=== PATIENT | male | born 1945 | race Caucasian/White ===

== ENCOUNTER → 2016-07-12 | Outpatient (CLI) | payer MEDICARE, OTHER ==
--- NOTE | 2016-07-12 13:00 | CT ---
EXAMINATION TYPE: CT brain wo con DATE OF EXAM: 07/12/2016 12:46 PM COMPARISON: CT brain February 17, 2009 HISTORY: Parkinson's disease per order. Symptoms of change in memory and sense of falling per patient with weakness in legs. CT DLP: 1054.2 mGycm. Automated Exposure Control for Dose Reduction was Utilized. TECHNIQUE: CT scan of the head is performed without contrast. FINDINGS: There is no acute intracranial hemorrhage or midline shift identified. There is ventricul ar and sulcal prominence consistent with mild age-related cerebral atrophy. Degree of ventricular dil atation is out of portion to degree of sulcal effacement and a normal pressure hydrocephalus cannot b e excluded. Similar findings are seen on prior exam but ventricular size appears slightly more promin ent. Bilateral basal ganglia calcifications are noted. The globes are intact and the visualized sinus es are clear. IMPRESSION: No acute intracranial hemorrhage or midline shift is seen. There is mild to moderate dif fuse cerebral atrophy with a mild to moderate generalized hydrocephalus felt present. Consider NPH. C linical correlation advised.
== END ==
LOC: RADCTMAIN 12:24
PROVIDERS: ATTEND Psychiatry & Neurology Neurology
DX: G20 Parkinson's disease (principal); G91.9 Hydrocephalus, unspecified
CPT/HCPCS: 70450

== ENCOUNTER 2016-08-19 17:36 | Inpatient (IN) | payer MEDICARE, OTHER ==
[2016-08-19] MEDS ORDERED: SODIUM CHLORIDE 0.9% 1,000 ML IV STA (17:57)
--- NOTE | 2016-08-19 18:17 | ED ---
General Adult HPI - General Chief complaint: Weakness Stated complaint: weakness, cannot walk Time Seen by Provider: 08/19/16 17:57 Source: patient, family, RN notes reviewed, old records reviewed Mode of arrival: wheelchair Limitations: physical limitation - History of Present Illness Initial comments: This is a 62-year-old male here for evaluation of a. Patient does present for evaluation of weakness, debility. Patient has history of Parkinson's, cultural fdc, patient's coming in from fdc today as he has increased ability weakness and inability to ambulate, no chest pain shortness of breath no abdominal pain, states recent cough and cold. No known fevers. No sick contacts or travel history. No change in medications of recent. Patient does have a neurologist, has not seen his neurologist in some time, is supposed to see neurosurgeon. Patient's weakness has progressed the point where he can't walk or function at home - Related Data Home Medications Medication Instructions Recorded Confirmed Allopurinol [Zyloprim] 100 mg PO HS 08/19/16 08/19/16 Atenolol/Chlorthalidone [Tenoretic 0.5 tab PO HS 08/19/16 08/19/16 50 Tablet] Carbidopa-Levodopa 25-100 mg 1 tab PO TID 08/19/16 08/19/16 [Sinemet 25-100] Divalproex Sodium [Depakote] 500 mg PO BID 08/19/16 08/19/16 Levothyroxine Sodium [Synthroid] 50 mcg PO DAILY 08/19/16 08/19/16 OLANZapine [ZyPREXA] 2.5 mg PO HS 08/19/16 08/19/16 OLANZapine [ZyPREXA] 15 mg PO HS 08/19/16 08/19/16 Ziprasidone HCl [Geodon] 80 mg PO BID 08/19/16 08/19/16 Allergies Allergy/AdvReac Type Severity Reaction Status Date / Time No Known Allergies Allergy Verified 08/19/16 17:57 Review of Systems ROS Statement: Those systems with pertinent positive or pertinent negative responses have been documented in the HPI. ROS Other: All systems not noted in ROS Statement are negative. Past Medical History Past Medical History: COPD Additional Past Medical History / Comment(s): parkinsons History of Any Multi-Drug Resistant Organisms: None Reported Past Surgical History: Unable to Obtain Past Psychological History: No Psychological Hx Reported Smoking Status: Never smoker Past Alcohol Use History: None Reported Past Drug Use History: None Reported General Exam - General Exam Comments Initial Comments: Severe lower extremity weakness and overall rigidity and shaking Limitations: physical limitation General appearance: alert, in no apparent distress Head exam: Present: atraumatic, normocephalic, normal inspection Eye exam: Present: normal appearance, PERRL, EOMI. Absent: scleral icterus, conjunctival injection, periorbital swelling ENT exam: Present: normal exam, mucous membranes moist Neck exam: Present: normal inspection. Absent: tenderness, meningismus, lymphadenopathy Respiratory exam: Present: normal lung sounds bilaterally. Absent: respiratory distress, wheezes, rales, rhonchi, stridor Cardiovascular Exam: Present: regular rate, normal rhythm, normal heart sounds. Absent: systolic murmur, diastolic murmur, rubs, gallop, clicks GI/Abdominal exam: Present: soft, normal bowel sounds. Absent: distended, tenderness, guarding, rebound, rigid Extremities exam: Present: normal inspection, full ROM, normal capillary refill. Absent: tenderness, pedal edema, joint swelling, calf tenderness Back exam: Present: normal inspection Neurological exam: Present: alert, oriented X3, CN II-XII intact Psychiatric exam: Present: normal affect, normal mood Skin exam: Present: warm, dry, intact, normal color. Absent: rash Course Vital Signs 08/19/16 08/19/16 08/19/16 17:40 18:17 18:23 Temperature 97.3 F L Pulse Rate 74 79 Respiratory 20 18 22 Rate Blood Pressure 138/77 160/74 O2 Sat by Pulse 98 95 Oximetry 08/19/16 08/19/16 19:06 20:17 Temperature Pulse Rate 95 62 Respiratory 18 18 Rate Blood Pressure 144/75 130/77 O2 Sat by Pulse 97 98 Oximetry - Reevaluation(s) Reevaluation #1: 08/19/16 20:23 Patient has no seen neurological deficit, inability to ambulate when prompted EKG Findings - EKG Comments: EKG Findings:: EKG shows normal sinus rhythm rate of 71, MD 162, QRS 104, QTc 456 Medical Decision Making - Medical Decision Making 6 [id number] Parkinson's, worsening parkinsonism inability to ambulate, patient does have a neurologist Dr. Beaulieu, Will admit Parkinson's exacerbation worsening of Parkinson's and debility. Patient also having overall weakness. - Lab Data Result diagrams: 08/19/16 18:05 08/19/16 18:05 Lab Results 08/19/16 08/19/16 08/19/16 Range/Units 18:05 18:05 18:05 WBC 6.9 (3.8-10.6) k/uL RBC 4.07 L (4.30-5.90) m/uL Hgb 13.5 (13.0-17.5) gm/dL Hct 39.2 (39.0-53.0) % MCV 96.2 (80.0-100.0) fL MCH 33.2 (25.0-35.0) pg MCHC 34.5 (31.0-37.0) g/dL RDW 12.6 (11.5-15.5) % Plt Count 188 (150-450) k/uL Neutrophils % 63 % Lymphocytes % 21 % Monocytes % 9 % Eosinophils % 4 % Basophils % 1 % Neutrophils # 4.4 (1.3-7.7) k/uL Lymphocytes # 1.5 (1.0-4.8) k/uL Monocytes # 0.6 (0-1.0) k/uL Eosinophils # 0.3 (0-0.7) k/uL Basophils # 0.0 (0-0.2) k/uL PT (9.0-12.0) sec INR (<1.1) APTT (22.0-30.0) sec Sodium 145 (137-145) mmol/L Potassium 3.2 L (3.5-5.1) mmol/L Chloride 102 (98-107) mmol/L Carbon Dioxide 32 H (22-30) mmol/L Anion Gap 11 mmol/L BUN 22 H (9-20) mg/dL Creatinine 1.09 (0.66-1.25) mg/dL Est GFR (MDRD) Af Amer >60 (>60 ml/min/1.73 sqM) Est GFR (MDRD) Non-Af >60 (>60 ml/min/1.73 sqM) Glucose 116 H (74-99) mg/dL Calcium 9.4 (8.4-10.2) mg/dL Phosphorus 3.6 (2.5-4.5) mg/dL Magnesium 1.8 (1.6-2.3) mg/dL Total Bilirubin 0.7 (0.2-1.3) mg/dL AST 26 (17-59) U/L ALT 18 L (21-72) U/L Alkaline Phosphatase 88 (38-126) U/L Total Creatine Kinase 50 L (55-170) U/L CK-MB (CK-2) 0.4 (0.0-2.4) ng/mL CK-MB (CK-2) Rel Index 0.8 Troponin I <0.012 (0.000-0.034) ng/mL Total Protein 7.1 (6.3-8.2) g/dL Albumin 3.8 (3.5-5.0) g/dL Urine Color Urine Appearance (Clear) Urine pH (5.0-8.0) Ur Specific Carr (1.001-1.035) Urine Protein (Negative) Urine Glucose (UA) (Negative) Urine Ketones (Negative) Urine Blood (Negative) Urine Nitrite (Negative) Urine Bilirubin (Negative) Urine Urobilinogen (<2.0) mg/dL Ur Leukocyte Esterase (Negative) 08/19/16 08/19/16 Range/Units 18:05 18:55 WBC (3.8-10.6) k/uL RBC (4.30-5.90) m/uL Hgb (13.0-17.5) gm/dL Hct (39.0-53.0) % MCV (80.0-100.0) fL MCH (25.0-35.0) pg MCHC (31.0-37.0) g/dL RDW (11.5-15.5) % Plt Count (150-450) k/uL Neutrophils % % Lymphocytes % % Monocytes % % Eosinophils % % Basophils % % Neutrophils # (1.3-7.7) k/uL Lymphocytes # (1.0-4.8) k/uL Monocytes # (0-1.0) k/uL Eosinophils # (0-0.7) k/uL Basophils # (0-0.2) k/uL PT 9.7 (9.0-12.0) sec INR 0.9 (<1.1) APTT 22.3 (22.0-30.0) sec Sodium (137-145) mmol/L Potassium (3.5-5.1) mmol/L Chloride (98-107) mmol/L Carbon Dioxide (22-30) mmol/L Anion Gap mmol/L BUN (9-20) mg/dL Creatinine (0.66-1.25) mg/dL Est GFR (MDRD) Af Amer (>60 ml/min/1.73 sqM) Est GFR (MDRD) Non-Af (>60 ml/min/1.73 sqM) Glucose (74-99) mg/dL Calcium (8.4-10.2) mg/dL Phosphorus (2.5-4.5) mg/dL Magnesium (1.6-2.3) mg/dL Total Bilirubin (0.2-1.3) mg/dL AST (17-59) U/L ALT (21-72) U/L Alkaline Phosphatase (38-126) U/L Total Creatine Kinase (55-170) U/L CK-MB (CK-2) (0.0-2.4) ng/mL CK-MB (CK-2) Rel Index Troponin I (0.000-0.034) ng/mL Total Protein (6.3-8.2) g/dL Albumin (3.5-5.0) g/dL Urine Color Yellow Urine Appearance Clear (Clear) Urine pH 5.5 (5.0-8.0) Ur Specific Carr 1.016 (1.001-1.035) Urine Protein Trace H (Negative) Urine Glucose (UA) Negative (Negative) Urine Ketones Negative (Negative) Urine Blood Negative (Negative) Urine Nitrite Negative (Negative) Urine Bilirubin Negative (Negative) Urine Urobilinogen <2.0 (<2.0) mg/dL Ur Leukocyte Esterase Negative (Negative) - Radiology Data Radiology results: report reviewed (CT pain chest and pelvis are negative for acute disease), image reviewed Disposition Clinical Impression: Parkinsons disease, Weakness Disposition: ADMITTED IP TO THIS [facility] Condition: Fair Referrals: Marcial Diana MD [Primary Care Provider] - 1-2 days
[2016-08-19 18:34] LABS: Basophils % (A) 1 %; CH 33.9; CHCM 35.4; Eosinophils # (A) 0.3 k/uL (0-0.7); Eosinophils % (A) 4 %; HCT 39.2 % (39.0-53.0); HDW 2.64; HGB 13.5 gm/dL (13.0-17.5); Luc # (Auto) 0.15; Luc % (Auto) 2; Lymphocytes # (A) 1.5 k/uL (1.0-4.8); Lymphocytes % (A) 21 %; MCH 33.2 pg (25.0-35.0); MCHC 34.5 g/dL (31.0-37.0); MCV 96.2 fL (80.0-100.0); Mean Platelet Volume 6.9; Monocytes # (A) 0.6 k/uL (0-1.0); Monocytes % (A) 9 %; Neutrophils # (A) 4.4 k/uL (1.3-7.7); Neutrophils % (A) 63 %; RBC 4.07 m/uL (4.30-5.90); RDW 12.6 % (11.5-15.5); WBC 6.9 k/uL (3.8-10.6); WBC (Perox) 6.85
[2016-08-19 18:44] LABS: INR 0.9 (<1.1); Partial Thromboplastin Time 22.3 sec (22.0-30.0); Prothrombin Time 9.7 sec (9.0-12.0)
[2016-08-19 18:45] LABS: ALT 18 U/L (21-72); AST 26 U/L (17-59); Alkaline Phosphatase 88 U/L (38-126); Anion Gap 11 mmol/L; Blood Urea Nitrogen 22 mg/dL (9-20); Calcium 9.4 mg/dL (8.4-10.2); Carbon Dioxide 32 mmol/L (22-30); Chloride 102 mmol/L (98-107); Glucose 116 mg/dL (74-99); Magnesium 1.8 mg/dL (1.6-2.3); Non-African American GFR(MDRD) >60 (>60 ml/min/1.73 sqM); Phosphorous 3.6 mg/dL (2.5-4.5); Potassium 3.2 mmol/L (3.5-5.1); Sodium 145 mmol/L (137-145); Total Bilirubin 0.7 mg/dL (0.2-1.3); Total Protein 7.1 g/dL (6.3-8.2)
[2016-08-19 19:08] LABS: Creatine Kinase 50 U/L (55-170)
[2016-08-19 19:12] LABS: Appearance,Urine Clear (Clear); Bilirubin,Urine Negative (Negative); Glucose,Urine (UA) Negative (Negative); Ketones,Urine Negative (Negative); Leukocyte Esterase,Urine Negative (Negative); Nitrite,Urine Negative (Negative); PH, Urine 5.5 (5.0-8.0); Protein,Urine Trace (Negative); Specific Gravity,Urine 1.016 (1.001-1.035); UA Billing (MACRO vs. MICRO) CHEM; Urobilinogen,Urine <2.0 mg/dL (<2.0)
[2016-08-19 19:22] LABS: Creatine Kinase MB 0.4 ng/mL (0.0-2.4); Troponin I <0.012 ng/mL (0.000-0.034)
--- NOTE | 2016-08-19 19:47 | XR ---
EXAMINATION TYPE: XR chest 1V DATE OF EXAM: 08/19/2016 7:41 PM COMPARISON: NONE HISTORY: Weakness, pain TECHNIQUE: Single frontal view of the chest is obtained. FINDINGS: There is no focal air space opacity, pleural effusion, or pneumothorax seen. The cardiac silhouette size is within normal limits. Lung volumes are low. The osseous structures are intact. IMPRESSION: No acute process. Follow-up as indicated.
--- NOTE | 2016-08-19 19:48 | XR ---
AP pelvis HISTORY: Weakness, unable to walk Single frontal view of the pelvis No comparisons Bone mineralization, joint spaces and alignment are maintained. IMPRESSION: No significant abnormalities evident.
--- NOTE | 2016-08-19 20:24 | CT ---
EXAMINATION TYPE: CT brain wo con DATE OF EXAM: 08/19/2016 8:13 PM COMPARISON: Prior CT brain 12 July 2016 HISTORY: weakness, Hx of Parkinson's disease. CT DLP: 1023.2 mGycm Automated exposure control for dose reduction was used. FINDINGS: There is no acute intracranial hemorrhage, mass effect, or midline shift identified. The ventricles and sulci are stable in size. The globes are intact and the visualized sinuses are clear. IMPRESSION: No acute intracranial hemorrhage, mass effect, or midline shift is seen. Correlate for possible kurt l pressure hydrocephalus.
[2016-08-19] MEDS: SODIUM CHLORIDE 0.9% 1,000 ML IV SCH (20:38)
[2016-08-19 21:26] VITALS: BMI 27.4
[2016-08-19] MEDS: CARBIDOPA-LEVODOPA 25-100 MG 1 EACH TAB PO SCH (22:22)
[2016-08-19] MEDS: ALLOPURINOL 100 MG TAB PO SCH (22:22)
[2016-08-19] MEDS: OLANZapine 5 MG TAB PO SCH (22:22)
[2016-08-19] MEDS: CHLORTHALIDONE 25 MG TAB PO SCH (22:22)
[2016-08-19] MEDS: ZIPRASIDONE 80 MG CAP PO SCH (22:22)
[2016-08-19] MEDS: OLANZapine 2.5 MG TAB PO SCH (22:22)
[2016-08-19] MEDS: DIVALPROEX 500 MG TABLET.DR PO SCH (22:22)
[2016-08-20] MEDS: LEVOTHYROXINE 50 MCG TAB PO SCH (06:01)
[2016-08-20] MEDS: SODIUM CHLORIDE 0.9% 1,000 ML IV SCH ×2 (09:10→18:01)
[2016-08-20] MEDS: ZIPRASIDONE 80 MG CAP PO SCH ×2 (09:15→21:12)
[2016-08-20] MEDS: CARBIDOPA-LEVODOPA 25-100 MG 1 EACH TAB PO SCH ×3 (09:15→21:11)
[2016-08-20] MEDS: DIVALPROEX 500 MG TABLET.DR PO SCH ×2 (09:15→21:12)
[2016-08-20] MEDS: ENOXAPARIN 40 MG/0.4 ML SYRINGE SQ SCH (10:24)
--- NOTE | 2016-08-20 18:29 | P.CNNES ---
History of Present Illness Consult date: 08/20/16 History of Present Illness: The patient is a 70-year-old man history of Parkinson's disease and schizophrenia. He has had a long standing history of abnormal gait. The patient isn't in AF home and according to the home the patient has had more difficulty ambulating over the past 2 months. He did have a CAT scan of the brain in June as well as a repeat CAT scan on this admission which was stable. There was question of possible NPH. The patient was referred for neurosurgical evaluation. The patient has no complaints of back pain. Apparently his been walking with a walker up until a few months ago and then he is been more in the wheelchair. However bearing weight and going to appointments and going to the bathroom as bearing his weight up until last weekend. Was having more difficulty with managing the patient requiring 2 person assist. He has been on Sinemet 25/100 3 times a day. His been no difficulty swallowing or tremors. Patient was brought into the emergency room on 08/19/2016 history of increased difficulty walking and general weakness. Review of Systems ROS unobtainable: due to mental status Past Medical History Past Medical History: COPD Additional Past Medical History / Comment(s): parkinsons History of Any Multi-Drug Resistant Organisms: None Reported Past Surgical History: Unable to Obtain Past Psychological History: No Psychological Hx Reported Smoking Status: Never smoker Past Alcohol Use History: None Reported Past Drug Use History: None Reported Medications and Allergies Home Medications Medication Instructions Recorded Confirmed Type Allopurinol [Zyloprim] 100 mg PO HS 08/19/16 08/19/16 History Atenolol/Chlorthalidone [Tenoretic 0.5 tab PO HS 08/19/16 08/19/16 History 50 Tablet] Carbidopa-Levodopa 25-100 mg 1 tab PO TID 08/19/16 08/19/16 History [Sinemet 25-100] Divalproex Sodium [Depakote] 500 mg PO BID 08/19/16 08/19/16 History Levothyroxine Sodium [Synthroid] 50 mcg PO DAILY 08/19/16 08/19/16 History OLANZapine [ZyPREXA] 2.5 mg PO HS 08/19/16 08/19/16 History OLANZapine [ZyPREXA] 15 mg PO HS 08/19/16 08/19/16 History Ziprasidone HCl [Geodon] 80 mg PO BID 08/19/16 08/19/16 History Allergies Allergy/AdvReac Type Severity Reaction Status Date / Time No Known Allergies Allergy Verified 08/19/16 17:57 Physical Examination - Vital Signs Vital Signs: Vital Signs Temp Pulse Pulse Resp BP BP Pulse Ox 08/20/16 15:00 98.6 F 90 18 118/68 93 L 08/20/16 08:56 96 08/20/16 08:00 83 16 08/20/16 07:00 97.9 F 83 18 134/76 90 L 08/19/16 23:34 68 16 08/19/16 22:59 98.4 F 68 16 111/63 97 08/19/16 20:17 62 18 130/77 98 Intake and Output 08/20/16 08/20/16 08/20/16 06:59 14:59 22:59 Intake Total 590 Balance 590 Intake: Oral 590 Other: Voiding Method Urinal Urinal # Voids 2 1 1 - Constitutional General appearance: average body habitus - EENT EENT: PERRL, hearing intact, vision intact - Respiratory Respiratory: lungs clear - Cardiovascular Cardiovascular: regular rate - Gastrointestinal Gastrointestinal: soft - Integumentary Integumentary: normal - Neurologic Mental status the patient was awake and alert. He has a soft murmuring speech but is able to communicate and answer simple questions. Does have moderate to severe mental impairment Cranial nerve examination: EOMI, VFF, face symmetric, tongue midline Sensorimotor examination: intact Detailed motor examination: other (The patient has good strength in his upper extremities. When testing his lower extremities initially shows little response to lifting his legs off of the bed however when asked to try harder and he is able to lift his leg up above 30 and sustain it for 5 seconds) Detailed sensory examination: light touch - Musculoskeletal Musculoskeletal: other (He does have rigidity in both upper extremities) - Psychiatric Psychiatric: cooperative Results - Laboratory Findings CBC and BMP: 08/19/16 18:05 08/19/16 18:05 Assessment and Plan (1) Parkinsons disease Status: Chronic (2) Abnormality of gait Status: Acute Code(s): R26.9 - UNSPECIFIED ABNORMALITIES OF GAIT AND MOBILITY (3) NPH (normal pressure hydrocephalus) Status: Acute Code(s): G91.2 - (IDIOPATHIC) NORMAL PRESSURE HYDROCEPHALUS Plan: The patient is a 70-year-old resident of a [place] [facility] facility with increasing gait abnormality. He has a history of Parkinson's disease and is on Sinemet. He has no other worsening symptoms of Parkinson's disease such as increased bradykinesia or difficulty swallowing etc. His tremors seem to be controlled. Will give a trial dose of increased Sinemet to see if his symptoms improve. There is the possibility of mild NPH is CAT scan of the brain has been stable since June. He does not have incontinence. Review of his CAT scan reveals mildly enlarged ventricles however neurosurgical consultation was requested as outpatient. The patient is no longer able to be maintained at his present facility since he is requiring 2 person assist. Will need rehab.. if increasing dose of Sinemet does not improve symptoms we'll consider therapeutic spinal tap to see if NPH is possibly contributing to his gait abnormality.
[2016-08-20] MEDS: OLANZapine 5 MG TAB PO SCH (21:11)
[2016-08-20] MEDS: OLANZapine 2.5 MG TAB PO SCH (21:11)
[2016-08-20] MEDS: CHLORTHALIDONE 25 MG TAB PO SCH (21:11)
[2016-08-20] MEDS: ATENOLOL 25 MG TAB PO SCH (21:12)
[2016-08-20] MEDS: ALLOPURINOL 100 MG TAB PO SCH (21:12)
[2016-08-21] MEDS: LEVOTHYROXINE 50 MCG TAB PO SCH (05:42)
[2016-08-21] MEDS: SODIUM CHLORIDE 0.9% 1,000 ML IV SCH ×3 (05:44→23:52)
--- NOTE | 2016-08-21 06:22 | HP ---
DATE OF ADMISSION: CHIEF COMPLAINT: Generalized weakness and malaise. HISTORY OF PRESENT ILLNESS: This is on the first known admission for this 70-year-old demented white male with Parkinson disease. He cannot give a history. He was brought in by the skilled nursing stating that he had been failing to thrive and having generalized weakness. There are no other details. There apparently has been no vomiting, cough, fever, chills, GI or complaints, etc. REVIEW OF SYSTEMS: Unobtainable from this patient. Past medical history, family history and personal and social histories are unobtainable. He is on: 1. Vitamin D 50,000 units a month. 2. Allopurinol 100 mg once a day. 3. Levothyroxine 0.05 once a day. 4. Tenoretic 50/25, one-half tablet each day. 5. Zyprexa 15 mg once a day. 6. Geodon 80 mg twice a day. 7. Depakote 500 mg twice a day. 8. Sinemet 25/100 one t.i.d. Remainder of his history is unremarkable. PHYSICAL EXAM: Blood pressure is 100/70, pulse 70, respirations 16, and temperature 97.9. GENERAL: He appeared to be well developed, well nourished and slightly pale. Skin was dry. Head, ears, eyes, nose, mouth, and throat were normal. Neck veins are not distended. Chest is clear. Cardiac exam demonstrated what sounded like sinus rhythm. ABDOMEN: Soft, nontender. There are no masses. EXTREMITIES: Normal. NEUROLOGICAL: Other than his mentation, he is intact. IMPRESSION: 1. Failure to thrive. 2. Generalized weakness. 3. Parkinson's disease. 4. Dementia. PLAN: 1. Bed rest. 2. IV fluids. 3. Workup for reasons for generalized weakness and failure to thrive.
--- NOTE | 2016-08-21 06:37 | PN ---
DATE OF SERVICE: 08/20/2016 CHIEF COMPLAINT: General debility, progressive weakness and Parkinson's disease. HISTORY OF PRESENT ILLNESS: The patient seems stable. He cannot give a history. PHYSICAL EXAM: He is awake and alert, but is somewhat pale and gaunt. His chest is clear. Cardiac exam is normal. ABDOMEN: Soft, nontender. IMPRESSION: 1. Progressive weakness probably due to Parkinson's disease. 2. General debility. 3. Mental incapacitation. PLAN: Continue workup for eventual placement.
[2016-08-21] MEDS: ZIPRASIDONE 80 MG CAP PO SCH ×2 (09:53→21:18)
[2016-08-21] MEDS: ENOXAPARIN 40 MG/0.4 ML SYRINGE SQ SCH (09:53)
[2016-08-21] MEDS: DIVALPROEX 500 MG TABLET.DR PO SCH ×2 (09:53→21:16)
[2016-08-21] MEDS: CARBIDOPA-LEVODOPA 25-100 MG 1 EACH TAB PO SCH ×4 (09:54→21:16)
--- NOTE | 2016-08-21 19:51 | P.PN ---
Subjective Principal diagnosis: Parkinson's disease The patient is a 70-year-old man with Parkinson's disease and schizophrenia with gait disorder. The patient reports that he did stand today. Rarely the patient did stand and get to the commode with the assistance of 3 people. Patient continues to deny back pain or leg pain. He is able to raise his legs against gravity while lying flat. When trying to stand however he resists putting pressure on his legs to stand. Objective - Vital Signs Vital signs: Vital Signs Temp 98.3 F 08/21/16 15:00 Pulse 72 08/21/16 15:00 Resp 16 08/21/16 15:00 BP 112/61 08/21/16 15:00 Pulse Ox 97 08/21/16 15:00 Intake & Output 08/21/16 08/21/16 08/22/16 06:59 18:59 06:59 Intake Total 800 Balance 800 Intake: Intake, IV Titration 800 Amount Sodium Chloride 0.9% 1, 800 000 ml @ 100 mls/hr IV . Q10H [facility] Rx#:[id number] Other: Voiding Method Urinal Diaper # Voids 1 1 - Constitutional General appearance: Present: average body habitus - Neurologic Neurologic Comment(s): Mental status he has moderate cognitive impairment. Neurologic: Present: CNII-XII intact (He is able to lift both arms up against gravity and lift both legs up against gravity.) - Additional findings Additional findings: Moderate cognitive impairment - Labs CBC & Chem 7: 08/19/16 18:05 08/19/16 18:05 Assessment and Plan (1) Parkinsons disease Status: Chronic Code(s): G20 - PARKINSON'S DISEASE (2) Abnormality of gait Status: Acute Code(s): R26.9 - UNSPECIFIED ABNORMALITIES OF GAIT AND MOBILITY (3) NPH (normal pressure hydrocephalus) Status: Acute Code(s): G91.2 - (IDIOPATHIC) NORMAL PRESSURE HYDROCEPHALUS (4) Weakness Status: Acute Code(s): R53.1 - WEAKNESS Plan: The patient has had increased dose of Sinemet without much change. He did get up to stand to commode with the assistance of 3 people. Apparently he resist putting his feet to the ground. We'll check imaging study of the lumbar spine to rule out disc pathology
[2016-08-21] MEDS: CHLORTHALIDONE 25 MG TAB PO SCH (21:15)
[2016-08-21] MEDS: OLANZapine 2.5 MG TAB PO SCH (21:16)
[2016-08-21] MEDS: ATENOLOL 25 MG TAB PO SCH (21:16)
[2016-08-21] MEDS: ALLOPURINOL 100 MG TAB PO SCH (21:17)
[2016-08-21] MEDS: OLANZapine 5 MG TAB PO SCH (21:17)
[2016-08-22] MEDS: SODIUM CHLORIDE 0.9% 1,000 ML IV SCH ×3 (08:37→19:35)
[2016-08-22] MEDS: LEVOTHYROXINE 50 MCG TAB PO SCH (08:37)
[2016-08-22] MEDS: ENOXAPARIN 40 MG/0.4 ML SYRINGE SQ SCH (08:37)
[2016-08-22] MEDS: ZIPRASIDONE 80 MG CAP PO SCH ×2 (08:37→20:24)
[2016-08-22] MEDS: DIVALPROEX 500 MG TABLET.DR PO SCH ×2 (08:37→20:24)
[2016-08-22] MEDS: CARBIDOPA-LEVODOPA 25-100 MG 1 EACH TAB PO SCH ×4 (08:37→20:24)
--- NOTE | 2016-08-22 08:50 | CT ---
EXAMINATION TYPE: CT lumbar spine wo con DATE OF EXAM: 08/22/2016 8:23 AM COMPARISON: NONE HISTORY: difficulty walking and weakness CT DLP: 626.9 mGycm CONTRAST: Unenhanced CT of the lumbar spine is performed , patient injected with mL of . Unenhanced CT of the lumbar spine was performed. Bone and soft tissue window settings are submitted as well as coronal and sagittal reconstructions. L1-L2: Normal disc space height. No disc herniation protrusion or central stenosis. No facet joint arthropathy. No evidence for foraminal encroachment. L2-L3: Normal disc space height. No disc herniation protrusion or central stenosis. No facet joint arthropathy. No evidence for foraminal encroachment. L3-L4: Normal disc space height. No disc herniation protrusion or central stenosis. No facet joint arthropathy. No evidence for foraminal encroachment. L4-L5: Mild degenerative disc space narrowing. Mild circumferential disc bulge greatest posteriorly. Mild effacement ventral thecal sac. No herniation or central stenosis. L5-S1: Mild degenerative disc space narrowing. Mild circumferential disc bulge greatest posteriorly. Mild effacement ventral thecal sac. No herniation or central stenosis. No paraspinal masses are identified. Lumbar segments are free if fracture. IMPRESSION: 1. Mild degenerative disc disease L4-5 and L5-S1 with disc bulge noted.
[2016-08-22 10:18] LABS: ALT 20 U/L (21-72); AST 26 U/L (17-59); Alkaline Phosphatase 83 U/L (38-126); Anion Gap 9 mmol/L; Blood Urea Nitrogen 14 mg/dL (9-20); Calcium 8.9 mg/dL (8.4-10.2); Carbon Dioxide 31 mmol/L (22-30); Chloride 108 mmol/L (98-107); Glucose 89 mg/dL (74-99); Non-African American GFR(MDRD) >60 (>60 ml/min/1.73 sqM); Potassium 3.8 mmol/L (3.5-5.1); Sodium 148 mmol/L (137-145); Total Bilirubin 0.7 mg/dL (0.2-1.3); Total Protein 6.4 g/dL (6.3-8.2)
[2016-08-22] MEDS: ALLOPURINOL 100 MG TAB PO SCH (20:24)
[2016-08-22] MEDS: CHLORTHALIDONE 25 MG TAB PO SCH (20:24)
[2016-08-22] MEDS: ATENOLOL 25 MG TAB PO SCH (20:24)
[2016-08-22] MEDS: OLANZapine 5 MG TAB PO SCH (20:25)
[2016-08-22] MEDS: OLANZapine 2.5 MG TAB PO SCH (20:29)
[2016-08-23] MEDS: SODIUM CHLORIDE 0.9% 1,000 ML IV SCH (05:24)
[2016-08-23] MEDS: LEVOTHYROXINE 50 MCG TAB PO SCH (06:27)
[2016-08-23 07:56] VITALS: RESP 18
[2016-08-23] MEDS: CARBIDOPA-LEVODOPA 25-100 MG 1 EACH TAB PO SCH ×4 (08:24→20:50)
[2016-08-23] MEDS: ENOXAPARIN 40 MG/0.4 ML SYRINGE SQ SCH (08:25)
[2016-08-23] MEDS: DIVALPROEX 500 MG TABLET.DR PO SCH ×2 (08:25→20:50)
[2016-08-23] MEDS: ZIPRASIDONE 80 MG CAP PO SCH ×2 (08:26→20:50)
[2016-08-23] MEDS: ATENOLOL 25 MG TAB PO SCH (20:49)
[2016-08-23] MEDS: ALLOPURINOL 100 MG TAB PO SCH (20:50)
[2016-08-23] MEDS: OLANZapine 5 MG TAB PO SCH (20:50)
[2016-08-23] MEDS: CHLORTHALIDONE 25 MG TAB PO SCH (20:50)
[2016-08-23] MEDS: OLANZapine 2.5 MG TAB PO SCH (20:50)
--- NOTE | 2016-08-23 21:31 | P.PN ---
Subjective Principal diagnosis: Recurrent falls The patient is a 70-year-old man with schizophrenia and Parkinson's disease. He has been admitted to the hospital with difficulty ambulating. The patient has been neurologically stable. He is laying in bed and is able to lift legs up against gravity. He had a CT of the lumbar spine did not show any definitive abnormality. Patient will be seeing neurosurgery as an outpatient to undergo testing to rule out NPH.. Objective - Vital Signs Vital signs: Vital Signs Temp 97.8 F 08/23/16 07:00 Pulse 62 08/23/16 16:00 Resp 18 08/23/16 16:00 BP 115/56 08/23/16 07:00 Pulse Ox 99 08/23/16 07:00 Intake & Output 08/23/16 08/23/16 08/24/16 06:59 18:59 06:59 Intake Total 1140 240 Output Total 3 Balance 1140 237 Weight 77.111 kg Intake: IV 900 Sodium Chloride 0.9% 1, 900 000 ml @ 100 mls/hr IV . Q10H [facility] Rx#:[id number] Oral 240 240 Output: Urine 3 Other: Voiding Method Diaper Diaper Incontinent Incontinent # Voids 1 1 # Bowel Movements 1 - Constitutional General appearance: Present: average body habitus - EENT ENT: Present: hearing grossly normal - Respiratory Respiratory: bilateral: CTA - Cardiovascular Rhythm: regular - Neurologic Neurologic Comment(s): The patient is awake alert and has moderate cognitive impairment speech is mumbled Neurologic: Present: CNII-XII intact - Musculoskeletal Musculoskeletal: Present: strength equal bilaterally - Labs CBC & Chem 7: 08/19/16 18:05 08/22/16 08:47 Assessment and Plan (1) Parkinsons disease Status: Chronic Code(s): G20 - PARKINSON'S DISEASE (2) Abnormality of gait Status: Acute Code(s): R26.9 - UNSPECIFIED ABNORMALITIES OF GAIT AND MOBILITY (3) NPH (normal pressure hydrocephalus) Status: Acute Code(s): G91.2 - (IDIOPATHIC) NORMAL PRESSURE HYDROCEPHALUS (4) Weakness Status: Acute Code(s): R53.1 - WEAKNESS Plan: The patient will continue on his present dose of Sinemet for his Parkinson's disease. He will have continued physical therapy. As an outpatient he will see neurosurgery for possibility of NPH although this is slight
[2016-08-24] MEDS: LEVOTHYROXINE 50 MCG TAB PO SCH (06:10)
[2016-08-24 07:37] VITALS: BP 116/67; TEMP 98
[2016-08-24] MEDS: ZIPRASIDONE 80 MG CAP PO SCH (08:26)
[2016-08-24] MEDS: CARBIDOPA-LEVODOPA 25-100 MG 1 EACH TAB PO SCH ×2 (08:26→12:56)
[2016-08-24] MEDS: DIVALPROEX 500 MG TABLET.DR PO SCH (08:26)
[2016-08-24] MEDS: ENOXAPARIN 40 MG/0.4 ML SYRINGE SQ SCH (08:26)
[2016-08-24 10:35] VITALS: PULSE 62
--- NOTE | 2016-08-24 12:57 | DS ---
DATE OF ADMISSION: 08/19/2016 DATE OF DISCHARGE: CHIEF COMPLAINT: Generalized weakness. History of present illness and physical examination: Details of this man's history and physical can be found in the initial work-up. LABORATORY STUDIES: While he was in the hospital, he had laboratory studies, the details of which can be found in the laboratory section of his chart. COURSE IN THE HOSPITAL: After admission, he was placed on bed rest and started on intravenous fluids and seen by Neurology. He himself has problems related to his Parkinson's disease. He had no further medical issues and arrangements were made for him to go to a correction. FINAL DIAGNOSES: 1. General debility. 2. Parkinson's disease. 3. Schizophrenia. 4. Mental Debility. OPERATIONS: None. CONSULTATIONS: Neurology. He is improved.
--- NOTE | 2016-08-24 20:30 | PN ---
DATE OF SERVICE: 08/21/2016 CHIEF COMPLAINT: Failure to thrive and weakness. HISTORY OF PRESENT ILLNESS: This gentleman remains essentially the same. It is not clear why he was admitted. PHYSICAL EXAMINATION: Chest is clear. Cardiac exam is normal. He is awake and alert but confused, which is his usual state. IMPRESSION: 1. Weakness and failure to thrive. 2. Parkinsonism. 3. Schizophrenia. 4. Mental debility. PLAN: No change in program. He is being evaluated by Neurology. The question is whether he will be able to go back to the skilled nursing or not.
--- NOTE | 2016-08-24 20:45 | PN ---
DATE OF SERVICE: 08/22/2016 CHIEF COMPLAINT: Weakness and debility probably due to exacerbation of Parkinson's disease. HISTORY OF PRESENT ILLNESS: This gentleman is doing a little bit better. Neurology is adjusting his medications, and he seems a little bit less tremulous. PHYSICAL EXAMINATION: He is pale. Chest is clear. Cardiac exam is normal. The abdomen is soft, nontender. IMPRESSION: 1. Exacerbation of Parkinson's disease. 2. Debility. 3. Schizophrenia. PLAN: Continue to follow with Neurology and await discharge planning.
--- NOTE | 2016-08-24 20:58 | PN ---
DATE OF SERVICE: 08/23/2016 CHIEF COMPLAINT: General debility and failure to thrive due to progressing Parkinson's disease. HISTORY OF PRESENT ILLNESS: This gentleman is doing just about the same. He is awake and alert and is as communicative as he ever is. PHYSICAL EXAMINATION: He is slightly pale. Chest is clear. Cardiac exam is normal. IMPRESSION: 1. General debility. 2. Exacerbation of Parkinson's disease. 3. Schizophrenia. 4. Mental debility. PLAN: He can go to his foster home or to a residential anytime.
== END 2016-08-24 15:45 | DRG 57 ==
LOC: EEVIPCON 17:36 → EC 17:36 → INTOOBSV 20:11 → 5ONC 20:11 → OBSVTOIN 20:13 → 5MS5E 08-21 20:43
PROVIDERS: ADMIT Family Medicine; ATTEND Family Medicine
DX: G20 Parkinson's disease (principal); G91.2 (Idiopathic) normal pressure hydrocephalus; F03.90 Unspecified dementia, unspecified severity, without behavioral disturbance, psychotic disturbance, mood disturbance, and anxiety; F20.9 Schizophrenia, unspecified; R29.6 Repeated falls; R62.7 Adult failure to thrive; Z79.899 Other long term (current) drug therapy
CPT/HCPCS: 36415; 70450; 71010; 72131; 72170; 80053; 81003; 82550; 82553; 83735; 84100; 84484; 85025; 85610; 85730; 87086; 93005; 94760; 96360; 96361; 99285

== ENCOUNTER → 2021-01-31 | Outpatient (CLI) | payer MEDICARE, OTHER ==
--- NOTE | 2021-01-31 13:21 | CT ---
EXAMINATION TYPE: CT brain wo con DATE OF EXAM: 01/31/2021 COMPARISON: 08/19/2016 INDICATION: Weakness DLP: 1260 mGycm, Automated exposure control for dose reduction was used. CONTRAST: None CT of the brain is performed utilizing 3 mm thick sections through the posterior fossa and 3 mm thick sections through the remaining calvarium. Study is performed within 24 hours of arrival to the hosp ital. No abnormal hyperdensity is present to suggest an acute intracranial hemorrhage. No mass lesion is evident. Physiologic basal ganglion calcification appears to be present bilaterally . No acute infarcts are evident. Periventricular white matter hypodensity is present, likely on the bas is of chronic white matter ischemic changes. Ventricles and sulci are prominent for the patient age. Some more focal prominence of the lateral ve ntricles may be present. However, no temporal horn dilatation is evident to suggest hydrocephalus. Fi ndings appear stable from comparison. Paranasal sinuses and mastoid air cells within the [id number] are clear. IMPRESSIONS: 1. Atrophy with mild periventricular white matter ischemic changes. Findings appear stable from 201 7.
== END | disposition home or self-care (01) ==
LOC: RADCTMAIN 12:27
PROVIDERS: ATTEND Psychiatry & Neurology Neurology
DX: I67.82 Cerebral ischemia (principal); G31.9 Degenerative disease of nervous system, unspecified
CPT/HCPCS: 70450

== ENCOUNTER 2022-11-27 14:07 | Inpatient (IN) | payer MEDICARE, OTHER ==
[2022-11-27] MEDS ORDERED: DEXAMETHASONE SOD PHOSPHATE 10 MG/ML 1 ML VIAL IV STA (14:14)
[2022-11-27] MEDS ORDERED: ONDANSETRON 4 MG/2 ML VIAL IVP STA (14:15)
[2022-11-27] MEDS ORDERED: AMPICILLIN-SULBACTAM 3 GM in SODIUM CHLORIDE 0.9% 100 ML IVPB STA (14:16)
[2022-11-27 14:27] LABS: VBG PH 7.38 (7.31-7.41)
[2022-11-27 14:28] LABS: Basophils % (A) 0 %; Eosinophils % (A) 1 %; HCT 35.3 % (39.0-53.0); HGB 11.7 gm/dL (13.0-17.5); Lymphocytes # (A) 1.4 k/uL (1.0-4.8); Lymphocytes % (A) 21 %; MCHC 33.1 g/dL (31.0-37.0); MCV 96.5 fL (80.0-100.0); Mean Platelet Volume 7.8; Monocytes # (A) 0.5 k/uL (0-1.0); Monocytes % (A) 7 %; Neutrophils # (A) 4.5 k/uL (1.3-7.7); Neutrophils % (A) 70 %; Platelet Count 220 k/uL (150-450); RBC 3.66 m/uL (4.30-5.90); RDW 12.9 % (11.5-15.5); WBC 6.5 k/uL (3.8-10.6)
[2022-11-27 14:37] LABS: Prothrombin Time 10.7 sec (9.0-12.0)
[2022-11-27 14:38] LABS: Partial Thromboplastin Time 23.4 sec (22.0-30.0)
--- NOTE | 2022-11-27 14:39 | ED ---
General Adult HPI - General Chief complaint: Shortness of Breath Stated complaint: DC Time Seen by Provider: 11/27/22 14:12 Source: patient, EMS, RN notes reviewed, old records reviewed Mode of arrival: EMS - History of Present Illness Initial comments: 77-year-old male presenting for evaluation of respiratory distress, hypoxia, nausea vomiting. Patient has apparently not been well for the past 3 days. He developed worsening respiratory status this afternoon just prior to arrival. He had vomited. Uncertain if he aspirated. He does test positive for coronavirus this morning. Patient is presenting from the assisted where he resides, he is a full code. He was placed on CPAP during transport for hypoxia. He has vomited twice. - Related Data Home Medications Medication Instructions Recorded Confirmed Atenolol/Chlorthalidone [Tenoretic 0.5 tab PO HS 08/19/16 08/19/16 50 Tablet] Carbidopa-Levodopa 25-100 mg 1 tab PO TID 08/19/16 08/19/16 [Sinemet 25-100 mg] Divalproex Sodium [Depakote] 500 mg PO BID 08/19/16 08/19/16 Levothyroxine Sodium [Synthroid] 50 mcg PO DAILY 08/19/16 08/19/16 OLANZapine [ZyPREXA] 2.5 mg PO HS 08/19/16 08/19/16 OLANZapine [ZyPREXA] 15 mg PO HS 08/19/16 08/19/16 allopurinoL [Zyloprim] 100 mg PO HS 08/19/16 08/19/16 ziprasidone HCL [Geodon] 80 mg PO BID 08/19/16 08/19/16 Allergies Allergy/AdvReac Type Severity Reaction Status Date / Time No Known Allergies Allergy Verified 08/19/16 17:57 Review of Systems ROS Statement: Those systems with pertinent positive or pertinent negative responses have been documented in the HPI. ROS Other: All systems not noted in ROS Statement are negative. Past Medical History Past Medical History: COPD Additional Past Medical History / Comment(s): parkinsons History of Any Multi-Drug Resistant Organisms: None Reported Past Surgical History: Unable to Obtain Past Psychological History: No Psychological Hx Reported Past Alcohol Use History: None Reported Past Drug Use History: None Reported - Past Family History Father History Unknown: Yes Mother History Unknown: Yes General Exam General appearance: alert, in distress Head exam: Present: atraumatic, normocephalic Eye exam: Present: normal appearance, PERRL ENT exam: Present: mucous membranes dry Neck exam: Present: normal inspection. Absent: tenderness, meningismus Respiratory exam: Present: respiratory distress, rales, rhonchi, decreased breath sounds Cardiovascular Exam: Present: regular rate, normal rhythm GI/Abdominal exam: Present: soft. Absent: distended, tenderness, guarding Extremities exam: Present: normal inspection, normal capillary refill. Absent: pedal edema, calf tenderness Neurological exam: Present: alert. Absent: motor sensory deficit Skin exam: Present: warm, pallor Course Vital Signs 11/27/22 11/27/22 14:08 14:15 Temperature 99 F Pulse Rate 89 Respiratory 24 Rate Blood Pressure 117/65 O2 Sat by Pulse 93 L Oximetry Medical Decision Making - Medical Decision Making Was pt. sent in by a medical professional or institution (, PA, REFINERY OPERATOR ALKYLATION, urgent care, hospital, or assisted...) When possible be specific @ -No Did you speak to anyone other than the patient for history (EMS, parent, family, police, friend...)? What history was obtained from this source @ -No Did you review nursing and triage notes (agree or disagree)? Why? @ -I reviewed and agree with nursing and triage notes Were old charts reviewed (outside hosp., previous admission, EMS record, old EKG, old radiological studies, urgent care reports/EKG's, assisted records)? Report findings @ -No old charts were reviewed Differential Diagnosis (chest pain, altered mental status, abdominal pain women, abdominal pain men, vaginal bleeding, weakness, fever, dyspnea, syncope, headache, dizziness, GI bleed, back pain, seizure, CVA, palpatations, mental health, musculoskeletal)? @ -Differential Dyspnea: Coronary syndrome, arrhythmia, tamponade, asthma, COPD, pulmonary embolism, pneumonia, pneumothorax, pulmonary effusion, anaphylaxis, diabetic ketoacidosis, flailed chest, pulmonary contusion, diaphragmatic rupture, anemia, neuromuscular, this is not meant to be an all-inclusive list. EKG interpreted by me (3pts min.). @ Sinus rhythm rate of 89, MN interval 196, QRS duration 111, QTC 373 moderate intraventricular conduction delay, tremor artifact limiting assessment. X-rays interpreted by me (1pt min.). @ No focal pneumonia, no pneumothorax CT interpreted by me (1pt min.). @ -None done U/S interpreted by me (1pt. min.). @ -None done What testing was considered but not performed or refused? (CT, X-rays, U/S, labs)? Why? @ -None What meds were considered but not given or refused? Why? @ -None Did you discuss the management of the patient with other professionals (professionals i.e. DrDu, PA, REFINERY OPERATOR ALKYLATION, lab, RT, psych nurse, director of social work, soil scientist, teacher, bank operations officer, telehealth case manager)? Give summary @ Dr. Diana has been paged Was smoking cessation discussed for >3mins.? @ -No Was critical care preformed (if so, how long)? @ -yes 35 Were there social determinants of health that impacted care today? How? (Homeles sness, low income, unemployed, alcoholism, drug addiction, transportation, low edu. Level, literacy, decrease access to med. care, senior care, rehab)? @ -No Was there de-escalation of care discussed even if they declined (Discuss DNR or withdrawal of care, Hospice)? DNR status @ -No What co-morbidities impacted this encounter? (DM, HTN, Smoking, COPD, CAD, Cancer, CVA, ARF, Chemo, Hep., AIDS, mental health diagnosis, sleep apnea, morbid obesity)? @ Multiple comorbidities Was patient admitted / discharged? Hospital course, mention meds given and route, prescriptions, significant lab abnormalities, going to OR and other pertinent info. @ -[77-year-old male presenting with nausea vomiting, hypoxia, concern for aspiration. Patient was diagnosed with coronavirus this morning. Apparently he's been sick for the past 3 days. History is obtained from paramedics. Hi story from the patient is quite limited. NG tube is placed for aspiration risk. Patient maintains his oxygenation on a nonrebreather. His chest x-ray is clear. CBC unremarkable. CMP and CRP are pending. Patient's given prophylactic antibiotics, steroids in the emergency department. He will be admitted to Dr. Diana and pulmonology will be placed on consult. Undiagnosed new problem with uncertain prognosis? @ -No Drug Therapy requiring intensive monitoring for toxicity (Heparin, Nitro, Insulin, Cardizem)? @ -No Were any procedures done? @ -No Diagnosis/symptom? @ Covid, hypoxia, aspiration Acute, or Chronic, or Acute on Chronic? @ -[Acute Uncomplicated (without systemic symptoms) or Complicated (systemic symptoms)? @ -[Uncomplicated Side effects of treatment? @ -No Exacerbation, Progression, or Severe Exacerbation? @ -No Poses a threat to life or bodily function? How? (Chest pain, USA, PR, pneumonia, PE, COPD, DKA, ARF, appy, cholecystitis, CVA, Diverticulitis, Homicidal, Suicidal, threat to staff... and all critical care pts) @ -yes, hypoxia, respiratory failure - Lab Data Result diagrams: 11/27/22 14:16 Lab Results 11/27/22 11/27/22 11/27/22 Range/Units 14:16 14:16 14:16 WBC 6.5 (3.8-10.6) k/uL RBC 3.66 L (4.30-5.90) m/uL Hgb 11.7 L (13.0-17.5) gm/dL Hct 35.3 L (39.0-53.0) % MCV 96.5 (80.0-100.0) fL MCH 32.0 (25.0-35.0) pg MCHC 33.1 (31.0-37.0) g/dL RDW 12.9 (11.5-15.5) % Plt Count 220 (150-450) k/uL MPV 7.8 Neutrophils % 70 % Lymphocytes % 21 % Monocytes % 7 % Eosinophils % 1 % Basophils % 0 % Neutrophils # 4.5 (1.3-7.7) k/uL Lymphocytes # 1.4 (1.0-4.8) k/uL Monocytes # 0.5 (0-1.0) k/uL Eosinophils # 0.0 (0-0.7) k/uL Basophils # 0.0 (0-0.2) k/uL PT 10.7 (9.0-12.0) sec INR 1.0 (<1.2) APTT 23.4 (22.0-30.0) sec VBG pH (7.31-7.41) VBG pCO2 (37-51) mmHg VBG HCO3 (24-28) mmol/L Plasma Lactic Acid Prince 2.0 (0.7-2.0) mmol/L 11/27/22 Range/Units 14:16 WBC (3.8-10.6) k/uL RBC (4.30-5.90) m/uL Hgb (13.0-17.5) gm/dL Hct (39.0-53.0) % MCV (80.0-100.0) fL MCH (25.0-35.0) pg MCHC (31.0-37.0) g/dL RDW (11.5-15.5) % Plt Count (150-450) k/uL MPV Neutrophils % % Lymphocytes % % Monocytes % % Eosinophils % % Basophils % % Neutrophils # (1.3-7.7) k/uL Lymphocytes # (1.0-4.8) k/uL Monocytes # (0-1.0) k/uL Eosinophils # (0-0.7) k/uL Basophils # (0-0.2) k/uL PT (9.0-12.0) sec INR (<1.2) APTT (22.0-30.0) sec VBG pH 7.38 (7.31-7.41) VBG pCO2 59 H (37-51) mmHg VBG HCO3 34 H (24-28) mmol/L Plasma Lactic Acid Prince (0.7-2.0) mmol/L Critical Care Time Critical Care Time: Yes Total Critical Care Time: 35 Disposition Clinical Impression: Parkinsons disease, COVID-19, Aspiration into airway Disposition: ADMITTED IP TO THIS [facility] Condition: Serious Is patient prescribed a controlled substance at d/c from ED?: No Referrals: Marcial Diana MD [Primary Care Provider] - 1-2 days Time of Disposition: 14:59
--- NOTE | 2022-11-27 14:50 | XR ---
EXAMINATION TYPE: XR chest 1V portable DATE OF EXAM: 11/27/2022 COMPARISON: NONE HISTORY: Shortness of breath TECHNIQUE: Single frontal view of the chest is obtained. FINDINGS: There is no focal air space opacity, pleural effusion, or pneumothorax seen. The cardiac silhouette size is within normal limits. Nipple shadow overlying the left midlung. The osseous structures are intact. Ectasia of the aorta. Arthropathy of the shoulders. Hyperinflation suggests COPD. NG tube seen with the tip at the GE junction. IMPRESSION: 1. No acute infiltrate. 2. NG tube is seen at the level of the GE junction recommend advancement by 3 to 4 cm.
[2022-11-27 14:51] LABS: ALT 12 U/L (4-49); AST 22 U/L (17-59); African American GFR (CKD) 89 (>60 ml/min/1.73 sqM); Albumin 3.5 g/dL (3.5-5.0); Alkaline Phosphatase 75 U/L (38-126); Anion Gap 8 mmol/L; Blood Urea Nitrogen 20 mg/dL (9-20); C Reactive Protein 4.3 mg/dL (<1.0); Calcium 9.2 mg/dL (8.4-10.2); Carbon Dioxide 33 mmol/L (22-30); Chloride 97 mmol/L (98-107); Glucose 144 mg/dL (74-99); Magnesium 1.6 mg/dL (1.6-2.3); Non-African American GFR(CKD) 77 (>60 ml/min/1.73 sqM); Potassium 3.7 mmol/L (3.5-5.1); Sodium 138 mmol/L (137-145); Total Bilirubin 0.4 mg/dL (0.2-1.3); Total Protein 7.1 g/dL (6.3-8.2)
[2022-11-27] MEDS ORDERED: NALOXONE 0.4 MG/ML 1 ML VIAL IV PRN (14:53)
[2022-11-27] MEDS: SODIUM CHLORIDE 0.9% 1,000 ML IV SCH (15:55)
[2022-11-27] MEDS ORDERED: SODIUM CHLORIDE 0.9% 1,000 ML IV ONE (17:23)
[2022-11-27] MEDS: AMPICILLIN-SULBACTAM 3 GM in SODIUM CHLORIDE 0.9% 100 ML IVPB SCH (19:37)
[2022-11-27] MEDS ORDERED: IPRATROPIUM-ALBUTEROL 3 ML NEB INHALATION PRN (23:59)
[2022-11-28] MEDS ORDERED: ONDANSETRON 4 MG/2 ML VIAL IVP PRN
--- NOTE | 2022-11-28 01:49 | P.CNPUL ---
History of Present Illness Consult date: 11/28/22 Requesting physician: Elier Preciado Reason for consult: other (COVID-19 infection and possible aspiration) Chief complaint: Respiratory distress and hypoxia History of present illness: I am seeing this patient in new consultation today 11/28/2022 is found to be in some respiratory distress and hypoxic at the [facility] where he resides. Patient is a 77-year-old male with past medical history significant for COPD, hypertension, hyperlipidemia, Parkinson's disease, and schizophrenia. The patient has been having some progressively worsening dyspnea over the past 3 days. The patient reportedly did test positive for COVID-19 at the outside facility earlier yesterday. He resides at [facility]. The patient's respiratory status did worsen yesterday afternoon. EMS was called. The patient was placed on the CPAP, and the patient did vomit multiple times. There was concern for possible aspiration. On arrival to the emergency department yesterday afternoon, the patient was transitioned to a 15 L nonrebreather. NG tube was inserted for gastric decompression. Chest x-ray did not show any acute infiltrates or evidence of pneumonia. The NG tube was at the level of the GE junction and recommended advancement approximately 4 cm. The patient is currently lying in bed, on a 10 L nonrebreather, in no acute distress. He is actually oxygenating at 99%, and could be transition to nasal cannula. He does have a very congested nonproductive cough. Cough is weak, and there appears to be a lot of upper airway secretions. Abdomen is soft and nontender, and does not appear acute. NG tube is to LIS with minimal output. He is a poor historian. He is currently afebrile. He was started on empiric Unasyn for possible aspiration. He was also given a dose of Decadron in the emergency room. CBC on arrival was unremarkable. BMP shows sodium 138, potassium 3.7, chloride 97, serum bicarb 33, BUN 20, creatinine 0.97, glucose 144. Normal saline is infusing at 100 ML's per hour. Patient did test positive for COVID-19. Procalcitonin is minimally elevated at 0.12. CRP 4.3. Vital signs are stable at this time. Review of Systems ROS unobtainable: due to mental status Past Medical History Past Medical History: COPD Additional Past Medical History / Comment(s): parkinsons History of Any Multi-Drug Resistant Organisms: None Reported Past Surgical History: Unable to Obtain Past Psychological History: No Psychological Hx Reported Smoking Status: Unknown if ever smoked Past Alcohol Use History: None Reported Past Drug Use History: None Reported - Past Family History Father History Unknown: Yes Mother History Unknown: Yes Medications and Allergies Home Medications Medication Instructions Recorded Confirmed Type Atenolol/Chlorthalidone [Tenoretic 0.5 tab PO HS 08/19/16 11/27/22 History 50 Tablet] Divalproex Sodium [Depakote] 500 mg PO BID 08/19/16 11/27/22 History Levothyroxine Sodium [Synthroid] 50 mcg PO DAILY 08/19/16 11/27/22 History allopurinoL [Zyloprim] 100 mg PO HS 08/19/16 11/27/22 History Acetaminophen Tab [Tylenol] 650 mg PO Q6H PRN 11/27/22 11/27/22 History Ascorbic Acid [Vitamin C] 1,000 mg PO DAILY 11/27/22 11/27/22 History Atorvastatin Calcium [Lipitor] 80 mg PO HS 11/27/22 11/27/22 History Healthshake 1 dose PO BID 11/27/22 11/27/22 History Multivitamins, Thera [Multivitamin 1 tab PO DAILY 11/27/22 11/27/22 History (formulary)] Potassium Chloride ER [K-Dur 10] 10 meq PO DAILY 11/27/22 11/27/22 History Quercetin 500 mg PO DAILY 11/27/22 11/27/22 History Sennosides/Docusate Sodium [Senna 1 tab PO BID 11/27/22 11/27/22 History Plus 8.6-50 mg Tablet] Zinc Gluconate [Zinc] 200 mg PO DAILY 11/27/22 11/27/22 History Allergies Allergy/AdvReac Type Severity Reaction Status Date / Time No Known Allergies Allergy Verified 11/27/22 16:00 Physical Exam Vitals: Vital Signs Temp Pulse Resp BP BP Pulse Ox FiO2 11/28/22 00:55 100 11/27/22 23:44 20 98/55 95 11/27/22 20:30 97.9 F 20 104/70 99 11/27/22 19:38 87 24 106/49 97 11/27/22 17:45 100 30 H 114/56 99 11/27/22 17:30 98.6 F 105 H 30 H 103/57 99 11/27/22 17:18 106 H 20 93/59 11/27/22 17:15 103 H 30 H 95/71 98 11/27/22 17:10 105 H 23 100/74 99 11/27/22 15:56 97 23 113/72 99 11/27/22 14:58 90 24 134/66 97 11/27/22 14:15 99 F 11/27/22 14:08 89 24 117/65 93 L Intake and Output 11/27/22 11/27/22 11/28/22 14:59 22:59 06:59 Intake Total 0 Balance 0 Intake: Oral 0 Other: Voiding Method Diaper Weight 56.245 kg 56.245 kg GENERAL EXAM: Alert, 77-year-old white male , fairly comfortable in no apparent distress. HEAD: Normocephalic and atraumatic EYES: Normal reaction of pupils, equal size. NOSE: Clear with pink turbinates. THROAT: No erythema or exudates. NECK: No masses, no JVD. CHEST: No chest wall deformity. LUNGS: Equal air entry with few bibasilar crackles. no wheeze, rhonchi or dullness. On a 10 L nonrebreather. No conversational dyspnea or accessory muscle use. There is a nonproductive congested cough. Weak cough. CVS: S1 and S2 normal with no audible murmur, regular rhythm. No extra heart sounds ABDOMEN: No hepatosplenomegaly, active bowel sounds, no guarding or rigidity. there is a NG tube through the right nare to LIS. Very minimal output. SPINE: No scoliosis or deformity SKIN: No rashes. There is a left lateral foot wound. CENTRAL NERVOUS SYSTEM: No focal deficits, tone is normal in all 4 extremities. He is altered and disoriented to place and time. EXTREMITIES: There is no peripheral edema or cyanosis. there is no clubbing in bilateral toenail onychomycosis. Peripheral pulses are intact. Results - Laboratory Findings CBC and BMP: 11/28/22 09:34 11/28/22 09:34 PT/INR, D-dimer PT 10.7 sec (9.0-12.0) 11/27/22 14:16 INR 1.0 (<1.2) 11/27/22 14:16 Abnormal lab findings: Abnormal Labs 11/27/22 11/27/22 11/27/22 14:16 14:16 14:16 RBC 3.66 L Hgb 11.7 L Hct 35.3 L VBG pCO2 VBG HCO3 Chloride 97 L Carbon Dioxide 33 H Glucose 144 H C-Reactive Protein 4.3 H Procalcitonin 0.12 H Coronavirus (PCR) 11/27/22 11/28/22 14:16 00:10 RBC Hgb Hct VBG pCO2 59 H VBG HCO3 34 H Chloride Carbon Dioxide Glucose C-Reactive Protein Procalcitonin Coronavirus (PCR) Detected A - Diagnostic Findings Chest x-ray: image reviewed Assessment and Plan Assessment: Acute hypoxemic respiratory failure secondary to COVID-19 infection and possible aspiration. Currently on a 10 L nonrebreather. Chest x-ray on arrival did not show any focal infiltrates or evidence of pneumonia. NG tube was inserted for gastric decompression. Patient did test positive for COVID-19. Chronic obstructive pulmonary disease, appears stable Essential hypertension Hyperlipidemia Parkinson's disease onychomycosis Plan: Patient's medications, labs, chest x-ray reviewed Continue supplemental oxygen and titrate FiO2. Likely we will transition to nasal cannula Advance NG tube 4 cm, there is limited output, and abdomen appears nonacute Zofran when necessary has antiemetic Repeat chest x-ray in the morning Continue empiric antibiotics for now Blood cultures are pending Add Bronchodilators I will add Decadron DVT prophylaxis with Lovenox We will continue to follow I have personally seen and examined the patient, performed the documentation and the assessment and plan as written. Number of minutes spent on the visit:20 This is a joint joint evaluation that was done along with the nurse practitioner. The patient is a alf resident. The patient was identified to be Covid 19 positive. The patient was briefly placed on a CPAP and the patient aspirated and the patient has a patchy pneumonia/consolidation in the left upper lobe/left lower lobe/perihilar area. The patient currently is on BiPAP at a pressure of 16 cm of water 100% the patient is calm and comfortable. NG tube is in place and output is minimal. No abdominal distention. No abdominal pain and abdominal exam essentially soft. He is pio erating the BiPAP without adding any major difficulties. His bili was is at 10.5 with a hemoglobin of 11.7. Blood gas was noted. He is also on Decadron regarding his Covid 19 infection. He was also started on IV Unasyn regarding aspiration pneumonia. We'll give the BiPAP for now. Evaluation was done in more than 30 minutes. The patient is a very poor historian. We'll check also inflammatory markers including LDH and CRP. Time with Patient: Greater than 30
[2022-11-28] MEDS: SODIUM CHLORIDE 0.9% 1,000 ML IV SCH ×2 (02:44→12:06)
[2022-11-28 03:14] LABS: ABG Base Excess 3.7 mmol/L; ABG HCO3 29 mmol/L (21-25); ABG Oxygen Saturation 99.2 % (94-97); ABG PCO2 50 mmHg (35-45); ABG PH 7.37 (7.35-7.45); ABG PO2 195 mmHg (83-108); ABG TCO2 31 mmol/L (19-24); Allen Test Performed? Yes
[2022-11-28] MEDS: AMPICILLIN-SULBACTAM 3 GM in SODIUM CHLORIDE 0.9% 100 ML IVPB SCH ×3 (03:35→20:59)
[2022-11-28] MEDS ORDERED: ALBUTEROL HFA INHALER INHALATION PRN (07:28)
[2022-11-28] MEDS ORDERED: IPRATROPIUM-ALBUTEROL 3 ML NEB INHALATION SCH (08:00)
--- NOTE | 2022-11-28 08:21 | XR ---
EXAMINATION TYPE: XR chest 1V portable DATE OF EXAM: 11/28/2022 COMPARISON: 11/27/2022 HISTORY: Possible aspiration TECHNIQUE: Single frontal view of the chest is obtained. FINDINGS: There is a large area of consolidation involving the right upper and lower lobe. Hyperinfl ation. No pleural effusion or pneumothorax. Arthropathy of the shoulders and hypertrophic with degene rative change spine. NG tube stable. Correlate for COPD. IMPRESSION: 1. Interval development of large area of consolidation in the left upper and lower lobe would be comp atible with pneumonia and aspiration pneumonia in the differential diagnosis. 2. Emphysema.
[2022-11-28] MEDS: ALBUTEROL HFA INHALER INHALATION SCH ×4 (09:01→20:13)
[2022-11-28] MEDS: TIOTROPIUM 2.5 MCG INHALER INHALATION SCH (09:02)
[2022-11-28] MEDS: DEXAMETHASONE SOD PHOSPHATE 10 MG/ML 1 ML VIAL IVP SCH (09:17)
[2022-11-28] MEDS: ENOXAPARIN 40 MG/0.4 ML SYRINGE SQ SCH (09:17)
[2022-11-28 10:49] LABS: Potassium 3.7 mmol/L (3.5-5.1)
[2022-11-28 10:50] LABS: African American GFR (CKD) >90 (>60 ml/min/1.73 sqM); Anion Gap 9 mmol/L; Blood Urea Nitrogen 19 mg/dL (9-20); Calcium 8.2 mg/dL (8.4-10.2); Carbon Dioxide 31 mmol/L (22-30); Chloride 101 mmol/L (98-107); Glucose 104 mg/dL (74-99); Non-African American GFR(CKD) 85 (>60 ml/min/1.73 sqM); Sodium 141 mmol/L (137-145)
[2022-11-28 11:30] LABS: HCT 37.5 % (39.0-53.0); HGB 11.7 gm/dL (13.0-17.5); Hypochromasia Slight; MCH 31.5 pg (25.0-35.0); MCHC 31.3 g/dL (31.0-37.0); MCV 100.8 fL (80.0-100.0); Mean Platelet Volume 8.1; Platelet Count 158 k/uL (150-450); RBC 3.72 m/uL (4.30-5.90); RDW 12.9 % (11.5-15.5); WBC 10.5 k/uL (3.8-10.6)
[2022-11-28 13:00] LABS: Band Neutrophils % 19 %; Eosinophils # (M) 0.11 k/uL (0-0.7); Lymphocytes # (M) 0.42 k/uL (1.0-4.8); Metamyelocytes # (M) 1.26 k/uL (0); Metamyelocytes % 12 %; Monocytes # (M) 0.74 k/uL (0-1.0); Myelocytes # (M) 0.63 k/uL (0); Myelocytes % 6 %; Neutrophils % (M) 53 %; Nucleated Red Blood Cells 0 /100 WBC (0-0); Total Cells Counted 200
[2022-11-28 14:13] LABS: C Reactive Protein 17.4 mg/dL (<1.0)
[2022-11-28] MEDS ORDERED: ACETAMINOPHEN TAB 325 MG TAB PO PRN (16:27)
[2022-11-28] MEDS: ASCORBIC ACID 500 MG TAB PO SCH (16:44)
[2022-11-28 17:13] LABS: ABG Base Excess 4.8 mmol/L; ABG HCO3 31 mmol/L (21-25); ABG Oxygen Saturation 89.4 % (94-97); ABG PCO2 63 mmHg (35-45); ABG PH 7.31 (7.35-7.45); ABG PO2 65 mmHg (83-108); ABG TCO2 33 mmol/L (19-24); Allen Test Performed? Yes
[2022-11-28 18:51] LABS: Glucose,Whole Blood 106 mg/dL (70-110)
--- NOTE | 2022-11-28 19:18 | P.PCN ---
Date of Procedure: 11/28/22 Description of Procedure: Date of Procedure: 11/28/22 Preoperative Diagnosis: Acute hypoxic respiratory failure Postoperative Diagnosis: Acute hypoxic respiratory failure Procedure(s) Performed: Central line, arterial line Anesthesia: local Surgeon: Smitha Mcdonnell Pathology: other Condition: critical Disposition: ICU Operative Findings: Indication: Hemodynamic monitoring/Intravenous access. A time-out was completed verifying correct patient, procedure, site, positioning, and implant(s) or special equipment if applicable. The patient was placed in a dependent position appropriate for central line placement based on the vein to be cannulated. The patients [right/left] shoulder left chest prepped and draped in sterile fashion. 1% Lidocaine was used to anesthetize the surrounding skin area. A triple lumen 9F Cordis catheter was introduced into the left subclavian vein using Seldinger technique. The catheter was threaded smoothly over the guide wire and appropriate blood return was obtained. Each lumen of the catheter was evacuated of air and flushed with sterile saline. The catheter was then sutured in place to the skin and a sterile dressing applied. Perfusion to the extremity distal to the point of catheter insertion was checked and found to be adequate. The patient tolerated the procedure well and there were no complications. Indication: Hemodynamic monitoring. A time-out was completed verifying correct patient, procedure, site, positioning, and implant(s) or special equipment if applicable. Allens test was performed to ensure adequate perfusion. The patient 's [right wrist was prepped and draped in sterile fashion. 1% Lidocaine was used to anesthetize the area. An 18G Arrow arterial line was introduced into the radial artery. The catheter was threaded over the guide wire and the needle was removed with appropriate pulsatile blood return. Blood loss was minimal. The catheter was then sutured in place to the skin and a sterile dressing applied. Perfusion to the extremity distal to the point of catheter insertion was checked and found to be adequate. The patient tolerated the procedure well and there were no complications.
--- NOTE | 2022-11-28 19:36 | XR ---
EXAMINATION TYPE: XR chest 1V portable DATE OF EXAM: 11/28/2022 7:29 PM COMPARISON: Chest radiographs from 11/28/2022 TECHNIQUE: XR chest 1V portable Frontal view of the chest. CLINICAL INDICATION:Male, 77 years old with history of line placement; FINDINGS: Lungs/Pleura: Similar left lung airspace opacities. There is no evidence of pleural effusion, focal c onsolidation, or pneumothorax. Skinfold to the right lung. Pulmonary vascularity: Unremarkable. Heart/mediastinum: Cardiomediastinal silhouette is unremarkable. Musculoskeletal: No acute osseous pathology. Other findings: None Lines/Tubes: Nasogastric tube is been removed. Left central venous catheter with distal tip at the cavoatrial junc tion. IMPRESSION: Left central venous catheter tip tip in appropriate position. Left lung airspace opacities.
[2022-11-28 23:21] LABS: Glucose,Whole Blood 132 mg/dL (70-110)
[2022-11-28] MEDS ORDERED: LORazepam 2 MG/ML INJ IV STA (23:28)
[2022-11-28] MEDS: allopurinoL 100 MG TAB PO SCH (23:41)
[2022-11-28] MEDS: atenoloL 25 MG TAB PO SCH (23:42)
[2022-11-28] MEDS: CHLORTHALIDONE 25 MG TAB PO SCH (23:42)
[2022-11-28] MEDS: DIVALPROEX 500 MG TABLET.DR PO SCH (23:42)
[2022-11-28] MEDS: SENNOSIDES-DOCUSATE SODIUM 1 EACH TAB PO SCH (23:42)
[2022-11-28] MEDS: ATORVASTATIN 80 MG TAB PO SCH (23:42)
[2022-11-29] MEDS: SODIUM CHLORIDE 0.9% 1,000 ML IV SCH ×3 (00:06→17:56)
[2022-11-29] MEDS ORDERED: VANCOMYCIN IV PER PHARMACY 1 EACH MISC MISCELLANE PRN (01:14)
[2022-11-29] MEDS ORDERED: SODIUM CHLORIDE 0.9% 500 ML 500 ML IV ONE (01:17)
[2022-11-29] MEDS ORDERED: VANCOMYCIN 1,250 MG in SODIUM CHLORIDE 0.9% 250 ML IVPB ONE (02:00)
[2022-11-29] MEDS ORDERED: GELATIN SPONGE,ABSORB (LARGE) 1 EACH SPONGE TOPICAL STA (02:32)
--- NOTE | 2022-11-29 04:31 | HP ---
HISTORY AND PHYSICAL CHIEF COMPLAINT: COVID pneumonia. HISTORY OF PRESENT ILLNESS: This is a first known admission for this 77-year-old mentally incapacitated schizophrenic inpatient to [facility]. There are new cases in the long-term. He was noted to be short of breath and was sent to the hospital. REVIEW OF SYSTEMS: Not obtainable. Past medical history, family history, and personal and social history are similarly unobtainable. He has been stable in the long-term for years. PHYSICAL EXAMINATION: VITAL SIGNS: Blood pressure is 129/74 with a pulse of 89, respirations of 36. He is afebrile. He is on BiPAP HEAD, EARS, EYES, NOSE, MOUTH AND THROAT: Normal could be examined with BiPAP in place. CHEST: Demonstrates good breath sounds bilaterally. CARDIAC: Normal. ABDOMEN: Soft and nontender. EXTREMITIES: Normal. He was pale. DIAGNOSES: He is admitted to the hospital with diagnoses of, 1. Coronavirus disease pneumonia. 2. Schizophrenia. 3. Mental incapacitation. PLAN: Respiratory management until he is stable enough to be sent back to the long-term. MMODL / IJN: [id number] /
--- NOTE | 2022-11-29 04:31 | PN ---
PROGRESS NOTE CHIEF COMPLAINT: COVID pneumonia. HISTORY OF PRESENT ILLNESS: This gentleman is stable on BiPAP. PHYSICAL EXAMINATION: LUNGS: There are good breath sounds bilaterally. CARDIAC: Normal. ABDOMEN: Soft, nontender. IMPRESSION: 1. Coronavirus disease pneumonia. 2. Schizophrenia. 3. Mental debility. PLAN: Continue with supportive respiratory care. MMODL / IJN: [id number] /
[2022-11-29 04:53] LABS: African American GFR (CKD) >90 (>60 ml/min/1.73 sqM); Anion Gap 3 mmol/L; Blood Urea Nitrogen 21 mg/dL (9-20); Calcium 7.5 mg/dL (8.4-10.2); Carbon Dioxide 29 mmol/L (22-30); Chloride 110 mmol/L (98-107); Glucose 121 mg/dL (74-99); Magnesium 1.5 mg/dL (1.6-2.3); Non-African American GFR(CKD) 89 (>60 ml/min/1.73 sqM); Potassium 3.5 mmol/L (3.5-5.1); Sodium 142 mmol/L (137-145)
[2022-11-29 04:54] LABS: HCT 30.5 % (39.0-53.0); MCH 31.7 pg (25.0-35.0); MCHC 32.1 g/dL (31.0-37.0); MCV 98.7 fL (80.0-100.0); Mean Platelet Volume 8.5; Platelet Count 177 k/uL (150-450); RBC 3.09 m/uL (4.30-5.90); WBC 14.2 k/uL (3.8-10.6)
[2022-11-29 04:55] LABS: HGB 9.8 gm/dL (13.0-17.5)
[2022-11-29] MEDS ORDERED: Magnesium Replacement Protocol 1 EACH MISC MISCELLANE PRN (05:04)
[2022-11-29] MEDS ORDERED: Potassium Replacement Protocol 1 EACH MISC MISCELLANE PRN (05:04)
[2022-11-29 05:14] LABS: Band Neutrophils % 60 %; Lymphocytes # (M) 1.14 k/uL (1.0-4.8); Metamyelocytes # (M) 0.85 k/uL (0); Metamyelocytes % 6 %; Monocytes # (M) 0.14 k/uL (0-1.0); Myelocytes # (M) 0.14 k/uL (0); Myelocytes % 1 %; Neutrophils % (M) 24 %; Nucleated Red Blood Cells 0 /100 WBC (0-0); Total Cells Counted 200; Toxic Granulation Present
[2022-11-29] MEDS: MAGNESIUM SULFATE-D5W PMX 1 GM in DEXTROSE/WATER 1 100ML.BAG IVPB SCH ×2 (05:26→06:42)
[2022-11-29] MEDS: POTASSIUM CHLORIDE 20 MEQ in WATER FOR INJECTION 1 100ML.BAG IVPB SCH ×2 (05:51→07:09)
[2022-11-29] MEDS: LEVOTHYROXINE 50 MCG TAB PO SCH (06:01)
[2022-11-29 06:06] LABS: Glucose,Whole Blood 121 mg/dL (70-110)
--- NOTE | 2022-11-29 07:55 | XR ---
EXAMINATION TYPE: XR chest 1V DATE OF EXAM: 11/29/2022 COMPARISON: 11/28/2022 HISTORY: 77-year-old male follow-up pneumonia TECHNIQUE: Single frontal view of the chest is obtained. FINDINGS: Heart normal size. Left subclavian CVC tip at the cavoatrial junction. Hyperinflation. Foc al left perihilar and left infrahilar opacity similar to minimally improved. No pleural effusion. IMPRESSION: COPD with left perihilar and left infrahilar pneumonia similar to minimally improved.
[2022-11-29] MEDS: DEXAMETHASONE SOD PHOSPHATE 10 MG/ML 1 ML VIAL IVP SCH (08:42)
[2022-11-29] MEDS: ENOXAPARIN 40 MG/0.4 ML SYRINGE SQ SCH (08:42)
[2022-11-29] MEDS: AMPICILLIN-SULBACTAM 3 GM in SODIUM CHLORIDE 0.9% 100 ML IVPB SCH ×3 (08:43→23:48)
[2022-11-29] MEDS ORDERED: NON FORMULARY DRUG (Quercetin [Quercetin] 500 MG Capsule) PO SCH (09:00)
[2022-11-29] MEDS ORDERED: ASCORBIC ACID 500 MG TAB PO SCH (09:00)
[2022-11-29] MEDS: ALBUTEROL HFA INHALER INHALATION SCH ×4 (09:01→21:20)
[2022-11-29] MEDS: TIOTROPIUM 2.5 MCG INHALER INHALATION SCH (09:01)
[2022-11-29] MEDS: ZINC SULFATE 220 MG CAP PO SCH (09:54)
[2022-11-29] MEDS: SENNOSIDES-DOCUSATE SODIUM 1 EACH TAB PO SCH ×2 (09:54→20:37)
[2022-11-29] MEDS: ASCORBIC ACID 500 MG TAB PO SCH (09:54)
[2022-11-29] MEDS: POTASSIUM CHLORIDE ER 10 MEQ TAB.ER.PRT PO SCH (09:54)
[2022-11-29] MEDS: DIVALPROEX 500 MG TABLET.DR PO SCH ×2 (09:54→20:37)
--- NOTE | 2022-11-29 10:02 | P.PN ---
Subjective Progress Note Date: 11/29/22 I am seeing this patient in new consultation today 11/28/2022 is found to be in some respiratory distress and hypoxic at the [facility] where he resides. Patient is a 77-year-old male with past medical history significant for COPD, hypertension, hyperlipidemia, Parkinson's disease, and schizophrenia. The patient has been having some progressively worsening dyspnea over the past 3 days. The patient reportedly did test positive for COVID-19 at the outside facility earlier yesterday. He resides at [facility]. The patient's respiratory status did worsen yesterday afternoon. EMS was called. The patient was placed on the CPAP, and the patient did vomit multiple times. There was concern for possible aspiration. On arrival to the emergency department yesterday afternoon, the patient was transitioned to a 15 L nonrebreather. NG tube was inserted for gastric decompression. Chest x-ray did not show any acute infiltrates or evidence of pneumonia. The NG tube was at the level of the GE junction and recommended advancement approximately 4 cm. The patient is currently lying in bed, on a 10 L nonrebreather, in no acute distress. He is actually oxygenating at 99%, and could be transition to nasal cannula. He does have a very congested nonproductive cough. Cough is weak, and there appears to be a lot of upper airway secretions. Abdomen is soft and nontender, and does not appear acute. NG tube is to LIS with minimal output. He is a poor historian. He is currently afebrile. He was started on empiric Unasyn for possible aspiration. He was also given a dose of Decadron in the emergency room. CBC on arrival was unremarkable. BMP shows sodium 138, potassium 3.7, chloride 97, serum bicarb 33, BUN 20, creatinine 0.97, glucose 144. Normal saline is infusing at 100 ML's per hour. Patient did test positive for COVID-19. Procalcitonin is minimally elevated at 0.12. CRP 4.3. Vital signs are stable at this time. Today's evaluation of 11/29/2022 the patient remains on a BiPAP. I transfer this patient to the intensive care unit yesterday. He was having continued labored breathing and he was decompensating even while being on a BiPAP. I'm over the to the intensive care. Initially, I was considering to intubate the patient. Subsequently, he stabilized and I kept him on BiPAP overnight and the BiPAP is running at rashes of 12 was 6 with a FiO2 of 60%. Chest x-ray from today is still showing a left perihilar pulmonary infiltrate which is similar and probably minimally improved compared to yesterday. The patient is diagnosed having Covid 19 infection and the patient remains on Decadron. The patient also had an aspiration event requiring broad-spectrum antibiotics and the patient is currently on IV Unasyn. Subsequent blood cultures showed gram-positive cocci and vancomycin was also added pending further cultures. On today's evaluation, he is hemodynamically stable. He is on IV fluids running at 100 mL an hour of normal saline. His blood gas is still pending from today. His illness, that 14.2 with a hemoglobin of 0.8 and a platelet count of 177. Sodium is at 142, serum bicarb is 29 with a BUN of 21 and a creatinine of 0.7. He is lethargic yet arousable. He doesn't communicate effectively. The patient has underlying chronic cognitive impairment and psychiatric disability. He does have a public guardian was given informed on his situation. He has been On a full CODE STATUS based on a court order. Objective - Vital Signs Vital signs: Vital Signs Temp 7.1 F L 11/29/22 08:00 Pulse 64 11/29/22 09:00 Resp 23 11/29/22 09:00 BP 101/46 11/29/22 07:00 Pulse Ox 100 11/29/22 09:00 FiO2 60 11/29/22 09:06 Intake & Output 11/28/22 11/29/22 11/29/22 18:59 06:59 18:59 Intake Total 1200 2450 200 Output Total 235 45 Balance 1200 2215 155 Weight 64.5 kg Intake: IV 200 Sodium Chloride 0.9% 1, 200 000 ml @ 100 mls/hr IV . Q10H [facility] Rx#:[id number] Intake, IV Titration 1200 2450 Amount Ampicillin-Sulbactam 3 gm 100 In Sodium Chloride 0.9% 100 ml @ 200 mls/hr IVPB Q8H [facility] Rx#:[id number] Magnesium Sulfate-D5w Pmx 200 1 gm In Dextrose/Water 1 100ml.bag @ 100 mls/hr IVPB Q1H [facility] Rx#: [id number] Potassium Chloride 20 meq 200 In Water For Injection 1 100ml.bag @ 50 mls/hr IVPB Q2H [facility] Rx#: [id number] Sodium Chloride 0.9% 1, 1200 1200 000 ml @ 100 mls/hr IV . Q10H [facility] Rx#:[id number] Sodium Chloride 0.9% 500 500 ml 500 ml @ 999 mls/hr IV .Q31M [facility] Rx#:[id number] Vancomycin 1,250 mg In 250 Sodium Chloride 0.9% 250 ml @ 125 mls/hr IVPB Q16H [facility] Rx#:[id number] Oral 0 Output: Urine 235 45 Uretheral (Sofia) 0 Other: Voiding Method Diaper Diaper Indwelling Catheter # Voids 2 1 ABP, PAP, CO, CI - Last Documented Arterial Blood Pressure 96/48 - Exam GENERAL EXAM: Alert, 77-year-old white male , fairly comfortable on BiPAP and the patient is tolerating the BiPAP without any major difficulties. NG tube has been removed. HEAD: Normocephalic and atraumatic EYES: Normal reaction of pupils, equal size. NOSE: Clear with pink turbinates. THROAT: No erythema or exudates. NECK: No masses, no JVD. CHEST: No chest wall deformity. LUNGS: Equal air entry with few bibasilar crackles. no wheeze, rhonchi or dullness. There is a nonproductive congested cough. Weak cough. CVS: S1 and S2 normal with no audible murmur, regular rhythm. No extra heart sounds ABDOMEN: No hepatosplenomegaly, active bowel sounds, no guarding or rigidity. there is a NG tube through the right nare to LIS. Very minimal output. SPINE: No scoliosis or deformity SKIN: No rashes. There is a left lateral foot wound. CENTRAL NERVOUS SYSTEM: No focal deficits, tone is normal in all 4 extremities. He is altered and disoriented to place and time. EXTREMITIES: There is no peripheral edema or cyanosis. there is no clubbing in bilateral toenail onychomycosis. Peripheral pulses are intact. - Labs CBC & Chem 7: 11/29/22 04:15 11/29/22 04:15 Labs: Abnormal Lab Results - Last 24 Hours (Table) 11/28/22 11/28/22 11/28/22 Range/Units 09:34 09:34 09:34 WBC (3.8-10.6) k/uL RBC 3.72 L (4.30-5.90) m/uL Hgb 11.7 L (13.0-17.5) gm/dL Hct 37.5 L (39.0-53.0) % MCV 100.8 H (80.0-100.0) fL Neutrophils # (Manual) (1.3-7.7) k/uL Lymphocytes # (Manual) 0.42 L (1.0-4.8) k/uL Metamyelocytes # (Man) 1.26 H (0) k/uL Myelocytes # (Manual) 0.63 H (0) k/uL ABG pH (7.35-7.45) ABG pCO2 (35-45) mmHg ABG pO2 (83-108) mmHg ABG HCO3 (21-25) mmol/L ABG Total CO2 (19-24) mmol/L ABG O2 Saturation (94-97) % Chloride (98-107) mmol/L Carbon Dioxide 31 H (22-30) mmol/L BUN (9-20) mg/dL Glucose 104 H (74-99) mg/dL POC Glucose (mg/dL) (70-110) mg/dL Calcium 8.2 L (8.4-10.2) mg/dL Magnesium (1.6-2.3) mg/dL C-Reactive Protein 17.4 H (<1.0) mg/dL 11/28/22 11/28/22 11/29/22 Range/Units 17:10 23:20 04:15 WBC 14.2 H (3.8-10.6) k/uL RBC 3.09 L (4.30-5.90) m/uL Hgb 9.8 L D (13.0-17.5) gm/dL Hct 30.5 L (39.0-53.0) % MCV (80.0-100.0) fL Neutrophils # (Manual) 11.90 H (1.3-7.7) k/uL Lymphocytes # (Manual) (1.0-4.8) k/uL Metamyelocytes # (Man) 0.85 H (0) k/uL Myelocytes # (Manual) 0.14 H (0) k/uL ABG pH 7.31 L (7.35-7.45) ABG pCO2 63 H (35-45) mmHg ABG pO2 65 L (83-108) mmHg ABG HCO3 31 H (21-25) mmol/L ABG Total CO2 33 H (19-24) mmol/L ABG O2 Saturation 89.4 L (94-97) % Chloride (98-107) mmol/L Carbon Dioxide (22-30) mmol/L BUN (9-20) mg/dL Glucose (74-99) mg/dL POC Glucose (mg/dL) 132 H (70-110) mg/dL Calcium (8.4-10.2) mg/dL Magnesium (1.6-2.3) mg/dL C-Reactive Protein (<1.0) mg/dL 11/29/22 11/29/22 Range/Units 04:15 06:05 WBC (3.8-10.6) k/uL RBC (4.30-5.90) m/uL Hgb (13.0-17.5) gm/dL Hct (39.0-53.0) % MCV (80.0-100.0) fL Neutrophils # (Manual) (1.3-7.7) k/uL Lymphocytes # (Manual) (1.0-4.8) k/uL Metamyelocytes # (Man) (0) k/uL Myelocytes # (Manual) (0) k/uL ABG pH (7.35-7.45) ABG pCO2 (35-45) mmHg ABG pO2 (83-108) mmHg ABG HCO3 (21-25) mmol/L ABG Total CO2 (19-24) mmol/L ABG O2 Saturation (94-97) % Chloride 110 H (98-107) mmol/L Carbon Dioxide (22-30) mmol/L BUN 21 H (9-20) mg/dL Glucose 121 H (74-99) mg/dL POC Glucose (mg/dL) 121 H (70-110) mg/dL Calcium 7.5 L (8.4-10.2) mg/dL Magnesium 1.5 L (1.6-2.3) mg/dL C-Reactive Protein (<1.0) mg/dL Microbiology - Last 24 Hours (Table) 11/27/22 14:16 Blood Culture Gram Stain - Preliminary Blood Assessment and Plan Assessment: Acute hypoxemic respiratory failure secondary to COVID-19 infection and possible aspiration. The patient's respiratory status decompensated and the patient had to be placed on a BiPAP yesterday and he remains on a BiPAP at a pressures of 12/6 with an FiO2 of 60%. Chest x-ray showing a left perihilar infiltrate. Breathing is less labored compared to yesterday and overall respiratory status is stable. Does not require to be intubated this point in time. Acute Covid 19 infection, currently on Decadron Acute aspiration with left perihilar pulmonary infiltrate/pneumonia Chronic obstructive pulmonary disease, appears stable Essential hypertension Hyperlipidemia Parkinson's disease onychomycosis Developmental delay/cognitive impairment custodial resident Plan: Continue BiPAP for now pressures of 12/6 and dropped FiO2 down to 40% Obtain a blood given 30 minutes May consider switching this patient to high flow oxygen system May need to check his swallow following his transitioned to high flow oxygen system Continue IV Unasyn Awaiting final culture with gram-positive in the blood and the patient is covered with vancomycin Aspiration precautions IV fluids normal sed rate of 100 mL an hour Full CODE STATUS Long-term prognosis poor based above-mentioned comorbidities. We'll continue to follow. Critical care evaluation that was done in more than 30 minutes. Time with Patient: Greater than 30
[2022-11-29 10:40] LABS: ABG Base Excess 3.6 mmol/L; ABG HCO3 29 mmol/L (21-25); ABG Oxygen Saturation 94.9 % (94-97); ABG PCO2 51 mmHg (35-45); ABG PH 7.36 (7.35-7.45); ABG PO2 75 mmHg (83-108); ABG TCO2 31 mmol/L (19-24); Allen Test Performed? Yes
[2022-11-29 11:55] LABS: Glucose,Whole Blood 107 mg/dL (70-110)
--- NOTE | 2022-11-29 12:58 | CDI ---
Documentation Clarification Form Date: From: Rebeca Stallworth Phone: [phone] Admit Date: 11/27/2022 02:55:00 PM Patient Name: Juan Manuel Zavala Visit Number: [id number] Discharge Date: ATTENTION: The Clinical Documentation Specialists (CDI) and [facility] Coding Staff appreciate your assistance in clarifying documentation. Please respond to the clarification below the line at the bottom and electronically sign. The CDI & [facility] Coding staff will review the response and follow-up if needed. Please note: Queries are made part of the Legal Health Record. If you have any questions, please contact the author of this message via ITS. Dr. Marcial Diana The patient has multiple SIRS criteria with an infectious process. Based on this information and the findings below, is there an additional diagnosis that is clinically appropriate for this patient? History/Risk Factors: "77-year-old male with past medical history significant for COPD, hypertension, hyperlipidemia, Parkinson's disease, and schizophrenia. The patient has been having some progressively worsening dyspnea over the past 3 days." - Per Pulmonology Note on 11/28 Clinical Indicators: "Acute hypoxemic respiratory failure secondary to COVID-19 infection and possible aspiration" "lethargic yet arousable" - Per Progress Note on 11/29 WBC: 11/27 - 6.5, 11/28 - 10.5, 11/29 - 14.2 Lactic acid: 11/27- 2.0 "Procalcitonin is minimally elevated at 0.12. CRP 4.3" - Per Pulmonology Note on 11/28 Blood cultures: "blood cultures showed gram-positive cocci" - Per Progress Note on 11/29 Vitals signs: 11/27 - Temp. 99F, HR 105, RR 30, BP 93/59 Treatment: Per Progress Note on 11/29 "Continue BiPAP May consider switching this patient to high flow oxygen system Continue IV Unasyn Vancomycin Aspiration precautions IV fluids normal sed rate of 100 mL an hour" "remains on Decadron" Is there an additional diagnosis that is clinically appropriate for this patient? [ ] Sepsis, present on admission [ ] Sepsis, developed during stay, not present on admission [ ] Severe Sepsis with organ failure [ ] Other, please specify [ ] Unable to determine SIRS Criteria: 2 or more of the following may indicate SIRS Temperature < 96.8F (36C) or > 101.0F (38.3C) Heart Rate > 90 bpm Respiratory Rate > 20 breaths/min or PaCO2 < 32 mmHg White Blood Cell Count > 12,000 or < 4,000 cells/mm3 or > 10% bands MTDD
[2022-11-29] MEDS: VANCOMYCIN 1,250 MG in SODIUM CHLORIDE 0.9% 250 ML IVPB SCH (13:30)
[2022-11-29] MEDS ORDERED: VANCOMYCIN 1,250 MG in SODIUM CHLORIDE 0.9% 250 ML IVPB SCH (18:00)
[2022-11-29 18:21] LABS: Glucose,Whole Blood 109 mg/dL (70-110)
--- NOTE | 2022-11-29 20:03 | PN ---
PROGRESS NOTE DATE OF SERVICE: 11/29/2022 CHIEF COMPLAINT: COVID pneumonia and respiratory failure. HISTORY OF PRESENT ILLNESS: This gentleman continues to have difficulty. He is still on BiPAP. Chest x-ray demonstrates a significantly increased bilateral infiltrates. PHYSICAL EXAMINATION: CHEST: Breath sounds are heard on both sides with occasional rale. CARDIAC: Normal. ABDOMEN: Soft and nontender. IMPRESSION: COVID pneumonia with respiratory acidosis and CO2 retention. PLAN: Continue to follow with Pulmonology. His outlook is generally not good at this point. MMODL / IJN: [id number] /
[2022-11-29] MEDS: atenoloL 25 MG TAB PO SCH (20:36)
[2022-11-29] MEDS: allopurinoL 100 MG TAB PO SCH (20:36)
[2022-11-29] MEDS: CHLORTHALIDONE 25 MG TAB PO SCH (20:37)
[2022-11-29] MEDS: ATORVASTATIN 80 MG TAB PO SCH (20:37)
[2022-11-29] MEDS: NOREPINEPHRINE 4 MG in SODIUM CHLORIDE 0.9% 250 ML IV SCH (22:29)
[2022-11-29 23:53] LABS: Glucose,Whole Blood 104 mg/dL (70-110)
[2022-11-30] MEDS: VANCOMYCIN 1,250 MG in SODIUM CHLORIDE 0.9% 250 ML IVPB SCH ×2 (02:08→13:01)
[2022-11-30] MEDS: SODIUM CHLORIDE 0.9% 1,000 ML IV SCH ×2 (02:08→13:02)
[2022-11-30 02:24] LABS: Basophils % (A) 0 %; Eosinophils % (A) 0 %; HCT 31.1 % (39.0-53.0); HGB 9.9 gm/dL (13.0-17.5); Hypochromasia Moderate; Lymphocytes # (A) 0.4 k/uL (1.0-4.8); Lymphocytes % (A) 3 %; MCH 32.1 pg (25.0-35.0); MCHC 31.9 g/dL (31.0-37.0); MCV 100.4 fL (80.0-100.0); Mean Platelet Volume 8.8; Monocytes # (A) 0.4 k/uL (0-1.0); Monocytes % (A) 3 %; Neutrophils # (A) 13.4 k/uL (1.3-7.7); Neutrophils % (A) 94 %; Platelet Count 193 k/uL (150-450); RDW 12.7 % (11.5-15.5); WBC 14.2 k/uL (3.8-10.6)
[2022-11-30 02:46] LABS: African American GFR (CKD) >90 (>60 ml/min/1.73 sqM); Anion Gap 8 mmol/L; Blood Urea Nitrogen 23 mg/dL (9-20); Calcium 7.8 mg/dL (8.4-10.2); Carbon Dioxide 25 mmol/L (22-30); Chloride 113 mmol/L (98-107); Glucose 100 mg/dL (74-99); Magnesium 2.1 mg/dL (1.6-2.3); Non-African American GFR(CKD) >90 (>60 ml/min/1.73 sqM); Potassium 3.6 mmol/L (3.5-5.1); Sodium 146 mmol/L (137-145)
[2022-11-30] MEDS: POTASSIUM CHLORIDE 10 MEQ in WATER FOR INJECTION 1 100ML.BAG IVPB SCH ×2 (04:11→05:54)
[2022-11-30 06:10] LABS: Glucose,Whole Blood 83 mg/dL (70-110)
[2022-11-30] MEDS: LEVOTHYROXINE 50 MCG TAB PO SCH (06:26)
[2022-11-30] MEDS: ENOXAPARIN 40 MG/0.4 ML SYRINGE SQ SCH (08:16)
[2022-11-30] MEDS: AMPICILLIN-SULBACTAM 3 GM in SODIUM CHLORIDE 0.9% 100 ML IVPB SCH ×2 (08:17→16:05)
[2022-11-30] MEDS: DEXAMETHASONE SOD PHOSPHATE 10 MG/ML 1 ML VIAL IVP SCH (08:17)
--- NOTE | 2022-11-30 09:15 | P.PN ---
Subjective Progress Note Date: 11/30/22 I am seeing this patient in new consultation today 11/28/2022 is found to be in some respiratory distress and hypoxic at the [facility] where he resides. Patient is a 77-year-old male with past medical history significant for COPD, hypertension, hyperlipidemia, Parkinson's disease, and schizophrenia. The patient has been having some progressively worsening dyspnea over the past 3 days. The patient reportedly did test positive for COVID-19 at the outside facility earlier yesterday. He resides at [facility]. The patient's respiratory status did worsen yesterday afternoon. EMS was called. The patient was placed on the CPAP, and the patient did vomit multiple times. There was concern for possible aspiration. On arrival to the emergency department yesterday afternoon, the patient was transitioned to a 15 L nonrebreather. NG tube was inserted for gastric decompression. Chest x-ray did not show any acute infiltrates or evidence of pneumonia. The NG tube was at the level of the GE junction and recommended advancement approximately 4 cm. The patient is currently lying in bed, on a 10 L nonrebreather, in no acute distress. He is actually oxygenating at 99%, and could be transition to nasal cannula. He does have a very congested nonproductive cough. Cough is weak, and there appears to be a lot of upper airway secretions. Abdomen is soft and nontender, and does not appear acute. NG tube is to LIS with minimal output. He is a poor historian. He is currently afebrile. He was started on empiric Unasyn for possible aspiration. He was also given a dose of Decadron in the emergency room. CBC on arrival was unremarkable. BMP shows sodium 138, potassium 3.7, chloride 97, serum bicarb 33, BUN 20, creatinine 0.97, glucose 144. Normal saline is infusing at 100 ML's per hour. Patient did test positive for COVID-19. Procalcitonin is minimally elevated at 0.12. CRP 4.3. Vital signs are stable at this time. Today's evaluation of 11/29/2022 the patient remains on a BiPAP. I transfer this patient to the intensive care unit yesterday. He was having continued labored breathing and he was decompensating even while being on a BiPAP. I'm over the to the intensive care. Initially, I was considering to intubate the patient. Subsequently, he stabilized and I kept him on BiPAP overnight and the BiPAP is running at rashes of 12 was 6 with a FiO2 of 60%. Chest x-ray from today is still showing a left perihilar pulmonary infiltrate which is similar and probably minimally improved compared to yesterday. The patient is diagnosed having Covid 19 infection and the patient remains on Decadron. The patient also had an aspiration event requiring broad-spectrum antibiotics and the patient is currently on IV Unasyn. Subsequent blood cultures showed gram-positive cocci and vancomycin was also added pending further cultures. On today's evaluation, he is hemodynamically stable. He is on IV fluids running at 100 mL an hour of normal saline. His blood gas is still pending from today. His illness, that 14.2 with a hemoglobin of 0.8 and a platelet count of 177. Sodium is at 142, serum bicarb is 29 with a BUN of 21 and a creatinine of 0.7. He is lethargic yet arousable. He doesn't communicate effectively. The patient has underlying chronic cognitive impairment and psychiatric disability. He does have a public guardian was given informed on his situation. He has been On a full CODE STATUS based on a court order. On 11/30/2022, the patient is comfortable in his breathing and is less tachypneic and he is doing some communication. His profoundly weak. He has a cough. He is on a BiPAP at a pressure of 12/6 cm of water. We are still awaiting his morning chest x-ray. He remains on IV Unasyn. He remains on vancomycin. The blood culture was growing gram-positive cocci and this is probably a contaminant. Awaiting final cultures. Lites echoes down to 14.2 with a hemoglobin of 9.9. Sodium is at 146, BUN is at 23 with a creatinine of 0.7. The patient remains on normal saline at rate of 100 mL an hour. Urine operas adequate. Overnight, he became slightly hypotensive and I recommended norepinephrine and he took it briefly. Currently is off the norepinephrine infusion. He remains on Decadron. He remains nothing by mouth for now. No other significant events overnight. Overall, he seems to be more stable, less tachypneic and short of breath compared to 24-48 hours. Objective - Vital Signs Vital signs: Vital Signs Temp 99.3 F 11/30/22 09:00 Pulse 81 11/30/22 09:00 Resp 35 H 11/30/22 09:00 BP 102/44 11/30/22 09:00 Pulse Ox 99 11/30/22 09:00 FiO2 40 11/30/22 08:00 Intake & Output 11/29/22 11/30/22 11/30/22 18:59 06:59 18:59 Intake Total 1350 1697.059 600 Output Total 313 518 130 Balance 1037 1179.059 470 Weight 64.5 kg 67.9 kg Intake: IV 1000 1200 300 Sodium Chloride 0.9% 1, 1000 1200 300 000 ml @ 100 mls/hr IV . Q10H DANUTA Rx#:[id number] Intake, IV Titration 350 497.059 300 Amount Ampicillin-Sulbactam 3 gm 100 100 100 In Sodium Chloride 0.9% 100 ml @ 200 mls/hr IVPB Q8HR DANUTA Rx#:[id number] Norepinephrine 4 mg In 47.059 Sodium Chloride 0.9% 250 ml @ 0.03 MCG/KG/MIN 7. 372 mls/hr IV .Q24H [facility]ANUTA Rx#:[id number] Potassium Chloride 10 meq 200 In Water For Injection 1 100ml.bag @ 100 mls/hr IVPB Q1H DANUTA Rx#: [id number] Potassium Chloride 20 meq 100 In Water For Injection 1 100ml.bag @ 50 mls/hr IVPB Q2H [facility]ANUTA Rx#: [id number] Vancomycin 1,250 mg In 250 250 Sodium Chloride 0.9% 250 ml @ 125 mls/hr IVPB Q12H DANUTA Rx#:[id number] Output: Urine 313 518 130 Other: Voiding Method Indwelling Catheter Indwelling Catheter ABP, PAP, CO, CI - Last Documented Arterial Blood Pressure 104/46 - Exam GENERAL EXAM: Alert, 77-year-old white male , fairly comfortable on BiPAP and the patient is tolerating the BiPAP without any major difficulties. HEAD: Normocephalic and atraumatic EYES: Normal reaction of pupils, equal size. NOSE: Clear with pink turbinates. THROAT: No erythema or exudates. NECK: No masses, no JVD. CHEST: No chest wall deformity. LUNGS: Equal air entry with few bibasilar crackles. no wheeze, rhonchi or dullness. There is a nonproductive congested cough. Weak cough. CVS: S1 and S2 normal with no audible murmur, regular rhythm. No extra heart sounds ABDOMEN: No hepatosplenomegaly, active bowel sounds, no guarding or rigidity. there is a NG tube through the right nare to LIS. Very minimal output. SPINE: No scoliosis or deformity SKIN: No rashes. There is a left lateral foot wound. CENTRAL NERVOUS SYSTEM: No focal deficits, tone is normal in all 4 extremities. He is altered and disoriented to place and time. EXTREMITIES: There is no peripheral edema or cyanosis. there is no clubbing in bilateral toenail onychomycosis. Peripheral pulses are intact. - Labs CBC & Chem 7: 11/30/22 02:15 11/30/22 02:15 Labs: Abnormal Lab Results - Last 24 Hours (Table) 11/29/22 11/30/22 11/30/22 Range/Units 10:31 02:15 02:15 WBC 14.2 H (3.8-10.6) k/uL RBC 3.10 L (4.30-5.90) m/uL Hgb 9.9 L (13.0-17.5) gm/dL Hct 31.1 L (39.0-53.0) % MCV 100.4 H (80.0-100.0) fL Neutrophils # 13.4 H (1.3-7.7) k/uL Lymphocytes # 0.4 L (1.0-4.8) k/uL ABG pCO2 51 H (35-45) mmHg ABG pO2 75 L (83-108) mmHg ABG HCO3 29 H (21-25) mmol/L ABG Total CO2 31 H (19-24) mmol/L Sodium 146 H (137-145) mmol/L Chloride 113 H (98-107) mmol/L BUN 23 H (9-20) mg/dL Glucose 100 H (74-99) mg/dL Calcium 7.8 L (8.4-10.2) mg/dL Assessment and Plan Assessment: Acute hypoxemic respiratory failure secondary to COVID-19 infection and possible aspiration. Patient is on BiPAP at a pressure of 12/6 with an FiO2 of 40%. Oxygen patient said stable for now. Awaiting morning chest x-ray. Remains on Unasyn and vancomycin. Less tachypneic. Minute ventilations significantly lower and improved on today's evaluation with a pulse ox of 99% Acute Covid 19 infection, currently on Decadron Acute aspiration with left perihilar pulmonary infiltrate/pneumonia Chronic obstructive pulmonary disease, appears stable Essential hypertension Hyperlipidemia Parkinson's disease onychomycosis Developmental delay/cognitive impairment intermediate resident Plan: Discontinue the BiPAP and was this patient and nasal cannula Continue IV Unasyn and vancomycin Aspiration precautions Swallow evaluation Continue IV Unasyn Awaiting final culture with gram-positive in the blood and the patient is covered with vancomycin Aspiration precautions IV fluids normal sed rate of 100 mL an hour No need for pressors Lovenox for DVT prophylaxis Full CODE STATUS Long-term prognosis poor based above-mentioned comorbidities. We'll continue to follow. Critical care evaluation that was done in more than 30 minutes.
[2022-11-30] MEDS: ALBUTEROL HFA INHALER INHALATION SCH ×4 (09:30→20:34)
[2022-11-30] MEDS: TIOTROPIUM 2.5 MCG INHALER INHALATION SCH (09:31)
--- NOTE | 2022-11-30 10:07 | XR ---
EXAMINATION TYPE: XR chest 1V portable DATE OF EXAM: 11/30/2022 9:28 AM COMPARISON: Chest radiographs from 11/29/2022 TECHNIQUE: XR chest 1V portable Portable AP radiograph of the chest. CLINICAL INDICATION:Male, 77 years old with history of covid; FINDINGS: Lungs/Pleura: No pleural effusion or pneumothorax. Similar patchy airspace opacities within the left mid and lower lung. Hyperinflation. Pulmonary vascularity: Unremarkable. Heart/mediastinum: Cardiomediastinal silhouette is unremarkable. Musculoskeletal: No acute osseous pathology. Bilateral shoulder arthropathy. Degenerative changes of the thoracic spine. Other findings: None Lines/Tubes: Left subclavian approach central venous catheter with tip at the superior cavoatrial junction is rede monstrated. IMPRESSION: COPD with similar airspace opacities within the left mid and lower lung.
[2022-11-30] MEDS: SENNOSIDES-DOCUSATE SODIUM 1 EACH TAB PO SCH ×2 (12:35→20:51)
[2022-11-30] MEDS: ASCORBIC ACID 500 MG TAB PO SCH (12:35)
[2022-11-30] MEDS: ZINC SULFATE 220 MG CAP PO SCH (12:35)
[2022-11-30] MEDS: POTASSIUM CHLORIDE ER 10 MEQ TAB.ER.PRT PO SCH (12:35)
[2022-11-30 13:10] LABS: Glucose,Whole Blood 76 mg/dL (70-110)
[2022-11-30] MEDS: DIVALPROEX 500 MG TABLET.DR PO SCH ×2 (13:40→20:48)
--- NOTE | 2022-11-30 16:17 | P.PN ---
Subjective Progress Note Date: 11/30/22 found to be in some respiratory distress and hypoxic at the [facility] where he resides. Patient is a 77-year-old male with past medical history significant for COPD, hypertension, hyperlipidemia, Parkinson's disease, and schizophrenia. The patient has been having some progressively worsening dyspnea over the past 3 days. The patient reportedly did test positive for COVID-19 at the outside facility earlier yesterday. He resides at [facility]. The patient's respiratory status did worsen yesterday afternoon. EMS was called. The patient was placed on the CPAP, and the patient did vomit multiple times. There was concern for possible aspiration. On arrival to the emergency department yesterday afternoon, the patient was transitioned to a 15 L nonrebreather. NG tube was inserted for gastric decompression. Chest x-ray did not show any acute infiltrates or evidence of pneumonia. The NG tube was at the level of the GE junction and recommended advancement approximately 4 cm. The patient is currently lying in bed, on a 10 L nonrebreather, in no acute distress. He is actually oxygenating at 99%, and could be transition to nasal cannula. He does have a very congested nonproductive cough. Cough is weak, and there appears to be a lot of upper airway secretions. Abdomen is soft and nontender, and does not appear acute. NG tube is to LIS with minimal output. He is a poor historian. He is currently afebrile. He was started on empiric Unasyn for possible aspiration. He was also given a dose of Decadron in the emergency room. CBC on arrival was unremarkable. BMP shows sodium 138, potassium 3.7, chloride 97, serum bicarb 33, BUN 20, creatinine 0.97, glucose 144. Normal saline is infusing at 100 ML's per hour. Patient did test positive for COVID- 19. Procalcitonin is minimally elevated at 0.12. CRP 4.3. Vital signs are stable at this time. Objective - Vital Signs Vital signs: Vital Signs Temp 99.3 F 11/30/22 09:00 Pulse 73 11/30/22 11:00 Resp 18 11/30/22 11:00 BP 102/44 11/30/22 10:00 Pulse Ox 99 11/30/22 11:00 FiO2 40 11/30/22 09:31 Intake & Output 11/29/22 11/30/22 11/30/22 18:59 06:59 18:59 Intake Total 1350 1697.059 800 Output Total 313 518 230 Balance 1037 1179.059 570 Weight 64.5 kg 67.9 kg Intake: IV 1000 1200 500 Sodium Chloride 0.9% 1, 1000 1200 500 000 ml @ 100 mls/hr IV . Q10H [facility] Rx#:[id number] Intake, IV Titration 350 497.059 300 Amount Ampicillin-Sulbactam 3 gm 100 100 100 In Sodium Chloride 0.9% 100 ml @ 200 mls/hr IVPB Q8HR [facility] Rx#:[id number] Norepinephrine 4 mg In 47.059 Sodium Chloride 0.9% 250 ml @ 0.03 MCG/KG/MIN 7. 372 mls/hr IV .Q24H [facility] Rx#:[id number] Potassium Chloride 10 meq 200 In Water For Injection 1 100ml.bag @ 100 mls/hr IVPB Q1H [facility]AN[facility]A Rx#: [id number] Potassium Chloride 20 meq 100 In Water For Injection 1 100ml.bag @ 50 mls/hr IVPB Q2H [facility]AN[facility]A Rx#: [id number] Vancomycin 1,250 mg In 250 250 Sodium Chloride 0.9% 250 ml @ 125 mls/hr IVPB Q12H [facility]ANUTA Rx#:[id number] Output: Urine 313 518 230 Other: Voiding Method Indwelling Catheter Indwelling Catheter Indwelling Catheter ABP, PAP, CO, CI - Last Documented Arterial Blood Pressure 106/44 - Exam GENERAL EXAM: Alert, 77-year-old white male , fairly comfortable on BiPAP and the patient is tolerating the BiPAP without any major difficulties. HEAD: Normocephalic and atraumatic THROAT: No erythema or exudates. NECK: No masses, no JVD. CHEST: No chest wall deformity. LUNGS: Equal air entry with few bibasilar crackles. no wheeze, rhonchi or dullness. There is a nonproductive congested cough. Weak cough. CVS: S1 and S2 normal with no audible murmur, regular rhythm. No extra heart sounds ABDOMEN: No hepatosplenomegaly, active bowel sounds, no guarding or rigidity. there is a NG tube through the right nare to LIS. Very minimal output. SKIN: No rashes. There is a left lateral foot wound. CENTRAL NERVOUS SYSTEM: No focal deficits, tone is normal in all 4 extremities. He is altered and disoriented to place and time. EXTREMITIES: There is no peripheral edema or cyanosis. there is no clubbing in bilateral toenail onychomycosis. Peripheral pulses are intact. - Labs CBC & Chem 7: 11/30/22 02:15 11/30/22 02:15 Labs: Abnormal Lab Results - Last 24 Hours (Table) 11/30/22 11/30/22 Range/Units 02:15 02:15 WBC 14.2 H (3.8-10.6) k/uL RBC 3.10 L (4.30-5.90) m/uL Hgb 9.9 L (13.0-17.5) gm/dL Hct 31.1 L (39.0-53.0) % MCV 100.4 H (80.0-100.0) fL Neutrophils # 13.4 H (1.3-7.7) k/uL Lymphocytes # 0.4 L (1.0-4.8) k/uL Sodium 146 H (137-145) mmol/L Chloride 113 H (98-107) mmol/L BUN 23 H (9-20) mg/dL Glucose 100 H (74-99) mg/dL Calcium 7.8 L (8.4-10.2) mg/dL Assessment and Plan Assessment: -- Acute hypoxemic respiratory failure secondary to COVID-19 infection and possible aspiration. Patient is on BiPAP at a pressure of 12/6 with an FiO2 of 40%. Oxygen patient said stable for now. Awaiting morning chest x-ray. Remains on Unasyn and vancomycin. Less tachypneic. Minute ventilations significantly lower and improved on today's evaluation with a pulse ox of 99% Acute Covid 19 infection, currently on Decadron Acute aspiration with left perihilar pulmonary infiltrate/pneumonia Chronic obstructive pulmonary disease, appears stable Essential hypertension Hyperlipidemia Parkinson's disease Developmental delay/cognitive impairment Discontinue the BiPAP and was this patient and nasal cannula Continue IV Unasyn and vancomycin Aspiration precautions Swallow evaluation Continue IV Unasyn Awaiting final culture with gram-positive in the blood and the patient is covered with vancomycin Aspiration precautions IV fluids normal sed rate of 100 mL an hour No need for pressors Lovenox for DVT prophylaxis Full CODE STATUS Long-term prognosis poor based above-mentioned comorbidities. We'll continue to follow.
[2022-11-30 17:13] LABS: Glucose,Whole Blood 187 mg/dL (70-110)
[2022-11-30 20:48] LABS: Glucose,Whole Blood 144 mg/dL (70-110)
[2022-11-30] MEDS: ATORVASTATIN 80 MG TAB PO SCH (20:48)
[2022-11-30] MEDS: allopurinoL 100 MG TAB PO SCH (20:51)
[2022-11-30] MEDS: atenoloL 25 MG TAB PO SCH ×2 (20:51→23:36)
[2022-11-30] MEDS: CHLORTHALIDONE 25 MG TAB PO SCH (20:51)
[2022-12-01] MEDS: AMPICILLIN-SULBACTAM 3 GM in SODIUM CHLORIDE 0.9% 100 ML IVPB SCH ×4 (00:28→23:44)
[2022-12-01] MEDS: SODIUM CHLORIDE 0.9% 1,000 ML IV SCH ×4 (00:29→23:44)
[2022-12-01] MEDS ORDERED: VANCOMYCIN TROUGH DUE 1 EACH MISC MISCELLANE ONE (01:00)
[2022-12-01 01:13] LABS: African American GFR (CKD) >90 (>60 ml/min/1.73 sqM); Non-African American GFR(CKD) >90 (>60 ml/min/1.73 sqM)
[2022-12-01] MEDS: NOREPINEPHRINE 4 MG in SODIUM CHLORIDE 0.9% 250 ML IV SCH (01:19)
[2022-12-01] MEDS: VANCOMYCIN 1,250 MG in SODIUM CHLORIDE 0.9% 250 ML IVPB SCH (01:53)
[2022-12-01 03:20] LABS: Basophils % (A) 0 %; Eosinophils % (A) 0 %; HCT 25.7 % (39.0-53.0); Hypochromasia Slight; Lymphocytes # (A) 0.5 k/uL (1.0-4.8); Lymphocytes % (A) 5 %; MCH 31.9 pg (25.0-35.0); MCHC 32.2 g/dL (31.0-37.0); MCV 98.9 fL (80.0-100.0); Mean Platelet Volume 9.3; Monocytes # (A) 0.3 k/uL (0-1.0); Monocytes % (A) 3 %; Neutrophils # (A) 8.8 k/uL (1.3-7.7); Neutrophils % (A) 91 %; Platelet Count 205 k/uL (150-450); RBC 2.59 m/uL (4.30-5.90); RDW 13.1 % (11.5-15.5); WBC 9.7 k/uL (3.8-10.6)
[2022-12-01 03:27] LABS: HGB 8.3 gm/dL (13.0-17.5)
[2022-12-01 03:29] LABS: African American GFR (CKD) >90 (>60 ml/min/1.73 sqM); Anion Gap 3 mmol/L; Blood Urea Nitrogen 24 mg/dL (9-20); Calcium 7.6 mg/dL (8.4-10.2); Carbon Dioxide 27 mmol/L (22-30); Chloride 115 mmol/L (98-107); Glucose 112 mg/dL (74-99); Non-African American GFR(CKD) 89 (>60 ml/min/1.73 sqM); Potassium 3.1 mmol/L (3.5-5.1); Sodium 145 mmol/L (137-145)
[2022-12-01] MEDS: LEVOTHYROXINE 50 MCG TAB PO SCH (05:29)
[2022-12-01 06:14] LABS: ABG HCO3 28 mmol/L (21-25); ABG Oxygen Saturation 97.8 % (94-97); ABG PCO2 43 mmHg (35-45); ABG PH 7.42 (7.35-7.45); ABG PO2 93 mmHg (83-108); ABG TCO2 29 mmol/L (19-24); Allen Test Performed? Yes
[2022-12-01] MEDS: POTASSIUM BICARBONATE/CIT AC 20 MEQ TABLET.EFF NG-TUBE SCH ×2 (06:19→08:29)
[2022-12-01] MEDS: ASCORBIC ACID 500 MG TAB PO SCH (08:28)
[2022-12-01] MEDS: SENNOSIDES-DOCUSATE SODIUM 1 EACH TAB PO SCH ×2 (08:29→20:16)
[2022-12-01] MEDS: DIVALPROEX 500 MG TABLET.DR PO SCH ×2 (08:29→20:15)
[2022-12-01] MEDS: ENOXAPARIN 40 MG/0.4 ML SYRINGE SQ SCH (08:30)
[2022-12-01] MEDS: DEXAMETHASONE SOD PHOSPHATE 10 MG/ML 1 ML VIAL IVP SCH (08:30)
[2022-12-01] MEDS: POTASSIUM CHLORIDE ER 10 MEQ TAB.ER.PRT PO SCH (08:30)
[2022-12-01] MEDS: ZINC SULFATE 220 MG CAP PO SCH (08:30)
--- NOTE | 2022-12-01 09:15 | P.PN ---
Subjective Progress Note Date: 12/01/22 I am seeing this patient in new consultation today 11/28/2022 is found to be in some respiratory distress and hypoxic at the [facility] where he resides. Patient is a 77-year-old male with past medical history significant for COPD, hypertension, hyperlipidemia, Parkinson's disease, and schizophrenia. The patient has been having some progressively worsening dyspnea over the past 3 days. The patient reportedly did test positive for COVID-19 at the outside facility earlier yesterday. He resides at [facility]. The patient's respiratory status did worsen yesterday afternoon. EMS was called. The patient was placed on the CPAP, and the patient did vomit multiple times. There was concern for possible aspiration. On arrival to the emergency department yesterday afternoon, the patient was transitioned to a 15 L nonrebreather. NG tube was inserted for gastric decompression. Chest x-ray did not show any acute infiltrates or evidence of pneumonia. The NG tube was at the level of the GE junction and recommended advancement approximately 4 cm. The patient is currently lying in bed, on a 10 L nonrebreather, in no acute distress. He is actually oxygenating at 99%, and could be transition to nasal cannula. He does have a very congested nonproductive cough. Cough is weak, and there appears to be a lot of upper airway secretions. Abdomen is soft and nontender, and does not appear acute. NG tube is to LIS with minimal output. He is a poor historian. He is currently afebrile. He was started on empiric Unasyn for possible aspiration. He was also given a dose of Decadron in the emergency room. CBC on arrival was unremarkable. BMP shows sodium 138, potassium 3.7, chloride 97, serum bicarb 33, BUN 20, creatinine 0.97, glucose 144. Normal saline is infusing at 100 ML's per hour. Patient did test positive for COVID-19. Procalcitonin is minimally elevated at 0.12. CRP 4.3. Vital signs are stable at this time. Today's evaluation of 11/29/2022 the patient remains on a BiPAP. I transfer this patient to the intensive care unit yesterday. He was having continued labored breathing and he was decompensating even while being on a BiPAP. I'm over the to the intensive care. Initially, I was considering to intubate the patient. Subsequently, he stabilized and I kept him on BiPAP overnight and the BiPAP is running at rashes of 12 was 6 with a FiO2 of 60%. Chest x-ray from today is still showing a left perihilar pulmonary infiltrate which is similar and probably minimally improved compared to yesterday. The patient is diagnosed having Covid 19 infection and the patient remains on Decadron. The patient also had an aspiration event requiring broad-spectrum antibiotics and the patient is currently on IV Unasyn. Subsequent blood cultures showed gram-positive cocci and vancomycin was also added pending further cultures. On today's evaluation, he is hemodynamically stable. He is on IV fluids running at 100 mL an hour of normal saline. His blood gas is still pending from today. His illness, that 14.2 with a hemoglobin of 0.8 and a platelet count of 177. Sodium is at 142, serum bicarb is 29 with a BUN of 21 and a creatinine of 0.7. He is lethargic yet arousable. He doesn't communicate effectively. The patient has underlying chronic cognitive impairment and psychiatric disability. He does have a public guardian was given informed on his situation. He has been On a full CODE STATUS based on a court order. On 11/30/2022, the patient is comfortable in his breathing and is less tachypneic and he is doing some communication. His profoundly weak. He has a cough. He is on a BiPAP at a pressure of 12/6 cm of water. We are still awaiting his morning chest x-ray. He remains on IV Unasyn. He remains on vancomycin. The blood culture was growing gram-positive cocci and this is probably a contaminant. Awaiting final cultures. Lites echoes down to 14.2 with a hemoglobin of 9.9. Sodium is at 146, BUN is at 23 with a creatinine of 0.7. The patient remains on normal saline at rate of 100 mL an hour. Urine operas adequate. Overnight, he became slightly hypotensive and I recommended norepinephrine and he took it briefly. Currently is off the norepinephrine infusion. He remains on Decadron. He remains nothing by mouth for now. No other significant events overnight. Overall, he seems to be more stable, less tachypneic and short of breath compared to 24-48 hours. 12/01/2022, the patient is off the BiPAP still. He was taken off the BiPAP yesterday and currently is on 3 L of oxygen by nasal cannula. The chest x-ray still showing perihilar bilateral pulmonary infiltrates. There is also development of a small left-sided pleural effusion on today's chest x-ray. Noted the patient is a case of positive Covid 19 infection with superinfection with bacteria as the patient had a large volume aspiration. Currently, his cough is weak yet adequate. His blood gas from today shows a pH of 7.42 with a pCO2 of 43 and a pO2 of 93 and this was on FiO2 of 36%. BUN is at 24 with a creatinine of 0.7. The white cell cause of 9.7 with a hemoglobin of 8.3. The patient remains on Iv Unasyn and vancomycin. IV fluids are in the form of normal saline at the rate of 100 mL an hour. We will was discontinued this morning. He is maintaining his own blood pressure at this point in time. No other significant events overnight. The patient is, comfortable and well rested at this point. Objective - Vital Signs Vital signs: Vital Signs Temp 97.4 F L 12/01/22 04:00 Pulse 71 12/01/22 07:00 Resp 13 12/01/22 07:00 BP 100/44 12/01/22 05:00 Pulse Ox 98 12/01/22 07:00 FiO2 40 11/30/22 09:31 Intake & Output 11/30/22 12/01/22 12/01/22 18:59 06:59 18:59 Intake Total 1850 1308.192 7.782 Output Total 536 550 Balance 1314 758.192 7.782 Weight 67.9 kg 64.5 kg Intake: IV 1200 1200 Sodium Chloride 0.9% 1, 1200 1200 000 ml @ 100 mls/hr IV . Q10H DANUTA Rx#:[id number] Intake, IV Titration 650 108.192 7.782 Amount Ampicillin-Sulbactam 3 gm 200 100 In Sodium Chloride 0.9% 100 ml @ 200 mls/hr IVPB Q8HR DANUTA Rx#:[id number] Norepinephrine 4 mg In 8.192 7.782 Sodium Chloride 0.9% 250 ml @ 0.03 MCG/KG/MIN 7. 372 mls/hr IV .Q24H DANUTA Rx#:[id number] Potassium Chloride 10 meq 200 In Water For Injection 1 100ml.bag @ 100 mls/hr IVPB Q1H DANUTA Rx#: [id number] Vancomycin 1,250 mg In 250 Sodium Chloride 0.9% 250 ml @ 125 mls/hr IVPB Q12H DANUTA Rx#:[id number] Output: Urine 536 550 Other: Voiding Method Indwelling Catheter Indwelling Catheter # Bowel Movements 1 ABP, PAP, CO, CI - Last Documented Arterial Blood Pressure 126/51 - Exam GENERAL EXAM: Alert, 77-year-old white male , fairly comfortable on 3 L of oxygen nasal cannula HEAD: Normocephalic and atraumatic EYES: Normal reaction of pupils, equal size. NOSE: Clear with pink turbinates. THROAT: No erythema or exudates. NECK: No masses, no JVD. CHEST: No chest wall deformity. LUNGS: Equal air entry with few bibasilar crackles. no wheeze, rhonchi or dullness. There is a nonproductive congested cough. Weak cough. CVS: S1 and S2 normal with no audible murmur, regular rhythm. No extra heart sounds ABDOMEN: No hepatosplenomegaly, active bowel sounds, no guarding or rigidity. there is a NG tube through the right nare to LIS. Very minimal output. SPINE: No scoliosis or deformity SKIN: No rashes. There is a left lateral foot wound. CENTRAL NERVOUS SYSTEM: No focal deficits, tone is normal in all 4 extremities. He is altered and disoriented to place and time. EXTREMITIES: There is no peripheral edema or cyanosis. there is no clubbing in bilateral toenail onychomycosis. Peripheral pulses are intact. - Labs CBC & Chem 7: 12/01/22 03:10 12/01/22 03:10 Labs: Abnormal Lab Results - Last 24 Hours (Table) 11/30/22 11/30/22 12/01/22 Range/Units 17:12 20:47 03:10 RBC 2.59 L (4.30-5.90) m/uL Hgb 8.3 L D (13.0-17.5) gm/dL Hct 25.7 L (39.0-53.0) % Neutrophils # 8.8 H (1.3-7.7) k/uL Lymphocytes # 0.5 L (1.0-4.8) k/uL ABG HCO3 (21-25) mmol/L ABG Total CO2 (19-24) mmol/L ABG O2 Saturation (94-97) % Potassium (3.5-5.1) mmol/L Chloride (98-107) mmol/L BUN (9-20) mg/dL Glucose (74-99) mg/dL POC Glucose (mg/dL) 187 H 144 H (70-110) mg/dL Calcium (8.4-10.2) mg/dL 12/01/22 12/01/22 Range/Units 03:10 06:03 RBC (4.30-5.90) m/uL Hgb (13.0-17.5) gm/dL Hct (39.0-53.0) % Neutrophils # (1.3-7.7) k/uL Lymphocytes # (1.0-4.8) k/uL ABG HCO3 28 H (21-25) mmol/L ABG Total CO2 29 H (19-24) mmol/L ABG O2 Saturation 97.8 H (94-97) % Potassium 3.1 L (3.5-5.1) mmol/L Chloride 115 H (98-107) mmol/L BUN 24 H (9-20) mg/dL Glucose 112 H (74-99) mg/dL POC Glucose (mg/dL) (70-110) mg/dL Calcium 7.6 L (8.4-10.2) mg/dL Microbiology - Last 24 Hours (Table) 11/27/22 14:16 Blood Culture Gram Stain - Final Blood Blood Culture - Final Coagulase Negative Staph Coagulase Negative Staph#2 Assessment and Plan Assessment: Acute hypoxemic respiratory failure secondary to COVID-19 infection and possible aspiration. Patient is on BiPAP at a pressure of 12/6 with an FiO2 of 40%. Oxygen patient said stable for now. Awaiting morning chest x-ray. Remains on Unasyn and vancomycin. The patient was taken off the BiPAP yesterday and the patient is currently on 3 L. Chest x-ray shows perihilar bilateral pulmonary infiltrates and the patient remains on 3 L O2 nasal cannula Episodic hypotension requiring norepinephrine and the patient remains on normal saline at rate of 100 mL an hour Acute Covid 19 infection, currently on Decadron Acute aspiration with left perihilar pulmonary infiltrate/pneumonia Chronic obstructive pulmonary disease, appears stable Essential hypertension Hyperlipidemia Parkinson's disease onychomycosis Developmental delay/cognitive impairment intermediate resident Plan: Keep oxygen at 3 L KVO IV fluids Give Lasix 40 mg IV push Continue IV Unasyn Aspiration precautions Swallow evaluation past and the patient is swallowing Discontinue vancomycin as the patient's blood culture was positive for coagulase-negative staph Aspiration precautions No need for pressors and titrate if needed Lovenox for DVT prophylaxis Full CODE STATUS Long-term prognosis poor based above-mentioned comorbidities. We'll continue to follow.
[2022-12-01] MEDS ORDERED: FUROSEMIDE 10 MG/ML 4 ML VIAL IV STA (09:17)
[2022-12-01] MEDS: ALBUTEROL HFA INHALER INHALATION SCH ×4 (09:26→20:51)
[2022-12-01] MEDS: TIOTROPIUM 2.5 MCG INHALER INHALATION SCH (09:27)
[2022-12-01 11:18] LABS: Glucose,Whole Blood 171 mg/dL (70-110)
[2022-12-01] MEDS: ATORVASTATIN 80 MG TAB PO SCH (20:15)
[2022-12-01] MEDS: allopurinoL 100 MG TAB PO SCH (20:15)
[2022-12-01] MEDS: CHLORTHALIDONE 25 MG TAB PO SCH (20:16)
--- NOTE | 2022-12-01 23:52 | XR ---
EXAMINATION TYPE: XR chest 1V portable DATE OF EXAM: 12/01/2022 COMPARISON: 11/30/2022 INDICATION: Covid TECHNIQUE: Single frontal view of the chest is obtained. FINDINGS: The heart size is normal. The pulmonary vasculature is normal. Diffuse increased lung markings are present can be compatible with atypical pneumonia. Findings are w orsening over the interval Port is present on the left with the tip in the superior vena cava right atrial junction IMPRESSION: 1. Worsening bilateral lung infiltrates. Correlate for atypical pneumonia.
[2022-12-02] MEDS: LEVOTHYROXINE 50 MCG TAB PO SCH (05:50)
[2022-12-02 06:08] LABS: African American GFR (CKD) >90 (>60 ml/min/1.73 sqM); Non-African American GFR(CKD) 88 (>60 ml/min/1.73 sqM)
[2022-12-02] MEDS: TIOTROPIUM 2.5 MCG INHALER INHALATION SCH (08:13)
[2022-12-02] MEDS: ALBUTEROL HFA INHALER INHALATION SCH ×4 (08:14→21:38)
[2022-12-02] MEDS: DIVALPROEX 500 MG TABLET.DR PO SCH ×2 (08:35→22:28)
[2022-12-02] MEDS: ZINC SULFATE 220 MG CAP PO SCH (08:35)
[2022-12-02] MEDS: SENNOSIDES-DOCUSATE SODIUM 1 EACH TAB PO SCH ×2 (08:35→22:18)
[2022-12-02] MEDS: POTASSIUM CHLORIDE ER 10 MEQ TAB.ER.PRT PO SCH (08:35)
[2022-12-02] MEDS: ASCORBIC ACID 500 MG TAB PO SCH (08:35)
[2022-12-02] MEDS: AMPICILLIN-SULBACTAM 3 GM in SODIUM CHLORIDE 0.9% 100 ML IVPB SCH ×2 (08:36→15:44)
[2022-12-02] MEDS: DEXAMETHASONE SOD PHOSPHATE 10 MG/ML 1 ML VIAL IVP SCH (08:36)
[2022-12-02] MEDS: ENOXAPARIN 40 MG/0.4 ML SYRINGE SQ SCH (08:36)
--- NOTE | 2022-12-02 11:40 | P.PN ---
Subjective Progress Note Date: 12/02/22 I am seeing this patient in new consultation today 11/28/2022 is found to be in some respiratory distress and hypoxic at the [facility] where he resides. Patient is a 77-year-old male with past medical history significant for COPD, hypertension, hyperlipidemia, Parkinson's disease, and schizophrenia. The patient has been having some progressively worsening dyspnea over the past 3 days. The patient reportedly did test positive for COVID-19 at the outside facility earlier yesterday. He resides at [facility]. The patient's respiratory status did worsen yesterday afternoon. EMS was called. The patient was placed on the CPAP, and the patient did vomit multiple times. There was concern for possible aspiration. On arrival to the emergency department yesterday afternoon, the patient was transitioned to a 15 L nonrebreather. NG tube was inserted for gastric decompression. Chest x-ray did not show any acute infiltrates or evidence of pneumonia. The NG tube was at the level of the GE junction and recommended advancement approximately 4 cm. The patient is currently lying in bed, on a 10 L nonrebreather, in no acute distress. He is actually oxygenating at 99%, and could be transition to nasal cannula. He does have a very congested nonproductive cough. Cough is weak, and there appears to be a lot of upper airway secretions. Abdomen is soft and nontender, and does not appear acute. NG tube is to LIS with minimal output. He is a poor historian. He is currently afebrile. He was started on empiric Unasyn for possible aspiration. He was also given a dose of Decadron in the emergency room. CBC on arrival was unremarkable. BMP shows sodium 138, potassium 3.7, chloride 97, serum bicarb 33, BUN 20, creatinine 0.97, glucose 144. Normal saline is infusing at 100 ML's per hour. Patient did test positive for COVID-19. Procalcitonin is minimally elevated at 0.12. CRP 4.3. Vital signs are stable at this time. Today's evaluation of 11/29/2022 the patient remains on a BiPAP. I transfer this patient to the intensive care unit yesterday. He was having continued labored breathing and he was decompensating even while being on a BiPAP. I'm over the to the intensive care. Initially, I was considering to intubate the patient. Subsequently, he stabilized and I kept him on BiPAP overnight and the BiPAP is running at rashes of 12 was 6 with a FiO2 of 60%. Chest x-ray from today is still showing a left perihilar pulmonary infiltrate which is similar and probably minimally improved compared to yesterday. The patient is diagnosed having Covid 19 infection and the patient remains on Decadron. The patient also had an aspiration event requiring broad-spectrum antibiotics and the patient is currently on IV Unasyn. Subsequent blood cultures showed gram-positive cocci and vancomycin was also added pending further cultures. On today's evaluation, he is hemodynamically stable. He is on IV fluids running at 100 mL an hour of normal saline. His blood gas is still pending from today. His illness, that 14.2 with a hemoglobin of 0.8 and a platelet count of 177. Sodium is at 142, serum bicarb is 29 with a BUN of 21 and a creatinine of 0.7. He is lethargic yet arousable. He doesn't communicate effectively. The patient has underlying chronic cognitive impairment and psychiatric disability. He does have a public guardian was given informed on his situation. He has been On a full CODE STATUS based on a court order. On 11/30/2022, the patient is comfortable in his breathing and is less tachypneic and he is doing some communication. His profoundly weak. He has a cough. He is on a BiPAP at a pressure of 12/6 cm of water. We are still awaiting his morning chest x-ray. He remains on IV Unasyn. He remains on vancomycin. The blood culture was growing gram-positive cocci and this is probably a contaminant. Awaiting final cultures. Lites echoes down to 14.2 with a hemoglobin of 9.9. Sodium is at 146, BUN is at 23 with a creatinine of 0.7. The patient remains on normal saline at rate of 100 mL an hour. Urine operas adequate. Overnight, he became slightly hypotensive and I recommended norepinephrine and he took it briefly. Currently is off the norepinephrine infusion. He remains on Decadron. He remains nothing by mouth for now. No other significant events overnight. Overall, he seems to be more stable, less tachypneic and short of breath compared to 24-48 hours. 12/01/2022, the patient is off the BiPAP still. He was taken off the BiPAP yesterday and currently is on 3 L of oxygen by nasal cannula. The chest x-ray still showing perihilar bilateral pulmonary infiltrates. There is also development of a small left-sided pleural effusion on today's chest x-ray. Noted the patient is a case of positive Covid 19 infection with superinfection with bacteria as the patient had a large volume aspiration. Currently, his cough is weak yet adequate. His blood gas from today shows a pH of 7.42 with a pCO2 of 43 and a pO2 of 93 and this was on FiO2 of 36%. BUN is at 24 with a creatinine of 0.7. The white cell cause of 9.7 with a hemoglobin of 8.3. The patient remains on Iv Unasyn and vancomycin. IV fluids are in the form of normal saline at the rate of 100 mL an hour. We will was discontinued this morning. He is maintaining his own blood pressure at this point in time. No other significant events overnight. The patient is, comfortable and well rested at this point. 12/02/2022, the patient has been transferred out of the intensive care unit and the patient is currently on a medical floor on 3 L of oxygen by nasal cannula. He remains on Decadron. No new complaints. He was also treated for an aspiration pneumonia and the patient remains on IV Unasyn. He is resting comfortably in bed. No signs of any respiratory distress. Limited congestive cough. IV fluids are at normal saline at rate of 20 mL an hour. He remains on Ventolin HFA. Remains on Lovenox 40 mg DVT prophylaxis. He does have significant cognitive impairment due to his underlying schizophrenia Parkinson's disease. No new labs are available from today. Labs from yesterday was noted. He is able to tolerate diet and he is taking oral intake Objective - Vital Signs Vital signs: Vital Signs Temp 97.9 F 12/02/22 07:53 Pulse 54 L 12/02/22 07:53 Resp 18 12/02/22 07:53 BP 101/55 12/02/22 07:53 Pulse Ox 97 12/02/22 08:14 FiO2 40 11/30/22 09:31 Intake & Output 12/01/22 12/02/22 12/02/22 18:59 06:59 18:59 Intake Total 557.782 200 Output Total 2315 425 Balance -1757.218 -225 Weight 64.5 kg Intake: IV 550 200 Ampicillin-Sulbactam 3 gm 200 100 In Sodium Chloride 0.9% 100 ml @ 200 mls/hr IVPB Q8HR [facility] Rx#:[id number] Sodium Chloride 0.9% 1, 200 000 ml @ 100 mls/hr IV . Q10H [facility]AN[facility]A Rx#:[id number] Sodium Chloride 0.9% 1, 150 100 000 ml @ 20 mls/hr IV . Q24H [facility]AN[facility]A Rx#:[id number] Intake, IV Titration 7.782 Amount Norepinephrine 4 mg In 7.782 Sodium Chloride 0.9% 250 ml @ 0.03 MCG/KG/MIN 7. 372 mls/hr IV .Q24H [facility]ANUTA Rx#:[id number] Output: Urine 2315 425 Other: Voiding Method Indwelling Catheter Indwelling Catheter # Bowel Movements 2 ABP, PAP, CO, CI - Last Documented Arterial Blood Pressure 110/43 - Exam GENERAL EXAM: Alert, 77-year-old white male , fairly comfortable on 3 L of oxygen nasal cannula HEAD: Normocephalic and atraumatic EYES: Normal reaction of pupils, equal size. NOSE: Clear with pink turbinates. THROAT: No erythema or exudates. NECK: No masses, no JVD. CHEST: No chest wall deformity. LUNGS: Equal air entry with few bibasilar crackles. no wheeze, rhonchi or dullness. There is a nonproductive congested cough. Weak cough. CVS: S1 and S2 normal with no audible murmur, regular rhythm. No extra heart sounds ABDOMEN: No hepatosplenomegaly, active bowel sounds, no guarding or rigidity. there is a NG tube through the right nare to LIS. Very minimal output. SPINE: No scoliosis or deformity SKIN: No rashes. There is a left lateral foot wound. CENTRAL NERVOUS SYSTEM: No focal deficits, tone is normal in all 4 extremities. He is altered and disoriented to place and time. EXTREMITIES: There is no peripheral edema or cyanosis. there is no clubbing in bilateral toenail onychomycosis. Peripheral pulses are intact. - Labs CBC & Chem 7: 12/01/22 03:10 12/02/22 05:38 Labs: Abnormal Lab Results - Last 24 Hours (Table) 12/01/22 Range/Units 11:16 POC Glucose (mg/dL) 171 H (70-110) mg/dL Assessment and Plan Assessment: Acute hypoxemic respiratory failure secondary to COVID-19 infection and possible aspiration. Patient is on BiPAP at a pressure of 12/6 with an FiO2 of 40%. Oxygen patient said stable for now. Awaiting morning chest x-ray. Remains on Unasyn and vancomycin. The patient was taken off the BiPAP yesterday and the patient is currently on 2 L. Chest x-ray shows perihilar bilateral pulmonary infiltrates and the patient remains on 2 L O2 nasal cannula. The patient's respiratory status remained stable. Episodic hypotension requiring norepinephrine and the patient remains on normal saline at rate of 20 mL's an hour and IV fluids have been As the Patient stabilizes blood pressure. Acute Covid 19 infection, currently on Decadron Acute aspiration with left perihilar pulmonary infiltrate/pneumonia Chronic obstructive pulmonary disease, appears stable Essential hypertension Hyperlipidemia Parkinson's disease onychomycosis Developmental delay/cognitive impairment [facility] resident Plan: Keep oxygen at 2L KVO IV fluids Continue IV Unasyn Aspiration precautions Swallow evaluation past and the patient is swallowing and the patient is tolerating his diet blood culture was positive for coagulase-negative staph, vancomycin is discontinued Aspiration precautions No need for pressors and titrate if needed Lovenox for DVT prophylaxis Full CODE STATUS Long-term prognosis poor based above-mentioned comorbidities. We'll continue to follow.
--- NOTE | 2022-12-02 18:58 | P.PN ---
Subjective Progress Note Date: 12/01/22 Patient was found to be in some respiratory distress and hypoxic at the [facility] where he resides. Patient is a 77-year-old male with past medical history significant for COPD, hypertension, hyperlipidemia, Parkinson's disease, and schizophrenia. The patient has been having some progressively worsening dyspnea over the past 3 days. The patient reportedly did test positive for COVID-19 at the outside facility earlier yesterday. He resides at [facility]. The patient's respiratory status did worsen yesterday afternoon. EMS was called. The patient was placed on the CPAP, and the patient did vomit multiple times. There was concern for possible aspiration. On arrival to the emergency departme yesterday afternoon, the patient was transitioned to a 15 L nonrebreather. NG tube was inserted for gastric decompression. Chest x-ray did not show any acute infiltrates or evidence of pneumonia. The NG tube was at the level of the GE junction and recommended advancement approximately 4 cm. The patient is currently lying in bed, on a 10 L nonrebreather, in no acute distress. He is actually oxygenating at 99%, and could be transition to nasal cannula. He does have a very congested nonproductive cough. Cough is weak, and there appears to be a lot of upper airway secretions. Abdomen is soft and nontender, and does not appear acute. NG tube is to LIS with minimal output. He is a poor historian. He is currently afebrile. He was started on empiric Unasyn for possible aspiration. He was also given a dose of Decadron in the emergency room. CBC on arrival was unremarkable. BMP shows sodium 138, potassium 3.7, chloride 97, serum bicarb 33, BUN 20, creatinine 0.97, glucose 144. Normal saline is infusing at 100 ML's per hour. Patient did test positive for COVID- 19. Procalcitonin is minimally elevated at 0.12. CRP 4.3. Vital signs are stable at this time. 12/01/2022 --patient is seen and evaluated at bedside in ICU; currently off the BiPAP . He was taken off the BiPAP yesterday and currently is on 3 L of oxygen by nasal cannula. The chest x-ray still showing perihilar bilateral pulmonary infiltrates. There is also development of a small left-sided pleural effusion on today's chest x- ray. Noted the patient is a case of positive Covid 19 infection with superinfection with bacteria as the patient had a large volume aspiration. Currently, his cough is weak yet adequate. --Blood gas from today shows a pH of 7.42 with a pCO2 of 43 and a pO2 of 93 and this was on FiO2 of 36%. BUN is at 24 with a creatinine of 0.7. The white cell cause of 9.7 with a hemoglobin of 8.3. -- The patient remains on IV Unasyn and vancomycin. IV fluids are in the form of normal saline at the rate of 100 mL an hour. Objective - Vital Signs Vital signs: Vital Signs Temp 97.7 F 12/01/22 11:00 Pulse 74 12/01/22 12:00 Resp 22 12/01/22 12:00 BP 104/50 12/01/22 12:00 Pulse Ox 99 12/01/22 12:00 FiO2 40 11/30/22 09:31 Intake & Output 11/30/22 12/01/22 12/01/22 18:59 06:59 18:59 Intake Total 1850 1308.192 367.782 Output Total 760 167 3811 Balance 1314 758.192 -772.218 Weight 67.9 kg 64.5 kg Intake: IV 1200 1200 360 Ampicillin-Sulbactam 3 gm 100 In Sodium Chloride 0.9% 100 ml @ 200 mls/hr IVPB Q8HR [facility] Rx#:[id number] Sodium Chloride 0.9% 1, 1200 1200 200 000 ml @ 100 mls/hr IV . Q10H [facility] Rx#:[id number] Sodium Chloride 0.9% 1, 60 000 ml @ 20 mls/hr IV . Q24H [facility] Rx#:[id number] Intake, IV Titration 650 108.192 7.782 Amount Ampicillin-Sulbactam 3 gm 200 100 In Sodium Chloride 0.9% 100 ml @ 200 mls/hr IVPB Q8HR [facility] Rx#:[id number] Norepinephrine 4 mg In 8.192 7.782 Sodium Chloride 0.9% 250 ml @ 0.03 MCG/KG/MIN 7. 372 mls/hr IV .Q24H [facility] Rx#:[id number] Potassium Chloride 10 meq 200 In Water For Injection 1 100ml.bag @ 100 mls/hr IVPB Q1H [facility] Rx#: [id number] Vancomycin 1,250 mg In 250 Sodium Chloride 0.9% 250 ml @ 125 mls/hr IVPB Q12H [facility] Rx#:[id number] Output: Urine 577 186 7705 Other: Voiding Method Indwelling Catheter Indwelling Catheter # Bowel Movements 1 ABP, PAP, CO, CI - Last Documented Arterial Blood Pressure 110/43 - Exam GENERAL EXAM: Alert, 77-year-old white male , fairly comfortable on BiPAP and the patient is tolerating the BiPAP without any major difficulties. HEAD: Normocephalic and atraumatic THROAT: No erythema or exudates. NECK: No masses, no JVD. CHEST: No chest wall deformity. LUNGS: Equal air entry with few bibasilar crackles. no wheeze, rhonchi or dullness. There is a nonproductive congested cough. Weak cough. CVS: S1 and S2 normal with no audible murmur, regular rhythm. No extra heart sounds ABDOMEN: No hepatosplenomegaly, active bowel sounds, no guarding or rigidity. there is a NG tube through the right nare to LIS. Very minimal output. SKIN: No rashes. There is a left lateral foot wound. CENTRAL NERVOUS SYSTEM: No focal deficits, tone is normal in all 4 extremities. He is altered and disoriented to place and time. EXTREMITIES: There is no peripheral edema or cyanosis. there is no clubbing in bilateral toenail onychomycosis. Peripheral pulses are intact. - Labs CBC & Chem 7: 12/01/22 03:10 12/02/22 05:38 Labs: Abnormal Lab Results - Last 24 Hours (Table) 11/30/22 11/30/22 12/01/22 Range/Units 17:12 20:47 03:10 RBC 2.59 L (4.30-5.90) m/uL Hgb 8.3 L D (13.0-17.5) gm/dL Hct 25.7 L (39.0-53.0) % Neutrophils # 8.8 H (1.3-7.7) k/uL Lymphocytes # 0.5 L (1.0-4.8) k/uL ABG HCO3 (21-25) mmol/L ABG Total CO2 (19-24) mmol/L ABG O2 Saturation (94-97) % Potassium (3.5-5.1) mmol/L Chloride (98-107) mmol/L BUN (9-20) mg/dL Glucose (74-99) mg/dL POC Glucose (mg/dL) 187 H 144 H (70-110) mg/dL Calcium (8.4-10.2) mg/dL 12/01/22 12/01/22 12/01/22 Range/Units 03:10 06:03 11:16 RBC (4.30-5.90) m/uL Hgb (13.0-17.5) gm/dL Hct (39.0-53.0) % Neutrophils # (1.3-7.7) k/uL Lymphocytes # (1.0-4.8) k/uL ABG HCO3 28 H (21-25) mmol/L ABG Total CO2 29 H (19-24) mmol/L ABG O2 Saturation 97.8 H (94-97) % Potassium 3.1 L (3.5-5.1) mmol/L Chloride 115 H (98-107) mmol/L BUN 24 H (9-20) mg/dL Glucose 112 H (74-99) mg/dL POC Glucose (mg/dL) 171 H (70-110) mg/dL Calcium 7.6 L (8.4-10.2) mg/dL Microbiology - Last 24 Hours (Table) 11/27/22 14:16 Blood Culture Gram Stain - Final Blood Blood Culture - Final Coagulase Negative Staph Coagulase Negative Staph#2 Assessment and Plan Assessment: -- Acute hypoxemic respiratory failure secondary to COVID-19 infection and possible aspiration. Patient is on BiPAP at a pressure of 12/6 with an FiO2 of 40%. Oxygen patient said stable for now. Awaiting morning chest x-ray. Remains on Unasyn and vancomycin. Less tachypneic. Minute ventilations significantly lower and improved on today's evaluation with a pulse ox of 99% Acute Covid 19 infection, currently on Decadron Acute aspiration with left perihilar pulmonary infiltrate/pneumonia Chronic obstructive pulmonary disease, appears stable Essential hypertension Hyperlipidemia Parkinson's disease Developmental delay/cognitive impairment Discontinue the BiPAP and was this patient and nasal cannula Continue IV Unasyn and vancomycin Aspiration precautions Swallow evaluation Continue IV Unasyn Awaiting final culture with gram-positive in the blood and the patient is covered with vancomycin Aspiration precautions IV fluids normal sed rate of 100 mL an hour No need for pressors Lovenox for DVT prophylaxis Full CODE STATUS Long-term prognosis poor based above-mentioned comorbidities. We'll continue to follow.
--- NOTE | 2022-12-02 19:00 | P.PN ---
Subjective Progress Note Date: 12/02/22 Patient was found to be in some respiratory distress and hypoxic at the [facility] where he resides. Patient is a 77-year-old male with past medical history significant for COPD, hypertension, hyperlipidemia, Parkinson's disease, and schizophrenia. The patient has been having some progressively worsening dyspnea over the past 3 days. The patient reportedly did test positive for COVID-19 at the outside facility earlier yesterday. He resides at [facility]. The patient's respiratory status did worsen yesterday afternoon. EMS was called. The patient was placed on the CPAP, and the patient did vomit multiple times. There was concern for possible aspiration. On arrival to the emergency departme yesterday afternoon, the patient was transitioned to a 15 L nonrebreather. NG tube was inserted for gastric decompression. Chest x-ray did not show any acute infiltrates or evidence of pneumonia. The NG tube was at the level of the GE junction and recommended advancement approximately 4 cm. The patient is currently lying in bed, on a 10 L nonrebreather, in no acute distress. He is actually oxygenating at 99%, and could be transition to nasal cannula. He does have a very congested nonproductive cough. Cough is weak, and there appears to be a lot of upper airway secretions. Abdomen is soft and nontender, and does not appear acute. NG tube is to LIS with minimal output. He is a poor historian. He is currently afebrile. He was started on empiric Unasyn for possible aspiration. He was also given a dose of Decadron in the emergency room. CBC on arrival was unremarkable. BMP shows sodium 138, potassium 3.7, chloride 97, serum bicarb 33, BUN 20, creatinine 0.97, glucose 144. Normal saline is infusing at 100 ML's per hour. Patient did test positive for COVID- 19. Procalcitonin is minimally elevated at 0.12. CRP 4.3. Vital signs are stable at this time. 12/01/2022 --patient is seen and evaluated at bedside in ICU; currently off the BiPAP . He was taken off the BiPAP yesterday and currently is on 3 L of oxygen by nasal cannula. The chest x-ray still showing perihilar bilateral pulmonary infiltrates. There is also development of a small left-sided pleural effusion on today's chest x- ray. Noted the patient is a case of positive Covid 19 infection with superinfection with bacteria as the patient had a large volume aspiration. Currently, his cough is weak yet adequate. --Blood gas from today shows a pH of 7.42 with a pCO2 of 43 and a pO2 of 93 and this was on FiO2 of 36%. BUN is at 24 with a creatinine of 0.7. The white cell cause of 9.7 with a hemoglobin of 8.3. -- The patient remains on IV Unasyn and vancomycin. IV fluids are in the form of normal saline at the rate of 100 mL an hour. 12/02/2022 - patient has been transferred out of the intensive care unit and the patient is currently on a medical floor on 3 L of oxygen by nasal cannula. He remains on Decadron. No new complaints. He was also treated for an aspiration pneumonia and the patient remains on IV Unasyn. He is resting comfortably in bed. No signs of any respiratory distress. Limited congestive cough. IV fluids are at normal saline at rate of 20 mL an hour. He remains on Ventolin HFA. Remains on Lovenox 40 mg DVT prophylaxis. He does have significant cognitive impairment due to his underlying schizophrenia Parkinson's disease. Prognosis remains poor Objective - Vital Signs Vital signs: Vital Signs Temp 97.9 F 12/02/22 07:53 Pulse 54 L 12/02/22 07:53 Resp 18 12/02/22 08:36 BP 101/55 12/02/22 07:53 Pulse Ox 97 12/02/22 08:14 FiO2 40 11/30/22 09:31 Intake & Output 12/01/22 12/02/22 12/02/22 18:59 06:59 18:59 Intake Total 557.782 200 Output Total 9195 425 Balance -7002.218 -225 Weight 64.5 kg Intake: IV 550 200 Ampicillin-Sulbactam 3 gm 200 100 In Sodium Chloride 0.9% 100 ml @ 200 mls/hr IVPB Q8HR [facility] Rx#:[id number] Sodium Chloride 0.9% 1, 200 000 ml @ 100 mls/hr IV . Q10H [facility] Rx#:[id number] Sodium Chloride 0.9% 1, 150 100 000 ml @ 20 mls/hr IV . Q24H [facility] Rx#:[id number] Intake, IV Titration 7.782 Amount Norepinephrine 4 mg In 7.782 Sodium Chloride 0.9% 250 ml @ 0.03 MCG/KG/MIN 7. 372 mls/hr IV .Q24H [facility] Rx#:[id number] Output: Urine 2315 425 Other: Voiding Method Indwelling Catheter Indwelling Catheter Indwelling Catheter # Bowel Movements 2 ABP, PAP, CO, CI - Last Documented Arterial Blood Pressure 110/43 - Exam GENERAL EXAM: Alert, 77-year-old white male , fairly comfortable on BiPAP and the patient is tolerating the BiPAP without any major difficulties. HEAD: Normocephalic and atraumatic THROAT: No erythema or exudates. NECK: No masses, no JVD. CHEST: No chest wall deformity. LUNGS: Equal air entry with few bibasilar crackles. no wheeze, rhonchi or dullness. There is a nonproductive congested cough. Weak cough. CVS: S1 and S2 normal with no audible murmur, regular rhythm. No extra heart sounds ABDOMEN: No hepatosplenomegaly, active bowel sounds, no guarding or rigidity. there is a NG tube through the right nare to LIS. Very minimal output. SKIN: No rashes. There is a left lateral foot wound. CENTRAL NERVOUS SYSTEM: No focal deficits, tone is normal in all 4 extremities. He is altered and disoriented to place and time. EXTREMITIES: There is no peripheral edema or cyanosis. there is no clubbing in bilateral toenail onychomycosis. Peripheral pulses are intact. - Labs CBC & Chem 7: 12/01/22 03:10 12/02/22 05:38 Assessment and Plan Assessment: -- Acute hypoxemic respiratory failure secondary to COVID-19 infection and possible aspiration. Patient is on BiPAP at a pressure of 12/6 with an FiO2 of 40%. Oxygen patient said stable for now. Awaiting morning chest x-ray. Remains on Unasyn and vancomycin. Less tachypneic. Minute ventilations significantly lower and improved on today's evaluation with a pulse ox of 99% Acute Covid 19 infection, currently on Decadron Acute aspiration with left perihilar pulmonary infiltrate/pneumonia Chronic obstructive pulmonary disease, appears stable Essential hypertension Hyperlipidemia Parkinson's disease Developmental delay/cognitive impairment Discontinue the BiPAP and was this patient and nasal cannula Continue IV Unasyn and vancomycin Aspiration precautions Swallow evaluation Continue IV Unasyn Awaiting final culture with gram-positive in the blood and the patient is covered with vancomycin Aspiration precautions IV fluids normal sed rate of 100 mL an hour No need for pressors Lovenox for DVT prophylaxis Full CODE STATUS Long-term prognosis poor based above-mentioned comorbidities. We'll continue to follow.
[2022-12-02] MEDS: CHLORTHALIDONE 25 MG TAB PO SCH (21:52)
[2022-12-02] MEDS: allopurinoL 100 MG TAB PO SCH (22:19)
[2022-12-02] MEDS: ATORVASTATIN 80 MG TAB PO SCH (22:19)
[2022-12-02] MEDS: DIVALPROEX SPRINKLE 125 MG CAP.SPRINK PO SCH (22:19)
[2022-12-03] MEDS: AMPICILLIN-SULBACTAM 3 GM in SODIUM CHLORIDE 0.9% 100 ML IVPB SCH ×3 (00:27→17:10)
[2022-12-03] MEDS: LEVOTHYROXINE 50 MCG TAB PO SCH (06:29)
[2022-12-03] MEDS: ALBUTEROL HFA INHALER INHALATION SCH ×4 (08:18→21:15)
[2022-12-03] MEDS: TIOTROPIUM 2.5 MCG INHALER INHALATION SCH (08:18)
[2022-12-03] MEDS: ZINC SULFATE 220 MG CAP PO SCH (08:52)
[2022-12-03] MEDS: ASCORBIC ACID 500 MG TAB PO SCH (08:53)
[2022-12-03] MEDS: DEXAMETHASONE SOD PHOSPHATE 10 MG/ML 1 ML VIAL IVP SCH (08:53)
[2022-12-03] MEDS: DIVALPROEX SPRINKLE 125 MG CAP.SPRINK PO SCH ×2 (08:53→21:33)
[2022-12-03] MEDS: ENOXAPARIN 40 MG/0.4 ML SYRINGE SQ SCH (08:53)
[2022-12-03] MEDS: POTASSIUM CHLORIDE ER 10 MEQ TAB.ER.PRT PO SCH (08:53)
[2022-12-03] MEDS: SENNOSIDES-DOCUSATE SODIUM 1 EACH TAB PO SCH ×2 (08:53→21:33)
[2022-12-03] MEDS: SODIUM CHLORIDE 0.9% 1,000 ML IV SCH (08:54)
[2022-12-03 09:11] LABS: African American GFR (CKD) >90 (>60 ml/min/1.73 sqM); Non-African American GFR(CKD) >90 (>60 ml/min/1.73 sqM)
[2022-12-03] MEDS ORDERED: FUROSEMIDE 10 MG/ML 4 ML VIAL IV STA (10:03)
--- NOTE | 2022-12-03 12:59 | P.PN ---
Subjective Progress Note Date: 12/03/22 I am seeing this patient in new consultation today 11/28/2022 is found to be in some respiratory distress and hypoxic at the [facility] where he resides. Patient is a 77-year-old male with past medical history significant for COPD, hypertension, hyperlipidemia, Parkinson's disease, and schizophrenia. The patient has been having some progressively worsening dyspnea over the past 3 days. The patient reportedly did test positive for COVID-19 at the outside facility earlier yesterday. He resides at [facility]. The patient's respiratory status did worsen yesterday afternoon. EMS was called. The patient was placed on the CPAP, and the patient did vomit multiple times. There was concern for possible aspiration. On arrival to the emergency department yesterday afternoon, the patient was transitioned to a 15 L nonrebreather. NG tube was inserted for gastric decompression. Chest x-ray did not show any acute infiltrates or evidence of pneumonia. The NG tube was at the level of the GE junction and recommended advancement approximately 4 cm. The patient is currently lying in bed, on a 10 L nonrebreather, in no acute distress. He is actually oxygenating at 99%, and could be transition to nasal cannula. He does have a very congested nonproductive cough. Cough is weak, and there appears to be a lot of upper airway secretions. Abdomen is soft and nontender, and does not appear acute. NG tube is to LIS with minimal output. He is a poor historian. He is currently afebrile. He was started on empiric Unasyn for possible aspiration. He was also given a dose of Decadron in the emergency room. CBC on arrival was unremarkable. BMP shows sodium 138, potassium 3.7, chloride 97, serum bicarb 33, BUN 20, creatinine 0.97, glucose 144. Normal saline is infusing at 100 ML's per hour. Patient did test positive for COVID-19. Procalcitonin is minimally elevated at 0.12. CRP 4.3. Vital signs are stable at this time. Today's evaluation of 11/29/2022 the patient remains on a BiPAP. I transfer this patient to the intensive care unit yesterday. He was having continued labored breathing and he was decompensating even while being on a BiPAP. I'm over the to the intensive care. Initially, I was considering to intubate the patient. Subsequently, he stabilized and I kept him on BiPAP overnight and the BiPAP is running at rashes of 12 was 6 with a FiO2 of 60%. Chest x-ray from today is still showing a left perihilar pulmonary infiltrate which is similar and probably minimally improved compared to yesterday. The patient is diagnosed having Covid 19 infection and the patient remains on Decadron. The patient also had an aspiration event requiring broad-spectrum antibiotics and the patient is currently on IV Unasyn. Subsequent blood cultures showed gram-positive cocci and vancomycin was also added pending further cultures. On today's evaluation, he is hemodynamically stable. He is on IV fluids running at 100 mL an hour of normal saline. His blood gas is still pending from today. His illness, that 14.2 with a hemoglobin of 0.8 and a platelet count of 177. Sodium is at 142, serum bicarb is 29 with a BUN of 21 and a creatinine of 0.7. He is lethargic yet arousable. He doesn't communicate effectively. The patient has underlying chronic cognitive impairment and psychiatric disability. He does have a public guardian was given informed on his situation. He has been On a full CODE STATUS based on a court order. On 11/30/2022, the patient is comfortable in his breathing and is less tachypneic and he is doing some communication. His profoundly weak. He has a cough. He is on a BiPAP at a pressure of 12/6 cm of water. We are still awaiting his morning chest x-ray. He remains on IV Unasyn. He remains on vancomycin. The blood culture was growing gram-positive cocci and this is probably a contaminant. Awaiting final cultures. Lites echoes down to 14.2 with a hemoglobin of 9.9. Sodium is at 146, BUN is at 23 with a creatinine of 0.7. The patient remains on normal saline at rate of 100 mL an hour. Urine operas adequate. Overnight, he became slightly hypotensive and I recommended norepinephrine and he took it briefly. Currently is off the norepinephrine infusion. He remains on Decadron. He remains nothing by mouth for now. No ot her significant events overnight. Overall, he seems to be more stable, less tachypneic and short of breath compared to 24-48 hours. 12/01/2022, the patient is off the BiPAP still. He was taken off the BiPAP yesterday and currently is on 3 L of oxygen by nasal cannula. The chest x-ray still showing perihilar bilateral pulmonary infiltrates. There is also development of a small left-sided pleural effusion on today's chest x-ray. Noted the patient is a case of positive Covid 19 infection with superinfection with bacteria as the patient had a large volume aspiration. Currently, his cough is weak yet adequate. His blood gas from today shows a pH of 7.42 with a pCO2 of 43 and a pO2 of 93 and this was on FiO2 of 36%. BUN is at 24 with a creatinine of 0.7. The white cell cause of 9.7 with a hemoglobin of 8.3. The patient remains on Iv Unasyn and vancomycin. IV fluids are in the form of normal saline at the rate of 100 mL an hour. We will was discontinued this morning. He is maintaining his own blood pressure at this point in time. No other significant events overnight. The patient is, comfortable and well rested at this point. 12/02/2022, the patient has been transferred out of the intensive care unit and the patient is currently on a medical floor on 3 L of oxygen by nasal cannula. He remains on Decadron. No new complaints. He was also treated for an aspiration pneumonia and the patient remains on IV Unasyn. He is resting comfortably in bed. No signs of any respiratory distress. Limited congestive cough. IV fluids are at normal saline at rate of 20 mL an hour. He remains on Ventolin HFA. Remains on Lovenox 40 mg DVT prophylaxis. He does have significant cognitive impairment due to his underlying schizophrenia Parkinson's disease. No new labs are available from today. Labs from yesterday was noted. He is able to tolerate diet and he is taking oral intake. The patient is seen today 12/03/2022 in follow-up on the regular medical floor. He is currently awake and alert. He does have significant cognitive impairment due to his underlying schizophrenia Parkinson's disease. Maintaining good O2 saturations in the high 90s on 2 L/m per nasal cannula. He's been afebrile. Hemodynamically stable. Creatinine 0.68. He is continued on Unasyn. Remains on Decadron. Vitamin supplements. Bronchodilators. Lovenox for DVT prophylaxis. Objective - Vital Signs Vital signs: Vital Signs Temp 97.7 F 12/03/22 07:57 Pulse 55 L 12/03/22 07:57 Resp 20 12/03/22 08:00 BP 118/55 12/03/22 07:57 Pulse Ox 98 12/03/22 07:57 FiO2 40 11/30/22 09:31 Intake & Output 12/02/22 12/03/22 12/03/22 18:59 06:59 18:59 Intake Total 1220 1300 118 Output Total 400 Balance 820 1300 118 Intake: Intake, IV Titration 1300 Amount Ampicillin-Sulbactam 3 gm 100 In Sodium Chloride 0.9% 100 ml @ 200 mls/hr IVPB Q8HR [facility] Rx#:[id number] Sodium Chloride 0.9% 1, 1200 000 ml @ 100 mls/hr IV . Q10H [facility] Rx#:[id number] Oral 1220 118 Output: Urine 400 Other: Voiding Method Indwelling Catheter Indwelling Catheter Indwelling Catheter # Bowel Movements 2 ABP, PAP, CO, CI - Last Documented Arterial Blood Pressure 110/43 - Exam GENERAL EXAM: Alert, 77-year-old male , fairly comfortable on 2 L of oxygen nasal cannula HEAD: Normocephalic and atraumatic EYES: Normal reaction of pupils, equal size. NOSE: Clear with pink turbinates. THROAT: No erythema or exudates. NECK: No masses, no JVD. CHEST: No chest wall deformity. LUNGS: Equal air entry with few bibasilar crackles. no wheeze, rhonchi or dullness. There is a nonproductive congested cough. CVS: S1 and S2 normal with no audible murmur, regular rhythm. No extra heart sounds ABDOMEN: No hepatosplenomegaly, active bowel sounds, no guarding or rigidity. SPINE: No scoliosis or deformity SKIN: No rashes. There is a left lateral foot wound. CENTRAL NERVOUS SYSTEM: No focal deficits, tone is normal in all 4 extremities. He is altered and disoriented to place and time. EXTREMITIES: There is no peripheral edema or cyanosis. No clubbing in bilateral toenail onychomycosis. Peripheral pulses are intact. - Labs CBC & Chem 7: 12/01/22 03:10 12/03/22 07:51 Assessment and Plan Assessment: Acute hypoxemic respiratory failure secondary to COVID-19 infection and possible aspiration. Remains on Unasyn. Chest x-ray shows perihilar bilateral pulmonary infiltrates and the patient remains on 2 L O2 nasal cannula. The patient's respiratory status remains stable. Episodic hypotension requiring norepinephrine, recovered with stabilized blood pressure. Acute Covid 19 infection, currently on Decadron Acute aspiration with left perihilar pulmonary infiltrate/pneumonia Chronic obstructive pulmonary disease, appears stable Essential hypertension Hyperlipidemia Parkinson's disease Onychomycosis Developmental delay/cognitive impairment snf resident Plan: The patient was seen and evaluated Currently stable and on 2 L nasal cannula Chest x-ray and labs reviewed Give Lasix 40 mg IVP times one Continue antibiotics Continue bronchodilators Lovenox for DVT prophylaxis Follow-up chest x-ray in a.m. Plan is for return to [facility] at discharge I have personally seen and examined the patient, performed the documentation and the assessment and plan as written. Number of minutes spent on the visit: 10.
[2022-12-03 14:09] VITALS: BMI 24.4
[2022-12-03] MEDS: CHLORTHALIDONE 25 MG TAB PO SCH (21:33)
[2022-12-03] MEDS: ATORVASTATIN 80 MG TAB PO SCH (21:34)
[2022-12-03] MEDS: allopurinoL 100 MG TAB PO SCH (21:34)
[2022-12-04] MEDS: AMPICILLIN-SULBACTAM 3 GM in SODIUM CHLORIDE 0.9% 100 ML IVPB SCH ×3 (00:36→15:21)
[2022-12-04] MEDS: LEVOTHYROXINE 50 MCG TAB PO SCH (06:00)
--- NOTE | 2022-12-04 08:15 | XR ---
EXAMINATION TYPE: XR chest 1V portable DATE OF EXAM: 12/04/2022 HISTORY: Shortness of breath. COMPARISON: 12/01/2022 TECHNIQUE: Single view of the chest is submitted. FINDINGS: Demonstrated are scattered senescent parenchymal change. Perihilar and basilar infiltrates with pleural effusions persist. Correlate for pneumonia. The heart is stable. Hilar and mediastinal structures are within normal limits. Degenerative changes are seen of the dorsal spine. IMPRESSION: 1. Perihilar and basilar infiltrates with pleural effusions persist. Correlate for pneumonia.
[2022-12-04] MEDS: TIOTROPIUM 2.5 MCG INHALER INHALATION SCH (08:35)
[2022-12-04] MEDS: ALBUTEROL HFA INHALER INHALATION SCH ×4 (08:36→20:57)
[2022-12-04] MEDS: ASCORBIC ACID 500 MG TAB PO SCH (08:49)
[2022-12-04] MEDS: ZINC SULFATE 220 MG CAP PO SCH (08:49)
[2022-12-04] MEDS: ENOXAPARIN 40 MG/0.4 ML SYRINGE SQ SCH (08:49)
[2022-12-04] MEDS: SODIUM CHLORIDE 0.9% 1,000 ML IV SCH (08:50)
[2022-12-04] MEDS: DEXAMETHASONE SOD PHOSPHATE 10 MG/ML 1 ML VIAL IVP SCH (08:50)
[2022-12-04] MEDS: POTASSIUM CHLORIDE ER 10 MEQ TAB.ER.PRT PO SCH ×3 (08:50→16:38)
[2022-12-04] MEDS: DIVALPROEX SPRINKLE 125 MG CAP.SPRINK PO SCH ×2 (08:50→23:15)
[2022-12-04] MEDS: SENNOSIDES-DOCUSATE SODIUM 1 EACH TAB PO SCH ×2 (08:50→23:16)
[2022-12-04] MEDS ORDERED: FUROSEMIDE 10 MG/ML 4 ML VIAL IV STA (09:35)
--- NOTE | 2022-12-04 11:20 | P.PN ---
Subjective Progress Note Date: 12/04/22 I am seeing this patient in new consultation today 11/28/2022 is found to be in some respiratory distress and hypoxic at the [facility] where he resides. Patient is a 77-year-old male with past medical history significant for COPD, hypertension, hyperlipidemia, Parkinson's disease, and schizophrenia. The patient has been having some progressively worsening dyspnea over the past 3 days. The patient reportedly did test positive for COVID-19 at the outside facility earlier yesterday. He resides at [facility]. The patient's respiratory status did worsen yesterday afternoon. EMS was called. The patient was placed on the CPAP, and the patient did vomit multiple times. There was concern for possible aspiration. On arrival to the emergency department yesterday afternoon, the patient was transitioned to a 15 L nonrebreather. NG tube was inserted for gastric decompression. Chest x-ray did not show any acute infiltrates or evidence of pneumonia. The NG tube was at the level of the GE junction and recommended advancement approximately 4 cm. The patient is currently lying in bed, on a 10 L nonrebreather, in no acute distress. He is actually oxygenating at 99%, and could be transition to nasal cannula. He does have a very congested nonproductive cough. Cough is weak, and there appears to be a lot of upper airway secretions. Abdomen is soft and nontender, and does not appear acute. NG tube is to LIS with minimal output. He is a poor historian. He is currently afebrile. He was started on empiric Unasyn for possible aspiration. He was also given a dose of Decadron in the emergency room. CBC on arrival was unremarkable. BMP shows sodium 138, potassium 3.7, chloride 97, serum bicarb 33, BUN 20, creatinine 0.97, glucose 144. Normal saline is infusing at 100 ML's per hour. Patient did test positive for COVID-19. Procalcitonin is minimally elevated at 0.12. CRP 4.3. Vital signs are stable at this time. Today's evaluation of 11/29/2022 the patient remains on a BiPAP. I transfer this patient to the intensive care unit yesterday. He was having continued labored breathing and he was decompensating even while being on a BiPAP. I'm over the to the intensive care. Initially, I was considering to intubate the patient. Subsequently, he stabilized and I kept him on BiPAP overnight and the BiPAP is running at rashes of 12 was 6 with a FiO2 of 60%. Chest x-ray from today is still showing a left perihilar pulmonary infiltrate which is similar and probably minimally improved compared to yesterday. The patient is diagnosed having Covid 19 infection and the patient remains on Decadron. The patient also had an aspiration event requiring broad-spectrum antibiotics and the patient is currently on IV Unasyn. Subsequent blood cultures showed gram-positive cocci and vancomycin was also added pending further cultures. On today's evaluation, he is hemodynamically stable. He is on IV fluids running at 100 mL an hour of normal saline. His blood gas is still pending from today. His illness, that 14.2 with a hemoglobin of 0.8 and a platelet count of 177. Sodium is at 142, serum bicarb is 29 with a BUN of 21 and a creatinine of 0.7. He is lethargic yet arousable. He doesn't communicate effectively. The patient has underlying chronic cognitive impairment and psychiatric disability. He does have a public guardian was given informed on his situation. He has been On a full CODE STATUS based on a court order. On 11/30/2022, the patient is comfortable in his breathing and is less tachypneic and he is doing some communication. His profoundly weak. He has a cough. He is on a BiPAP at a pressure of 12/6 cm of water. We are still awaiting his morning chest x-ray. He remains on IV Unasyn. He remains on vancomycin. The blood culture was growing gram-positive cocci and this is probably a contaminant. Awaiting final cultures. Lites echoes down to 14.2 with a hemoglobin of 9.9. Sodium is at 146, BUN is at 23 with a creatinine of 0.7. The patient remains on normal saline at rate of 100 mL an hour. Urine operas adequate. Overnight, he became slightly hypotensive and I recommended norepinephrine and he took it briefly. Currently is off the norepinephrine infusion. He remains on Decadron. He remains nothing by mouth for now. No ot her significant events overnight. Overall, he seems to be more stable, less tachypneic and short of breath compared to 24-48 hours. 12/01/2022, the patient is off the BiPAP still. He was taken off the BiPAP yesterday and currently is on 3 L of oxygen by nasal cannula. The chest x-ray still showing perihilar bilateral pulmonary infiltrates. There is also development of a small left-sided pleural effusion on today's chest x-ray. Noted the patient is a case of positive Covid 19 infection with superinfection with bacteria as the patient had a large volume aspiration. Currently, his cough is weak yet adequate. His blood gas from today shows a pH of 7.42 with a pCO2 of 43 and a pO2 of 93 and this was on FiO2 of 36%. BUN is at 24 with a creatinine of 0.7. The white cell cause of 9.7 with a hemoglobin of 8.3. The patient remains on Iv Unasyn and vancomycin. IV fluids are in the form of normal saline at the rate of 100 mL an hour. We will was discontinued this morning. He is maintaining his own blood pressure at this point in time. No other significant events overnight. The patient is, comfortable and well rested at this point. 12/02/2022, the patient has been transferred out of the intensive care unit and the patient is currently on a medical floor on 3 L of oxygen by nasal cannula. He remains on Decadron. No new complaints. He was also treated for an aspiration pneumonia and the patient remains on IV Unasyn. He is resting comfortably in bed. No signs of any respiratory distress. Limited congestive cough. IV fluids are at normal saline at rate of 20 mL an hour. He remains on Ventolin HFA. Remains on Lovenox 40 mg DVT prophylaxis. He does have significant cognitive impairment due to his underlying schizophrenia Parkinson's disease. No new labs are available from today. Labs from yesterday was noted. He is able to tolerate diet and he is taking oral intake. The patient is seen today 12/03/2022 in follow-up on the regular medical floor. He is currently awake and alert. He does have significant cognitive impairment due to his underlying schizophrenia Parkinson's disease. Maintaining good O2 saturations in the high 90s on 2 L/m per nasal cannula. He's been afebrile. Hemodynamically stable. Creatinine 0.68. He is continued on Unasyn. Remains on Decadron. Vitamin supplements. Bronchodilators. Lovenox for DVT prophylaxis. The patient is seen today 12/04/2022 in follow-up on the regular medical floor. He is currently resting comfortably in bed. Maintaining O2 saturations in the 90s on room air. Chest x-ray showing perihilar and basilar infiltrates with pleural effusions persist. ProBNP 4260. Give Lasix 40 mg IVP 1 today. Continue bronchodilators. Continue Lovenox for DVT prophylaxis. Remains on Decadron. Objective - Vital Signs Vital signs: Vital Signs Temp 98.3 F 12/04/22 08:00 Pulse 56 L 12/04/22 08:00 Resp 16 12/04/22 08:00 BP 135/66 12/04/22 08:00 Pulse Ox 99 12/04/22 08:37 FiO2 40 11/30/22 09:31 Intake & Output 12/03/22 12/04/22 12/04/22 18:59 06:59 18:59 Intake Total 474 Output Total 2900 550 Balance -2426 -550 Weight 64.5 kg Intake: Oral 474 Output: Urine 2900 550 Other: Voiding Method Indwelling Catheter Indwelling Catheter # Bowel Movements 1 1 ABP, PAP, CO, CI - Last Documented Arterial Blood Pressure 110/43 - Exam GENERAL EXAM: Alert, pleasant 77-year-old male, comfortable, on room air HEAD: Normocephalic and atraumatic EYES: Normal reaction of pupils, equal size. NOSE: Clear with pink turbinates. THROAT: No erythema or exudates. NECK: No masses, no JVD. CHEST: No chest wall deformity. LUNGS: Equal air entry with few bibasilar crackles. no wheeze, rhonchi or dullness. CVS: S1 and S2 normal with no audible murmur, regular rhythm. No extra heart sounds ABDOMEN: No hepatosplenomegaly, active bowel sounds, no guarding or rigidity. SPINE: No scoliosis or deformity SKIN: No rashes. There is a left lateral foot wound. CENTRAL NERVOUS SYSTEM: No focal deficits, tone is normal in all 4 extremities. He is altered and disoriented to place and time. EXTREMITIES: There is no peripheral edema or cyanosis. No clubbing in bilateral toenail onychomycosis. Peripheral pulses are intact. - Labs CBC & Chem 7: 12/01/22 03:10 12/03/22 07:51 Assessment and Plan Assessment: Acute hypoxemic respiratory failure secondary to COVID-19 infection and possible aspiration. Remains on Unasyn. Chest x-ray shows perihilar bilateral pulmonary infiltrates. Stable and on room air. BNP 4060. Additional Lasix given today. Episodic hypotension requiring norepinephrine, recovered with stabilized blood pressure. Acute Covid 19 infection, currently on Decadron Acute aspiration with left perihilar pulmonary infiltrate/pneumonia Chronic obstructive pulmonary disease, appears stable Essential hypertension Hyperlipidemia Parkinson's disease Onychomycosis Developmental delay/cognitive impairment [facility] resident Plan: The patient was seen and evaluated Currently stable and on room air Chest x-ray, medication and labs reviewed Give Lasix 40 mg IVP times one Cleared for return to ECF from the pulmonary standpoint I have personally seen and examined the patient, performed the documentation and the assessment and plan as written. Number of minutes spent on the visit: 10.
[2022-12-04 13:21] LABS: Basophils % (A) 0 %; Eosinophils % (A) 1 %; HCT 27.9 % (39.0-53.0); HGB 9.1 gm/dL (13.0-17.5); Lymphocytes # (A) 0.7 k/uL (1.0-4.8); Lymphocytes % (A) 15 %; MCH 31.6 pg (25.0-35.0); MCHC 32.7 g/dL (31.0-37.0); MCV 96.6 fL (80.0-100.0); Mean Platelet Volume 8.5; Monocytes # (A) 0.3 k/uL (0-1.0); Monocytes % (A) 7 %; Neutrophils # (A) 3.5 k/uL (1.3-7.7); Neutrophils % (A) 77 %; Platelet Count 177 k/uL (150-450); RBC 2.89 m/uL (4.30-5.90); WBC 4.6 k/uL (3.8-10.6)
[2022-12-04 13:34] LABS: ALT 13 U/L (4-49); AST 23 U/L (17-59); African American GFR (CKD) >90 (>60 ml/min/1.73 sqM); Albumin 2.2 g/dL (3.5-5.0); Albumin/Globulin Ratio 0.8; Alkaline Phosphatase 53 U/L (38-126); Anion Gap 4 mmol/L; Blood Urea Nitrogen 15 mg/dL (9-20); Calcium 7.7 mg/dL (8.4-10.2); Carbon Dioxide 34 mmol/L (22-30); Chloride 107 mmol/L (98-107); Globulin 2.6 g/dL; Glucose 128 mg/dL (74-99); Non-African American GFR(CKD) 89 (>60 ml/min/1.73 sqM); Sodium 145 mmol/L (137-145); Total Bilirubin 0.4 mg/dL (0.2-1.3); Total Protein 4.8 g/dL (6.3-8.2)
[2022-12-04] MEDS ORDERED: POTASSIUM CHLORIDE ER 20 MEQ TAB.ER PO SCH (15:00)
--- NOTE | 2022-12-04 22:26 | PN ---
PROGRESS NOTE CHIEF COMPLAINT: COVID pneumonia with respiratory failure. HISTORY OF PRESENT ILLNESS: The patient seems to be doing fairly well, but he is still on nasal O2. He is eating some. PHYSICAL EXAMINATION: VITAL SIGNS: Normal. CHEST: Demonstrates rales throughout. CARDIAC: Demonstrates sinus rhythm. ABDOMEN: Soft. IMPRESSION: Slowly resolving COVID pneumonia. PLAN: Continue on current program until he is able to return to the alf. MMODL / IJN: [id number] /
[2022-12-04] MEDS: allopurinoL 100 MG TAB PO SCH (23:15)
[2022-12-04] MEDS: ATORVASTATIN 80 MG TAB PO SCH (23:15)
[2022-12-04] MEDS: CHLORTHALIDONE 25 MG TAB PO SCH (23:16)
[2022-12-05] MEDS: AMPICILLIN-SULBACTAM 3 GM in SODIUM CHLORIDE 0.9% 100 ML IVPB SCH ×2 (01:57→09:12)
--- NOTE | 2022-12-05 03:07 | PN ---
PROGRESS NOTE CHIEF COMPLAINT: COVID pneumonia. HISTORY OF PRESENT ILLNESS: This is a gentleman who continues to improve slowly, but still has a pronounced pneumonia on x-ray. PHYSICAL EXAMINATION: GENERAL: He remains pale. CHEST: Demonstrates decreased breath sounds and he still has persistent wheezes, rales and rhonchi. CARDIAC: Normal. IMPRESSION: Coronavirus disease pneumonia. PLAN: Continue with inpatient management until his shortness of breath has improved. X-ray begins to clear. He will be tried on room air today. MMODL / IJN: [id number] /
[2022-12-05 06:31] LABS: ALT 12 U/L (4-49); African American GFR (CKD) >90 (>60 ml/min/1.73 sqM); Albumin 2.3 g/dL (3.5-5.0); Albumin/Globulin Ratio 0.8; Anion Gap 3 mmol/L; Blood Urea Nitrogen 15 mg/dL (9-20); Calcium 7.9 mg/dL (8.4-10.2); Carbon Dioxide 37 mmol/L (22-30); Chloride 104 mmol/L (98-107); Globulin 2.8 g/dL; Glucose 80 mg/dL (74-99); Non-African American GFR(CKD) >90 (>60 ml/min/1.73 sqM); Sodium 144 mmol/L (137-145); Total Bilirubin 0.5 mg/dL (0.2-1.3); Total Protein 5.1 g/dL (6.3-8.2)
[2022-12-05 06:37] LABS: AST 24 U/L (17-59); Alkaline Phosphatase 45 U/L (38-126); Potassium 3.7 mmol/L (3.5-5.1)
[2022-12-05] MEDS: LEVOTHYROXINE 50 MCG TAB PO SCH (07:06)
[2022-12-05] MEDS: ALBUTEROL HFA INHALER INHALATION SCH ×3 (07:17→15:18)
[2022-12-05 07:27] VITALS: RESP 16
[2022-12-05] MEDS: TIOTROPIUM 2.5 MCG INHALER INHALATION SCH (07:35)
[2022-12-05] MEDS: SENNOSIDES-DOCUSATE SODIUM 1 EACH TAB PO SCH (09:11)
[2022-12-05] MEDS: ASCORBIC ACID 500 MG TAB PO SCH (09:11)
[2022-12-05] MEDS: POTASSIUM CHLORIDE ER 10 MEQ TAB.ER.PRT PO SCH (09:11)
[2022-12-05] MEDS: ZINC SULFATE 220 MG CAP PO SCH (09:12)
[2022-12-05] MEDS: DEXAMETHASONE SOD PHOSPHATE 10 MG/ML 1 ML VIAL IVP SCH (09:12)
[2022-12-05] MEDS: ENOXAPARIN 40 MG/0.4 ML SYRINGE SQ SCH (09:12)
[2022-12-05] MEDS: DIVALPROEX SPRINKLE 125 MG CAP.SPRINK PO SCH (09:12)
[2022-12-05] MEDS: SODIUM CHLORIDE 0.9% 1,000 ML IV SCH (09:15)
--- NOTE | 2022-12-05 10:37 | P.PN ---
Subjective Progress Note Date: 12/05/22 I am seeing this patient in new consultation today 11/28/2022 is found to be in some respiratory distress and hypoxic at the [facility] where he resides. Patient is a 77-year-old male with past medical history significant for COPD, hypertension, hyperlipidemia, Parkinson's disease, and schizophrenia. The patient has been having some progressively worsening dyspnea over the past 3 days. The patient reportedly did test positive for COVID-19 at the outside facility earlier yesterday. He resides at [facility]. The patient's respiratory status did worsen yesterday afternoon. EMS was called. The patient was placed on the CPAP, and the patient did vomit multiple times. There was concern for possible aspiration. On arrival to the emergency department yesterday afternoon, the patient was transitioned to a 15 L nonrebreather. NG tube was inserted for gastric decompression. Chest x-ray did not show any acute infiltrates or evidence of pneumonia. The NG tube was at the level of the GE junction and recommended advancement approximately 4 cm. The patient is currently lying in bed, on a 10 L nonrebreather, in no acute distress. He is actually oxygenating at 99%, and could be transition to nasal cannula. He does have a very congested nonproductive cough. Cough is weak, and there appears to be a lot of upper airway secretions. Abdomen is soft and nontender, and does not appear acute. NG tube is to LIS with minimal output. He is a poor historian. He is currently afebrile. He was started on empiric Unasyn for possible aspiration. He was also given a dose of Decadron in the emergency room. CBC on arrival was unremarkable. BMP shows sodium 138, potassium 3.7, chloride 97, serum bicarb 33, BUN 20, creatinine 0.97, glucose 144. Normal saline is infusing at 100 ML's per hour. Patient did test positive for COVID-19. Procalcitonin is minimally elevated at 0.12. CRP 4.3. Vital signs are stable at this time. Today's evaluation of 11/29/2022 the patient remains on a BiPAP. I transfer this patient to the intensive care unit yesterday. He was having continued labored breathing and he was decompensating even while being on a BiPAP. I'm over the to the intensive care. Initially, I was considering to intubate the patient. Subsequently, he stabilized and I kept him on BiPAP overnight and the BiPAP is running at rashes of 12 was 6 with a FiO2 of 60%. Chest x-ray from today is still showing a left perihilar pulmonary infiltrate which is similar and probably minimally improved compared to yesterday. The patient is diagnosed having Covid 19 infection and the patient remains on Decadron. The patient also had an aspiration event requiring broad-spectrum antibiotics and the patient is currently on IV Unasyn. Subsequent blood cultures showed gram-positive cocci and vancomycin was also added pending further cultures. On today's evaluation, he is hemodynamically stable. He is on IV fluids running at 100 mL an hour of normal saline. His blood gas is still pending from today. His illness, that 14.2 with a hemoglobin of 0.8 and a platelet count of 177. Sodium is at 142, serum bicarb is 29 with a BUN of 21 and a creatinine of 0.7. He is lethargic yet arousable. He doesn't communicate effectively. The patient has underlying chronic cognitive impairment and psychiatric disability. He does have a public guardian was given informed on his situation. He has been On a full CODE STATUS based on a court order. On 11/30/2022, the patient is comfortable in his breathing and is less tachypneic and he is doing some communication. His profoundly weak. He has a cough. He is on a BiPAP at a pressure of 12/6 cm of water. We are still awaiting his morning chest x-ray. He remains on IV Unasyn. He remains on vancomycin. The blood culture was growing gram-positive cocci and this is probably a contaminant. Awaiting final cultures. Lites echoes down to 14.2 with a hemoglobin of 9.9. Sodium is at 146, BUN is at 23 with a creatinine of 0.7. The patient remains on normal saline at rate of 100 mL an hour. Urine operas adequate. Overnight, he became slightly hypotensive and I recommended norepinephrine and he took it briefly. Currently is off the norepinephrine infusion. He remains on Decadron. He remains nothing by mouth for now. No ot her significant events overnight. Overall, he seems to be more stable, less tachypneic and short of breath compared to 24-48 hours. 12/01/2022, the patient is off the BiPAP still. He was taken off the BiPAP yesterday and currently is on 3 L of oxygen by nasal cannula. The chest x-ray still showing perihilar bilateral pulmonary infiltrates. There is also development of a small left-sided pleural effusion on today's chest x-ray. Noted the patient is a case of positive Covid 19 infection with superinfection with bacteria as the patient had a large volume aspiration. Currently, his cough is weak yet adequate. His blood gas from today shows a pH of 7.42 with a pCO2 of 43 and a pO2 of 93 and this was on FiO2 of 36%. BUN is at 24 with a creatinine of 0.7. The white cell cause of 9.7 with a hemoglobin of 8.3. The patient remains on Iv Unasyn and vancomycin. IV fluids are in the form of normal saline at the rate of 100 mL an hour. We will was discontinued this morning. He is maintaining his own blood pressure at this point in time. No other significant events overnight. The patient is, comfortable and well rested at this point. 12/02/2022, the patient has been transferred out of the intensive care unit and the patient is currently on a medical floor on 3 L of oxygen by nasal cannula. He remains on Decadron. No new complaints. He was also treated for an aspiration pneumonia and the patient remains on IV Unasyn. He is resting comfortably in bed. No signs of any respiratory distress. Limited congestive cough. IV fluids are at normal saline at rate of 20 mL an hour. He remains on Ventolin HFA. Remains on Lovenox 40 mg DVT prophylaxis. He does have significant cognitive impairment due to his underlying schizophrenia Parkinson's disease. No new labs are available from today. Labs from yesterday was noted. He is able to tolerate diet and he is taking oral intake. The patient is seen today 12/03/2022 in follow-up on the regular medical floor. He is currently awake and alert. He does have significant cognitive impairment due to his underlying schizophrenia Parkinson's disease. Maintaining good O2 saturations in the high 90s on 2 L/m per nasal cannula. He's been afebrile. Hemodynamically stable. Creatinine 0.68. He is continued on Unasyn. Remains on Decadron. Vitamin supplements. Bronchodilators. Lovenox for DVT prophylaxis. The patient is seen today 12/04/2022 in follow-up on the regular medical floor. He is currently resting comfortably in bed. Maintaining O2 saturations in the 90s on room air. Chest x-ray showing perihilar and basilar infiltrates with pleural effusions persist. ProBNP 4260. Give Lasix 40 mg IVP 1 today. Continue bronchodilators. Continue Lovenox for DVT prophylaxis. Remains on Decadron. The patient is seen today 12/05/2022 in follow-up on the regular medical floor. He is improving daily. He is maintaining O2 saturations in the 90s on room air. He's been afebrile. Hemodynamically stable. Sitting up in a chair at the bedside. rat poisoner at the bedside. Chest x-ray revealed perihilar and basilar infiltrates with pleural effusions. Sodium 144. Potassium 3.7. Bicarb 37. BUN 15. Creatinine 0.67. He remains on Unasyn. Continued on Decadron, bronchodilators. Lovenox for DVT prophylaxis. Objective - Vital Signs Vital signs: Vital Signs Temp 97.5 F L 12/05/22 07:26 Pulse 56 L 12/05/22 07:26 Resp 16 12/05/22 07:26 BP 128/62 12/05/22 07:26 Pulse Ox 96 12/05/22 07:26 FiO2 40 11/30/22 09:31 Intake & Output 12/04/22 12/05/22 12/05/22 18:59 06:59 18:59 Intake Total 200 Output Total 3200 300 Balance -3000 -300 Intake: IV 100 Ampicillin-Sulbactam 3 gm 100 In Sodium Chloride 0.9% 100 ml @ 200 mls/hr IVPB Q8HR DANUTA Rx#:[id number] Intake, IV Titration 100 Amount Ampicillin-Sulbactam 3 gm 100 In Sodium Chloride 0.9% 100 ml @ 200 mls/hr IVPB Q8HR DANUTA Rx#:[id number] Output: Urine 3200 300 Other: Voiding Method Indwelling Catheter Indwelling Catheter # Voids 1 ABP, PAP, CO, CI - Last Documented Arterial Blood Pressure 110/43 - Exam GENERAL EXAM: Alert, cooperative 77-year-old male, sitting up in a chair, on room air HEAD: Normocephalic and atraumatic EYES: Normal reaction of pupils, equal size. NOSE: Clear with pink turbinates. THROAT: No erythema or exudates. NECK: No masses, no JVD. CHEST: No chest wall deformity. LUNGS: Equal air entry with few bibasilar crackles. no wheeze, rhonchi or dullness. CVS: S1 and S2 normal with no audible murmur, regular rhythm. No extra heart sounds ABDOMEN: No hepatosplenomegaly, active bowel sounds, no guarding or rigidity. SPINE: No scoliosis or deformity SKIN: No rashes. There is a left lateral foot wound. CENTRAL NERVOUS SYSTEM: No focal deficits, tone is normal in all 4 extremities. He is altered and disoriented to place and time. EXTREMITIES: There is no peripheral edema or cyanosis. No clubbing in bilateral toenail onychomycosis. Peripheral pulses are intact. - Labs CBC & Chem 7: 12/04/22 10:00 12/05/22 05:42 Labs: Abnormal Lab Results - Last 24 Hours (Table) 12/04/22 12/04/22 12/05/22 Range/Units 10:00 10:00 05:42 RBC 2.89 L (4.30-5.90) m/uL Hgb 9.1 L (13.0-17.5) gm/dL Hct 27.9 L (39.0-53.0) % Lymphocytes # 0.7 L (1.0-4.8) k/uL Potassium 3.0 L (3.5-5.1) mmol/L Carbon Dioxide 34 H 37 H (22-30) mmol/L Glucose 128 H (74-99) mg/dL Calcium 7.7 L 7.9 L (8.4-10.2) mg/dL Total Protein 4.8 L 5.1 L (6.3-8.2) g/dL Albumin 2.2 L 2.3 L (3.5-5.0) g/dL Assessment and Plan Assessment: Acute hypoxemic respiratory failure secondary to COVID-19 infection and possible aspiration. Remains on Unasyn. Chest x-ray shows perihilar bilateral pulmonary infiltrates. Stable and on room air. BNP 4060. Additional Lasix given yesterday. Episodic hypotension requiring norepinephrine, recovered with stabilized blood pressure. Acute Covid 19 infection, currently on Decadron Acute aspiration with left perihilar pulmonary infiltrate/pneumonia Chronic obstructive pulmonary disease, appears stable Essential hypertension Hyperlipidemia Parkinson's disease Onychomycosis Developmental delay/cognitive impairment long-term resident Plan: The patient was seen and evaluated Currently stable and on room air Medication and labs reviewed Completed a course of antibiotics Continue Decadron for a total of 10 days Cleared for return to ECF from the pulmonary standpoint I have personally seen and examined the patient, performed the documentation and the assessment and plan as written. Number of minutes spent on the visit: 10.
[2022-12-05 14:12] VITALS: BP 116/60; PULSE 67; TEMP 97.4
--- NOTE | 2022-12-05 16:29 | DS ---
DISCHARGE SUMMARY CHIEF COMPLAINT: Fever, cough, and chills. HISTORY OF PRESENT ILLNESS AND PHYSICAL EXAMINATION: Details of this man's history and physical can be found in the initial workup. LABORATORY STUDIES: While he was in the hospital, he had laboratory studies, details of which can be found in the laboratory section of his chart. COURSE IN THE HOSPITAL: After admission, he was placed on bedrest and seen and followed by Pulmonology and Intensive Medicine. He got into a significant difficulty with respirations due to COVID pneumonia. He eventually was able to be transferred out of ICU and was doing fairly well, but he still had marked abnormalities in both lungs revealing his residual pneumonitis. He was doing well enough, however, that it was felt that he could return to the residential, and he will go back to [facility] on his usual activity, diet, and medication. He will be discharged on Medrol Dosepak to taper him off the steroids that he was on the hospital. FINAL DIAGNOSES: 1. COVID pneumonia. 2. Schizophrenia. 3. Respiratory failure. OPERATIONS: None. CONSULTATIONS: Pulmonology and Intensive Medicine. CONDITION: He is improved. MMODL / IJN: [id number] /
[2022-12-06] MEDS ORDERED: methylPREDNISolone 4 MG TAB TAPER PO SCH (09:00)
[2022-12-06] MEDS ORDERED: dexAMETHasone 2 MG TAB PO SCH (09:00)
== END 2022-12-05 18:40 | DRG 177 ==
LOC: EEVIPCON 14:07 → EC 14:07 → 3SCARD 14:55 → 2SICU 11-28 18:42 → 4SSUR 12-01 22:06
PROVIDERS: ADMIT Family Medicine; ATTEND Family Medicine
PROC: 5A09457 Assistance with Respiratory Ventilation, 24-96 Consecutive Hours, Continuous Positive Airway Pressure (ICD-10-PCS; principal; 2022-11-28)
PROC: 03HY32Z Insertion of Monitoring Device into Upper Artery, Percutaneous Approach (ICD-10-PCS; 2022-11-28)
PROC: 4A133J1 Monitoring of Arterial Pulse, Peripheral, Percutaneous Approach (ICD-10-PCS; 2022-11-28)
PROC: 4A133B1 Monitoring of Arterial Pressure, Peripheral, Percutaneous Approach (ICD-10-PCS; 2022-11-28)
PROC: 02HV33Z Insertion of Infusion Device into Superior Vena Cava, Percutaneous Approach (ICD-10-PCS; 2022-11-28)
PROC: 0D9670Z Drainage of Stomach with Drainage Device, Via Natural or Artificial Opening (ICD-10-PCS; 2022-11-28)
PROC: 3E043XZ Introduction of Vasopressor into Central Vein, Percutaneous Approach (ICD-10-PCS; 2022-12-01)
DX: U07.1 COVID-19 (principal); J12.82 Pneumonia due to coronavirus disease 2019; J69.0 Pneumonitis due to inhalation of food and vomit; J96.01 Acute respiratory failure with hypoxia; J44.0 Chronic obstructive pulmonary disease with (acute) lower respiratory infection; J90 Pleural effusion, not elsewhere classified; I95.9 Hypotension, unspecified; B35.1 Tinea unguium; E78.5 Hyperlipidemia, unspecified; F79 Unspecified intellectual disabilities; I45.9 Conduction disorder, unspecified; F20.9 Schizophrenia, unspecified; G20 Parkinson's disease; I10 Essential (primary) hypertension; Z79.890 Hormone replacement therapy; Z79.899 Other long term (current) drug therapy; Z71.3 Dietary counseling and surveillance
CPT/HCPCS: 36415; 36600; 71045; 80048; 80053; 80202; 82565; 82803; 82805; 83605; 83615; 83735; 83880; 84132; 84145; 85025; 85610; 85730; 86140; 87040; 87635; 93005; 94640; 94660; 94668; 94760; 96361; 96365; 96366; 96375; 99291

== ENCOUNTER 2023-01-02 07:45 | Inpatient (IN) | payer MEDICARE, OTHER ==
[2023-01-02] MEDS ORDERED: SODIUM CHLORIDE 0.9% 1,000 ML IV STA (07:48)
[2023-01-02] MEDS ORDERED: IPRATROPIUM-ALBUTEROL 3 ML NEB INHALATION STA (07:50)
[2023-01-02] MEDS ORDERED: methylPREDNISolone SOD SUCCI 125 MG/2 ML VIAL IV STA (07:50)
[2023-01-02] MEDS ORDERED: ALBUTEROL NEBULIZED 2.5 MG/3 ML INHALATION STA (07:50)
--- NOTE | 2023-01-02 07:58 | ED ---
General Adult HPI - General Stated complaint: DC Time Seen by Provider: 01/02/23 07:48 Source: patient, EMS, RN notes reviewed, old records reviewed Limitations: physical limitation - History of Present Illness Initial comments: 77-year-old male presenting for evaluation restaurant distress and hypoxia. Recent admission to this hospital including ICU stay for coronavirus and pneumonia. Patient was found to be hypoxic and paramedics were called. During transport the patient had significant hypoxia requiring CPAP. Patient is alert, able to answer simple questions and follow basic commands. There is no measured fever. Patient had previously been on steroid taper and currently is not on antibiotics. - Related Data Home Medications Medication Instructions Recorded Confirmed Atenolol/Chlorthalidone [Tenoretic 0.5 tab PO HS 08/19/16 01/02/23 50 Tablet] Divalproex Sodium [Depakote] 500 mg PO BID 08/19/16 01/02/23 allopurinoL [Zyloprim] 100 mg PO HS 08/19/16 01/02/23 Acetaminophen Tab [Tylenol] 650 mg PO Q6H PRN 11/27/22 01/02/23 Atorvastatin Calcium [Lipitor] 80 mg PO HS 11/27/22 01/02/23 Healthshake 1 dose PO BID 11/27/22 01/02/23 Multivitamins, Thera [Multivitamin 1 tab PO DAILY 11/27/22 01/02/23 (formulary)] Sennosides/Docusate Sodium [Senna 1 tab PO BID 11/27/22 01/02/23 Plus 8.6-50 mg Tablet] Carbidopa-Levodopa ER 50-200Mg 1 tab PO TID@0800,1200,1800 01/02/23 01/02/23 [Sinemet CR 50-200 mg] Levothyroxine Sodium [Synthroid] 50 mcg PO DAILY 01/02/23 01/02/23 bisacodyL 10 mg RECTAL DAILY PRN 01/02/23 01/02/23 droNABinol [Marinol] 2.5 mg PO BID 01/02/23 01/02/23 Previous Rx's Medication Instructions Recorded Albuterol Inhaler [Ventolin Hfa 2 puff INHALATION RT-QID 30 Days 12/05/22 Inhaler] #1 dispenser Tiotropium 2.5 Mcg/Puff [Spiriva 1 puff INHALATION RT-DAILY #30 each 12/05/22 Respimat 2.5 Mcg] Allergies Allergy/AdvReac Type Severity Reaction Status Date / Time No Known Allergies Allergy Verified 01/02/23 08:02 Review of Systems ROS Statement: Those systems with pertinent positive or pertinent negative responses have been documented in the HPI. ROS Other: All systems not noted in ROS Statement are negative. Past Medical History Past Medical History: COPD Additional Past Medical History / Comment(s): parkinsons History of Any Multi-Drug Resistant Organisms: None Reported Past Surgical History: Unable to Obtain Past Anesthesia/Blood Transfusion Reactions: Unable to Obtain Smoking Status: Unknown if ever smoked - Past Family History Father History Unknown: Yes Mother History Unknown: Yes General Exam General appearance: alert, in distress Head exam: Present: atraumatic Eye exam: Present: normal appearance, PERRL ENT exam: Present: normal exam Neck exam: Present: normal inspection. Absent: tenderness, meningismus Respiratory exam: Present: respiratory distress, rales, rhonchi Cardiovascular Exam: Present: normal rhythm, tachycardia GI/Abdominal exam: Present: soft. Absent: distended, tenderness Neurological exam: Present: alert Skin exam: Present: cyanosis Course Vital Signs 01/02/23 01/02/23 01/02/23 07:46 08:00 08:03 Temperature 95.2 F L Pulse Rate 141 H 141 H Respiratory 34 H 38 H Rate Blood Pressure 96/64 105/57 O2 Sat by Pulse 72 L 71 L Oximetry Fraction of 100 Inspired Oxygen (FIO2) 01/02/23 01/02/23 01/02/23 08:15 08:30 08:31 Temperature 98.2 F Pulse Rate 138 H 130 H Respiratory 39 H 48 H Rate Blood Pressure 96/23 98/58 O2 Sat by Pulse 69 L 81 L Oximetry Fraction of 100 100 Inspired Oxygen (FIO2) 01/02/23 01/02/23 01/02/23 08:50 09:00 09:15 Temperature 98.2 F Pulse Rate 135 H 131 H Respiratory 45 H 46 H Rate Blood Pressure 86/58 93/67 O2 Sat by Pulse 82 L 90 L Oximetry Fraction of 100 100 100 Inspired Oxygen (FIO2) 01/02/23 01/02/23 01/02/23 09:30 09:45 10:00 Temperature 97.7 F Pulse Rate 130 H 122 H 125 H Respiratory 45 H 55 H 48 H Rate Blood Pressure 105/52 105/90 96/29 O2 Sat by Pulse 91 L 92 L 90 L Oximetry Fraction of 100 100 100 Inspired Oxygen (FIO2) 01/02/23 01/02/23 01/02/23 10:15 10:32 10:45 Temperature 94.6 F L Pulse Rate 118 H 114 H Respiratory 52 H 56 H Rate Blood Pressure 99/42 80/43 80/43 O2 Sat by Pulse 85 L 81 L Oximetry Fraction of 100 100 Inspired Oxygen (FIO2) 01/02/23 01/02/23 01/02/23 11:00 11:15 11:30 Temperature Pulse Rate 117 H 118 H 123 H Respiratory 52 H 50 H 32 H Rate Blood Pressure 80/42 99/82 112/91 O2 Sat by Pulse 79 L 90 L 91 L Oximetry Fraction of 100 100 100 Inspired Oxygen (FIO2) 01/02/23 12:11 Temperature Pulse Rate Respiratory Rate Blood Pressure O2 Sat by Pulse Oximetry Fraction of 100 Inspired Oxygen (FIO2) - Reevaluation(s) Reevaluation #1: 01/02/23 11:19 snf will be contacted regarding CODE STATUS and the current legal proceedings surrounding this. At this time the patient is a full code. Reevaluation #2: 01/02/23 11:30 I did discuss the case with the guardian regarding CODE STATUS and because the patient has developmental delay it is a requirement that the courts are involved with the decision making and he must remain full code at this time. Medical Decision Making - Medical Decision Making Was pt. sent in by a medical professional or institution (, PA, CHARTER SCHOOL EXECUTIVE DIRECTOR, urgent care, hospital, or shelter...) When possible be specific @ -No Did you speak to anyone other than the patient for history (EMS, parent, family, police, friend...)? What history was obtained from this source @ -[Paramedics Did you review nursing and triage notes (agree or disagree)? Why? @ -I reviewed and agree with nursing and triage notes Were old charts reviewed (outside hosp., previous admission, EMS record, old EKG, old radiological studies, urgent care reports/EKG's, shelter records)? Report findings @ -Reviewed previous admission with [place] pneumonia Differential Diagnosis (chest pain, altered mental status, abdominal pain women, abdominal pain men, vaginal bleeding, weakness, fever, dyspnea, syncope, headache, dizziness, GI bleed, back pain, seizure, CVA, palpatations, mental health, musculoskeletal)? @ -Differential Dyspnea: Coronary syndrome, arrhythmia, tamponade, asthma, COPD, pulmonary embolism, pneumonia, pneumothorax, pulmonary effusion, anaphylaxis, diabetic ketoacidosis, flailed chest, pulmonary contusion, diaphragmatic rupture, anemia, neuromuscular, this is not meant to be an all-inclusive list. EKG interpreted by me (3pts min.). @Sinus tachycardia rate of 142 very poor quality EKG, [place] interval 141, QRS dura tion 105, QTC 352 X-rays interpreted by me (1pt min.). @ -[bilateral infiltrate, improved from prior chest x-ray CT interpreted by me (1pt min.). @ -[CT angiography of the chest, negative for central pulmonary embolism U/S interpreted by me (1pt. min.). @ -None done What testing was considered but not performed or refused? (CT, X-rays, U/S, labs)? Why? @ -None What meds were considered but not given or refused? Why? @ -None Did you discuss the management of the patient with other professionals (professionals i.e. DrDu, PA, CHARTER SCHOOL EXECUTIVE DIRECTOR, lab, RT, psych nurse, social insurance analyst, gas station service attendant, teacher, chairman and chief executive officer, shoe caser)? Give summary @ Admitting physician physician Dr. Treadwell and livestock judging coach Dr. Zamora Was smoking cessation discussed for >3mins.? @ -No Was critical care preformed (if so, how long)? @ yes 35 minutes Were there social determinants of health that impacted care today? How? (Homelessness, low income, unemployed, alcoholism, drug addiction, transportation, low edu. Level, literacy, decrease access to med. care, senior living, rehab)? @ -No Was there de-escalation of care discussed even if they declined (Discuss DNR or withdrawal of care, Hospice)? DNR status @ -No What co-morbidities impacted this encounter? (DM, HTN, Smoking, COPD, CAD, Cancer, CVA, ARF, Chemo, Hep., AIDS, mental health diagnosis, sleep apnea, morbid obesity)? @ Schizophrenia, COPD, coronavirus Was patient admitted / discharged? Hospital course, mention meds given and route, prescriptions, significant lab abnormalities, going to OR and other pertinent info. @ -[77-year-old male presenting in extremis, tachycardic, hypoxic, tachypneic. Patient had recent prolonged hospitalization with coronavirus pneumonia. He had been at the shelter for the past several weeks. he has decompensated over the past 24 hours. History is limited. Patient placed on BiPAP, IV established, fluids administered as well as albuterol, steroids, IV antibiotics. He has a significant leukocytosis and does continue test positive for coronavirus. He additionally has signs of urinary tract infection and is treated with cefepime and vancomycin awaiting culture results. He will be admitted to the ICU for close monitoring Undiagnosed new problem with uncertain prognosis? @ -Prognosis is very poor. Drug Therapy requiring intensive monitoring for toxicity (Heparin, Nitro, Insulin, Cardizem)? @ -No Were any procedures done? @ -No Diagnosis/symptom? @ Respiratory failure, sepsis Acute, or Chronic, or Acute on Chronic? @ -[Acute Uncomplicated (without systemic symptoms) or Complicated (systemic symptoms)? @ -[Complicated Side effects of treatment? @ -No Exacerbation, Progression, or Severe Exacerbation? @ -No Poses a threat to life or bodily function? How? (Chest pain, [place], [place], pneumonia, PE, COPD, DKA, ARF, appy, cholecystitis, CVA, Diverticulitis, Homicidal, Suicidal, threat to staff... and all critical care pts) @ -[Yes, respiratory failure, hypoxia, sepsis - Lab Data Result diagrams: 01/03/23 05:54 01/02/23 07:34 Lab Results 01/02/23 01/02/23 01/02/23 Range/Units 07:34 07:34 07:34 WBC 38.4 H (3.8-10.6) k/uL RBC 3.81 L (4.30-5.90) m/uL Hgb 11.7 L (13.0-17.5) gm/dL Hct 37.2 L (39.0-53.0) % MCV 97.6 (80.0-100.0) fL MCH 30.8 (25.0-35.0) pg MCHC 31.5 (31.0-37.0) g/dL RDW 14.4 (11.5-15.5) % Plt Count 483 H D (150-450) k/uL MPV 7.3 Neutrophils % 81 % Lymphocytes % 15 % Monocytes % 3 % Eosinophils % 0 % Basophils % 0 % Neutrophils # 31.0 H (1.3-7.7) k/uL Lymphocytes # 5.8 H (1.0-4.8) k/uL Monocytes # 1.2 H (0-1.0) k/uL Eosinophils # 0.1 (0-0.7) k/uL Basophils # 0.1 (0-0.2) k/uL Manual Slide Review Performed Hypochromasia Slight PT 11.0 (9.0-12.0) sec INR 1.0 (<1.2) APTT 24.9 (22.0-30.0) sec Sodium 144 (137-145) mmol/L Potassium 4.2 (3.5-5.1) mmol/L Chloride 101 (98-107) mmol/L Carbon Dioxide 29 (22-30) mmol/L Anion Gap 14 mmol/L BUN 26 H (9-20) mg/dL Creatinine 1.10 (0.66-1.25) mg/dL Est GFR (CKD-EPI)AfAm 76 (>60 ml/min/1.73 sqM) Est GFR (CKD-EPI)NonAf 65 (>60 ml/min/1.73 sqM) Glucose 181 H (74-99) mg/dL Lactic Ac Sepsis Rflx Plasma Lactic Acid Prince (0.7-2.0) mmol/L Calcium 10.4 H (8.4-10.2) mg/dL Magnesium 1.9 (1.6-2.3) mg/dL Total Bilirubin 0.6 (0.2-1.3) mg/dL AST 27 (17-59) U/L ALT 10 (4-49) U/L Alkaline Phosphatase 121 (38-126) U/L NT-Pro-B Natriuret Pep 2710 pg/mL Total Protein 8.3 H (6.3-8.2) g/dL Albumin 3.4 L (3.5-5.0) g/dL Procalcitonin (0.02-0.09) ng/mL Urine Color Urine Appearance (Clear) Urine pH (5.0-8.0) Ur Specific [place] (1.001-1.035) Urine Protein (Negative) Urine Glucose (UA) (Negative) Urine Ketones (Negative) Urine Blood (Negative) Urine Nitrite (Negative) Urine Bilirubin (Negative) Urine Urobilinogen (<2.0) mg/dL Ur Leukocyte Esterase (Negative) Urine RBC (0-5) /hpf Urine WBC (0-5) /hpf Urine WBC Clumps (None) /hpf Ur Squamous Epith Cells (0-4) /hpf Urine Bacteria (None) /hpf Urine Mucus (None) /hpf Influenza Type A (PCR) (Not Detectd) Influenza Type B (PCR) (Not Detectd) RSV (PCR) (Not Detectd) SARS-CoV-2 (PCR) (Not Detectd) 01/02/23 01/02/23 01/02/23 Range/Units 07:34 07:34 07:34 WBC (3.8-10.6) k/uL RBC (4.30-5.90) m/uL Hgb (13.0-17.5) gm/dL Hct (39.0-53.0) % MCV (80.0-100.0) fL MCH (25.0-35.0) pg MCHC (31.0-37.0) g/dL RDW (11.5-15.5) % Plt Count (150-450) k/uL MPV Neutrophils % % Lymphocytes % % Monocytes % % Eosinophils % % Basophils % % Neutrophils # (1.3-7.7) k/uL Lymphocytes # (1.0-4.8) k/uL Monocytes # (0-1.0) k/uL Eosinophils # (0-0.7) k/uL Basophils # (0-0.2) k/uL Manual Slide Review Hypochromasia PT (9.0-12.0) sec INR (<1.2) APTT (22.0-30.0) sec Sodium (137-145) mmol/L Potassium (3.5-5.1) mmol/L Chloride (98-107) mmol/L Carbon Dioxide (22-30) mmol/L Anion Gap mmol/L BUN (9-20) mg/dL Creatinine (0.66-1.25) mg/dL Est GFR (CKD-EPI)AfAm (>60 ml/min/1.73 sqM) Est GFR (CKD-EPI)NonAf (>60 ml/min/1.73 sqM) Glucose (74-99) mg/dL Lactic Ac Sepsis Rflx Plasma Lactic Acid Prince 5.2 H* (0.7-2.0) mmol/L Calcium (8.4-10.2) mg/dL Magnesium (1.6-2.3) mg/dL Total Bilirubin (0.2-1.3) mg/dL AST (17-59) U/L ALT (4-49) U/L Alkaline Phosphatase (38-126) U/L NT-Pro-B Natriuret Pep pg/mL Total Protein (6.3-8.2) g/dL Albumin (3.5-5.0) g/dL Procalcitonin 0.76 H (0.02-0.09) ng/mL Urine Color Urine Appearance (Clear) Urine pH (5.0-8.0) Ur Specific [place] (1.001-1.035) Urine Protein (Negative) Urine Glucose (UA) (Negative) Urine Ketones (Negative) Urine Blood (Negative) Urine Nitrite (Negative) Urine Bilirubin (Negative) Urine Urobilinogen (<2.0) mg/dL Ur Leukocyte Esterase (Negative) Urine RBC (0-5) /hpf Urine WBC (0-5) /hpf Urine WBC Clumps (None) /hpf Ur Squamous Epith Cells (0-4) /hpf Urine Bacteria (None) /hpf Urine Mucus (None) /hpf Influenza Type A (PCR) Not Detected (Not Detectd) Influenza Type B (PCR) Not Detected (Not Detectd) RSV (PCR) Not Detected (Not Detectd) SARS-CoV-2 (PCR) Detected A (Not Detectd) 01/02/23 01/02/23 Range/Units 08:16 08:49 WBC (3.8-10.6) k/uL RBC (4.30-5.90) m/uL Hgb (13.0-17.5) gm/dL Hct (39.0-53.0) % MCV (80.0-100.0) fL MCH (25.0-35.0) pg MCHC (31.0-37.0) g/dL RDW (11.5-15.5) % Plt Count (150-450) k/uL MPV Neutrophils % % Lymphocytes % % Monocytes % % Eosinophils % % Basophils % % Neutrophils # (1.3-7.7) k/uL Lymphocytes # (1.0-4.8) k/uL Monocytes # (0-1.0) k/uL Eosinophils # (0-0.7) k/uL Basophils # (0-0.2) k/uL Manual Slide Review Hypochromasia PT (9.0-12.0) sec INR (<1.2) APTT (22.0-30.0) sec Sodium (137-145) mmol/L Potassium (3.5-5.1) mmol/L Chloride (98-107) mmol/L Carbon Dioxide (22-30) mmol/L Anion Gap mmol/L BUN (9-20) mg/dL Creatinine (0.66-1.25) mg/dL Est GFR (CKD-EPI)AfAm (>60 ml/min/1.73 sqM) Est GFR (CKD-EPI)NonAf (>60 ml/min/1.73 sqM) Glucose (74-99) mg/dL Lactic Ac Sepsis Rflx Y Plasma Lactic Acid Prince (0.7-2.0) mmol/L Calcium (8.4-10.2) mg/dL Magnesium (1.6-2.3) mg/dL Total Bilirubin (0.2-1.3) mg/dL AST (17-59) U/L ALT (4-49) U/L Alkaline Phosphatase (38-126) U/L NT-Pro-B Natriuret Pep pg/mL Total Protein (6.3-8.2) g/dL Albumin (3.5-5.0) g/dL Procalcitonin (0.02-0.09) ng/mL Urine Color Yellow Urine Appearance Turbid (Clear) Urine pH 5.5 (5.0-8.0) Ur Specific [place] 1.018 (1.001-1.035) Urine Protein 1+ H (Negative) Urine Glucose (UA) Negative (Negative) Urine Ketones Trace H (Negative) Urine Blood Small H (Negative) Urine Nitrite Positive (Negative) Urine Bilirubin Negative (Negative) Urine Urobilinogen <2.0 (<2.0) mg/dL Ur Leukocyte Esterase Large H (Negative) Urine RBC 12 H (0-5) /hpf Urine WBC >182 H (0-5) /hpf Urine WBC Clumps Many H (None) /hpf Ur Squamous Epith Cells 1 (0-4) /hpf Urine Bacteria Few H (None) /hpf Urine Mucus Many H (None) /hpf Influenza Type A (PCR) (Not Detectd) Influenza Type B (PCR) (Not Detectd) RSV (PCR) (Not Detectd) SARS-CoV-2 (PCR) (Not Detectd) Critical Care Time Critical Care Time: Yes Total Critical Care Time: 35 Disposition Clinical Impression: COVID-19, Acute exacerbation of chronic obstructive pulmonary disease, Sepsis, UTI (urinary tract infection) Disposition: ADMITTED IP TO THIS HOSP Condition: Serious Is patient prescribed a controlled substance at d/c from ED?: No Time of Disposition: 10:58
[2023-01-02 08:06] LABS: Basophils # (A) 0.1 k/uL (0-0.2); Basophils % (A) 0 %; Eosinophils # (A) 0.1 k/uL (0-0.7); Eosinophils % (A) 0 %; HCT 37.2 % (39.0-53.0); HGB 11.7 gm/dL (13.0-17.5); Hypochromasia Slight; Lymphocytes # (A) 5.8 k/uL (1.0-4.8); Lymphocytes % (A) 15 %; MCH 30.8 pg (25.0-35.0); MCHC 31.5 g/dL (31.0-37.0); MCV 97.6 fL (80.0-100.0); Mean Platelet Volume 7.3; Monocytes # (A) 1.2 k/uL (0-1.0); Monocytes % (A) 3 %; Neutrophils % (A) 81 %; Platelet Count 483 k/uL (150-450); RBC 3.81 m/uL (4.30-5.90); RDW 14.4 % (11.5-15.5); WBC 38.4 k/uL (3.8-10.6)
[2023-01-02 08:15] LABS: Partial Thromboplastin Time 24.9 sec (22.0-30.0)
[2023-01-02] MEDS ORDERED: CEFEPIME 2 GM in SODIUM CHLORIDE 0.9% 100 ML IVPB STA (08:18)
[2023-01-02 08:24] LABS: ALT 10 U/L (4-49); AST 27 U/L (17-59); African American GFR (CKD) 76 (>60 ml/min/1.73 sqM); Albumin 3.4 g/dL (3.5-5.0); Alkaline Phosphatase 121 U/L (38-126); Anion Gap 14 mmol/L; Blood Urea Nitrogen 26 mg/dL (9-20); Calcium 10.4 mg/dL (8.4-10.2); Carbon Dioxide 29 mmol/L (22-30); Chloride 101 mmol/L (98-107); Glucose 181 mg/dL (74-99); Magnesium 1.9 mg/dL (1.6-2.3); Non-African American GFR(CKD) 65 (>60 ml/min/1.73 sqM); Potassium 4.2 mmol/L (3.5-5.1); Sodium 144 mmol/L (137-145); Total Bilirubin 0.6 mg/dL (0.2-1.3); Total Protein 8.3 g/dL (6.3-8.2)
[2023-01-02 08:32] LABS: NT-Pro-B-Type Natriuretic Pept 2710 pg/mL
[2023-01-02] MEDS: SODIUM CHLORIDE 0.9% 1,000 ML IV SCH ×3 (08:32→23:39)
[2023-01-02 08:42] LABS: Appearance,Urine Turbid (Clear); Bacteria,Urine Few /hpf; Bilirubin,Urine Negative (Negative); Blood,Urine Small (Negative); Color,Urine Yellow; Glucose,Urine (UA) Negative (Negative); Ketones,Urine Trace (Negative); Leukocyte Esterase,Urine Large (Negative); Mucus,Urine Many /hpf; Nitrite,Urine Positive (Negative); PH, Urine 5.5 (5.0-8.0); Protein,Urine 1+ (Negative); RBC,Urine 12 /hpf (0-5); Specific Gravity,Urine 1.018 (1.001-1.035); Squamous Epithelial Cell,Urine 1 /hpf (0-4); Urobilinogen,Urine <2.0 mg/dL (<2.0); WBC,Urine >182 /hpf (0-5)
--- NOTE | 2023-01-02 08:43 | XR ---
EXAMINATION TYPE: XR chest 1V portable DATE OF EXAM: 01/02/2023 COMPARISON: 12/04/2022 HISTORY: Shortness of breath TECHNIQUE: Single frontal view of the chest is obtained. FINDINGS: Bilateral basilar subsegmental consolidation. Underlying COPD. Bilateral shoulder arthropa thy. Hyperinflation of the lungs. No overt failure or pneumothorax. Hypertrophic and degenerative javier nges spine. Stomach is distended IMPRESSION: 1. Bilateral lower lobe infiltrate is markedly improved with minimal bilateral subsegmental residual consolidation. 2. Prominent air collection in the upper abdomen most likely related to gastric distention. Consider abdominal x-ray if the patient has abdominal symptoms..
[2023-01-02] MEDS ORDERED: SODIUM CHLORIDE 0.9% 500 ML 500 ML IV ONE ×2 (08:52→11:04)
[2023-01-02] MEDS: ALBUTEROL HFA INHALER INHALATION SCH ×4 (09:20→20:00)
--- NOTE | 2023-01-02 10:43 | CT ---
EXAMINATION TYPE: CT angio chest CT DLP: 231.4 mGycm, Automated exposure control for dose reduction was used. DATE OF EXAM: 01/02/2023 10:32 AM COMPARISON: Chest radiograph from same day. CLINICAL INDICATION:Male, 77 years old with history of petar; +covid, SOB TECHNIQUE/CONTRAST: CTA scan of the thorax is performed with IV Contrast, patient injected with 80cc mL of Isovue 370, pu lmonary embolism protocol. MIP images are created and reviewed. FINDINGS: Pulmonary Artery: There is no evidence for a central filling defect within the pulmonary vasculature to suggest acute pulmonary embolism. Limited evaluation of the segmental and subsegmental branches se condary to bolus timing. The pulmonary artery is of normal size. Lungs/Pleura: No pleural effusion or pneumothorax. Patchy groundglass and consolidative opacities wit hin the bilateral lower lobes right greater than left. Additional patchy groundglass opacities within the right upper lobe. Scarring within the anterior right middle lobe. Airway: Large airways are patent. Heart: Heart is within normal limits for size.. No pericardial effusion. Vasculature: No evidence of aortic aneurysm. Mild atelectatic calcification of the aorta and its bran ches. Four-vessel aortic arch. Mediastinum: Enlarged right hilar and subcarinal adenopathy. Musculoskeletal: No acute osseous abnormalities. Findings compatible with DISH. Soft Tissues: Bilateral gynecomastia. Lower neck: No significant findings. Upper Abdomen: No significant findings. IMPRESSION: 1. No evidence of central pulmonary embolism. Limited evaluation of the segmental and subsegmental br anches. 2. Patchy groundglass and consolidative opacities within the bilateral lower lobes , right greater th an left. Additional patchy groundglass opacities within the right upper lobe. Findings compatible wit h reported COVID infection. 3. Reactive mediastinal and right hilar lymphadenopathy likely secondary to #2.
[2023-01-02] MEDS ORDERED: VANCOMYCIN IV PER PHARMACY 1 EACH MISC MISCELLANE PRN (10:45)
[2023-01-02] MEDS ORDERED: NALOXONE 0.4 MG/ML 1 ML VIAL IV PRN (10:51)
[2023-01-02] MEDS ORDERED: VANCOMYCIN 1,000 MG in SODIUM CHLORIDE 0.9% 250 ML IVPB STA (10:52)
[2023-01-02 11:41] LABS: ABG Base Excess 1.6 mmol/L; ABG HCO3 29 mmol/L (21-25); ABG PCO2 66 mmHg (35-45); ABG PH 7.25 (7.35-7.45); ABG PO2 74 mmHg (83-108); ABG TCO2 31 mmol/L (19-24); Allen Test Performed? Yes
[2023-01-02] MEDS: methylPREDNISolone SOD SUCCI 125 MG/2 ML VIAL IV SCH ×3 (11:49→23:39)
[2023-01-02 12:33] LABS: Glucose,Whole Blood 134 mg/dL (70-110)
--- NOTE | 2023-01-02 13:36 | P.HPIM ---
History of Present Illness H&P Date: 01/02/23 History of present illness; Patient is a 77-year-old male with past medical history significant for COPD, hypertension, hyperlipidemia, Parkinson's disease, and schizophrenia who is a resident of [facility] brought in the ER for worsening shortness of breath. Patient was recently discharged from the hospital after being treated for acute respiratory failure and COVID-19 infection. Patient is a poor historian, most of the H&P is taken from the electronic medical records. According that patient has been having worsening shortness of breath for the last few days. No complaint of orthopnea or PND. No Chest pain. No complaint of fevers. Patient has poor appetite. Because the symptoms, patient came to the ER Initial lab work done in the ER showed WBC 38.4, hemoglobin 11.7, platelet count 483, sodium 144, potassium 4.2, BUN 26, creatinine 1.10, lactate 5.2, calcium 10.4, UA shows leukocyte esterase large amount, urine nitrite positive WBC greater than 182 Chest x-ray showed bilateral lower lobe infiltrate, improved with minimal b ilateral subsegmental consolidation CTA chest negative for PE Patient was admitted to medicine service REVIEW OF SYSTEMS: Review of systems cannot be obtained patient is currently on BiPAP PHYSICAL EXAMINATION: GENERAL: The patient is alert, chronically ill-looking HEENT: Pupils are round and equally reacting to light. EOMI. No scleral icterus. No conjunctival pallor. Normocephalic, atraumatic. No pharyngeal erythema. No thyromegaly. CARDIOVASCULAR: S1 and S2 present. No murmurs, rubs, or gallops. PULMONARY: Tachypneic, coarse breath some bilaterally, diminished at the bases ABDOMEN: Soft, nontender, nondistended, normoactive bowel sounds. No palpable organomegaly. MUSCULOSKELETAL: No joint swelling or deformity. EXTREMITIES: No cyanosis, clubbing, or pedal edema. NEUROLOGICAL: Gross neurological examination did not reveal any focal deficits. Following commands SKIN: No rashes. Assessment and plan Sepsis UTI COVID-19 infection Bacterial pneumonia Acute on chronic hypoxemic respiratory failure Chronic obstructive pulmonary disease Essential hypertension Hyperlipidemia Parkinson's disease Onychomycosis Developmental delay/cognitive impairment Monitor vital signs Monitor CBC Monitor CMP Continue telemetry monitoring Follow-up on blood cultures Follow-up on urine cultures Continue BiPAP as needed Aggressive bronchopulmonary hygiene Continue IV cefepime and vancomycin Continue Solu-Medrol Consulted pulmonary consult ID Patient be going to ICU CODE STATUS is full code, patient has state appointed guardian. Patient has poor prognosis, currently requiring BiPAP, patient will be a poor candidate for extubation if patient gets intubated, will recommend CODE STATUS is to be changed to DO NOT RESUSCITATE Labs and medication were reviewed.. Continue same treatment. Continue with symptomatic treatment. Resume home medication. Monitor labs and vitals. DVT and GI prophylaxis. Further recommendations as per clinical course of the patient Dictation was produced using [employer] dictation software. please excuse any grammatical, word or spelling errors. Past Medical History Past Medical History: COPD Additional Past Medical History / Comment(s): parkinsons History of Any Multi-Drug Resistant Organisms: None Reported Past Surgical History: Unable to Obtain Past Anesthesia/Blood Transfusion Reactions: Unable to Obtain Smoking Status: Unknown if ever smoked - Past Family History Father History Unknown: Yes Mother History Unknown: Yes Medications and Allergies Home Medications Medication Instructions Recorded Confirmed Type Atenolol/Chlorthalidone [Tenoretic 0.5 tab PO HS 08/19/16 01/02/23 History 50 Tablet] Divalproex Sodium [Depakote] 500 mg PO BID 08/19/16 01/02/23 History allopurinoL [Zyloprim] 100 mg PO HS 08/19/16 01/02/23 History Acetaminophen Tab [Tylenol] 650 mg PO Q6H PRN 11/27/22 01/02/23 History Atorvastatin Calcium [Lipitor] 80 mg PO HS 11/27/22 01/02/23 History Healthshake 1 dose PO BID 11/27/22 01/02/23 History Multivitamins, Thera [Multivitamin 1 tab PO DAILY 11/27/22 01/02/23 History (formulary)] Sennosides/Docusate Sodium [Senna 1 tab PO BID 11/27/22 01/02/23 History Plus 8.6-50 mg Tablet] Albuterol Inhaler [Ventolin Hfa 2 puff INHALATION RT-QID 30 Days 12/05/22 01/02/23 Rx Inhaler] #1 dispenser Tiotropium 2.5 Mcg/Puff [Spiriva 1 puff INHALATION RT-DAILY #30 each 12/05/22 01/02/23 Rx Respimat 2.5 Mcg] Carbidopa-Levodopa ER 50-200Mg 1 tab PO TID@0800,1200,1800 01/02/23 01/02/23 History [Sinemet CR 50-200 mg] Levothyroxine Sodium [Synthroid] 50 mcg PO DAILY 01/02/23 01/02/23 History bisacodyL 10 mg RECTAL DAILY PRN 01/02/23 01/02/23 History droNABinol [Marinol] 2.5 mg PO BID 01/02/23 01/02/23 History Allergies Allergy/AdvReac Type Severity Reaction Status Date / Time No Known Allergies Allergy Verified 01/02/23 08:02 Physical Exam Vitals: Vital Signs Temp Pulse Resp BP Pulse Ox FiO2 01/02/23 13:00 128 H 43 H 88 L 01/02/23 12:45 129 H 36 H 126/76 01/02/23 12:30 97.2 F L 129 H 44 H 100 01/02/23 12:20 98.1 F 114 H 45 H 91/81 97 01/02/23 12:11 100 01/02/23 11:30 123 H 32 H 112/91 91 L 100 01/02/23 11:15 118 H 50 H 99/82 90 L 100 01/02/23 11:00 117 H 52 H 80/42 79 L 100 01/02/23 10:45 114 H 56 H 80/43 81 L 100 01/02/23 10:32 94.6 F L 118 H 52 H 80/43 85 L 01/02/23 10:15 99/42 100 01/02/23 10:00 125 H 48 H 96/29 90 L 100 01/02/23 09:45 122 H 55 H 105/90 92 L 100 01/02/23 09:30 97.7 F 130 H 45 H 105/52 91 L 100 01/02/23 09:15 131 H 46 H 93/67 90 L 100 01/02/23 09:00 98.2 F 135 H 45 H 86/58 82 L 100 01/02/23 08:50 100 01/02/23 08:31 98.2 F 01/02/23 08:30 130 H 48 H 98/58 81 L 100 01/02/23 08:15 138 H 39 H 96/23 69 L 100 01/02/23 08:03 95.2 F L 01/02/23 08:00 141 H 38 H 105/57 71 L 100 01/02/23 07:46 141 H 34 H 96/64 72 L Intake and Output 01/01/23 01/02/23 01/02/23 22:59 06:59 14:59 Output Total 20 Balance -20 Output: Urine 20 Uretheral (Sofia) 20 Other: Weight 54.431 kg Results CBC & Chem 7: 01/02/23 07:34 01/02/23 07:34 Labs: Abnormal Lab Results - Last 24 Hours (Table) 01/02/23 01/02/23 01/02/23 Range/Units 07:34 07:34 07:34 WBC 38.4 H (3.8-10.6) k/uL RBC 3.81 L (4.30-5.90) m/uL Hgb 11.7 L (13.0-17.5) gm/dL Hct 37.2 L (39.0-53.0) % Plt Count 483 H D (150-450) k/uL Neutrophils # 31.0 H (1.3-7.7) k/uL Lymphocytes # 5.8 H (1.0-4.8) k/uL Monocytes # 1.2 H (0-1.0) k/uL ABG pH (7.35-7.45) ABG pCO2 (35-45) mmHg ABG pO2 (83-108) mmHg ABG HCO3 (21-25) mmol/L ABG Total CO2 (19-24) mmol/L ABG O2 Saturation (94-97) % BUN 26 H (9-20) mg/dL Glucose 181 H (74-99) mg/dL POC Glucose (mg/dL) (70-110) mg/dL Plasma Lactic Acid Prince 5.2 H* (0.7-2.0) mmol/L Calcium 10.4 H (8.4-10.2) mg/dL Total Protein 8.3 H (6.3-8.2) g/dL Albumin 3.4 L (3.5-5.0) g/dL Urine Protein (Negative) Urine Ketones (Negative) Urine Blood (Negative) Ur Leukocyte Esterase (Negative) Urine RBC (0-5) /hpf Urine WBC (0-5) /hpf Urine WBC Clumps (None) /hpf Urine Bacteria (None) /hpf Urine Mucus (None) /hpf SARS-CoV-2 (PCR) (Not Detectd) 01/02/23 01/02/23 01/02/23 Range/Units 07:34 08:16 11:37 WBC (3.8-10.6) k/uL RBC (4.30-5.90) m/uL Hgb (13.0-17.5) gm/dL Hct (39.0-53.0) % Plt Count (150-450) k/uL Neutrophils # (1.3-7.7) k/uL Lymphocytes # (1.0-4.8) k/uL Monocytes # (0-1.0) k/uL ABG pH 7.25 L (7.35-7.45) ABG pCO2 66 H (35-45) mmHg ABG pO2 74 L (83-108) mmHg ABG HCO3 29 H (21-25) mmol/L ABG Total CO2 31 H (19-24) mmol/L ABG O2 Saturation 90.0 L (94-97) % BUN (9-20) mg/dL Glucose (74-99) mg/dL POC Glucose (mg/dL) (70-110) mg/dL Plasma Lactic Acid Prince (0.7-2.0) mmol/L Calcium (8.4-10.2) mg/dL Total Protein (6.3-8.2) g/dL Albumin (3.5-5.0) g/dL Urine Protein 1+ H (Negative) Urine Ketones Trace H (Negative) Urine Blood Small H (Negative) Ur Leukocyte Esterase Large H (Negative) Urine RBC 12 H (0-5) /hpf Urine WBC >182 H (0-5) /hpf Urine WBC Clumps Many H (None) /hpf Urine Bacteria Few H (None) /hpf Urine Mucus Many H (None) /hpf SARS-CoV-2 (PCR) Detected A (Not Detectd) 01/02/23 01/02/23 Range/Units 11:39 12:31 WBC (3.8-10.6) k/uL RBC (4.30-5.90) m/uL Hgb (13.0-17.5) gm/dL Hct (39.0-53.0) % Plt Count (150-450) k/uL Neutrophils # (1.3-7.7) k/uL Lymphocytes # (1.0-4.8) k/uL Monocytes # (0-1.0) k/uL ABG pH (7.35-7.45) ABG pCO2 (35-45) mmHg ABG pO2 (83-108) mmHg ABG HCO3 (21-25) mmol/L ABG Total CO2 (19-24) mmol/L ABG O2 Saturation (94-97) % BUN (9-20) mg/dL Glucose (74-99) mg/dL POC Glucose (mg/dL) 134 H (70-110) mg/dL Plasma Lactic Acid Prince 3.3 H* (0.7-2.0) mmol/L Calcium (8.4-10.2) mg/dL Total Protein (6.3-8.2) g/dL Albumin (3.5-5.0) g/dL Urine Protein (Negative) Urine Ketones (Negative) Urine Blood (Negative) Ur Leukocyte Esterase (Negative) Urine RBC (0-5) /hpf Urine WBC (0-5) /hpf Urine WBC Clumps (None) /hpf Urine Bacteria (None) /hpf Urine Mucus (None) /hpf SARS-CoV-2 (PCR) (Not Detectd)
--- NOTE | 2023-01-02 14:30 | P.CNPUL ---
History of Present Illness Consult date: 01/02/23 Requesting physician: Angelo Treadwell Reason for consult: dyspnea, hypoxemia, abnormal CXR/CT Chief complaint: Respiratory distress, hypoxemia History of present illness: This is a 77-year-old male with past medical history significant for COPD, hypertension, hyperlipidemia, Parkinson's disease, and schizophrenia. [facility]. He has a legal guardian. He was discharged from here on 12/05/2022 after an acute hypoxemic respiratory failure episode secondary to COVID-19 infection and suspected aspiration. He was brought back to the emergency room early this morning after again being found to have low O2 saturations and respiratory distress. The patient himself is able to answer simple questions and follow basic commands. Otherwise a poor historian. Asked x-ray showed bilateral lower lobe infiltrates that were actually improved compared to the previous on 12/04/2022. Prominent air collection in the upper abdomen most likely related to gastric distention. CT angiogram ruled out pulmonary embolism. There is patchy groundglass and consolidative opacities in the bilateral lower lobes right greater than left. Additional patchy groundglass opacity in the right upper lobe. Reactive mediastinal and right hilar lymphadenopathy. He required BiPAP support currently 12/5 in the 100% FiO2. He has normal saline and 130 ML's per hour. White count 38.4. Hemoglobin 11.7. Platelets 483. Sodium 144. Potassium 4.2. Bicarb 29. BUN 26. Creatinine 1.10. Glucose 181. Lactic acid 5.2. ProBNP 2710. Urinalysis with large white count and few bacteria. Influenza screen negative. RSV screen negative. COVID-19 screen positive. Arterial blood gases on her percent FiO2 revealed a pO2 of 74, pCO2 66 and a pH of 7.25. He is seen today in consultation in the intensive care unit. He is awake. Able to state his name. He is tachycardic in the 120s. He is tachypneic in the 30s. Blood pressure stable. His received 2 L of fluid resuscitation. He is been given vancomycin and cefepime. Receiving bronchodilators. Review of Systems ROS unobtainable: due to mental status Past Medical History Past Medical History: COPD Additional Past Medical History / Comment(s): parkinsons History of Any Multi-Drug Resistant Organisms: None Reported Past Surgical History: Unable to Obtain Past Anesthesia/Blood Transfusion Reactions: Unable to Obtain Smoking Status: Unknown if ever smoked - Past Family History Father History Unknown: Yes Mother History Unknown: Yes Medications and Allergies Home Medications Medication Instructions Recorded Confirmed Type Atenolol/Chlorthalidone [Tenoretic 0.5 tab PO HS 08/19/16 01/02/23 History 50 Tablet] Divalproex Sodium [Depakote] 500 mg PO BID 08/19/16 01/02/23 History allopurinoL [Zyloprim] 100 mg PO HS 08/19/16 01/02/23 History Acetaminophen Tab [Tylenol] 650 mg PO Q6H PRN 11/27/22 01/02/23 History Atorvastatin Calcium [Lipitor] 80 mg PO HS 11/27/22 01/02/23 History Healthshake 1 dose PO BID 11/27/22 01/02/23 History Multivitamins, Thera [Multivitamin 1 tab PO DAILY 11/27/22 01/02/23 History (formulary)] Sennosides/Docusate Sodium [Senna 1 tab PO BID 11/27/22 01/02/23 History Plus 8.6-50 mg Tablet] Albuterol Inhaler [Ventolin Hfa 2 puff INHALATION RT-QID 30 Days 12/05/22 01/02/23 Rx Inhaler] #1 dispenser Tiotropium 2.5 Mcg/Puff [Spiriva 1 puff INHALATION RT-DAILY #30 each 12/05/22 01/02/23 Rx Respimat 2.5 Mcg] Carbidopa-Levodopa ER 50-200Mg 1 tab PO TID@0800,1200,1800 01/02/23 01/02/23 History [Sinemet CR 50-200 mg] Levothyroxine Sodium [Synthroid] 50 mcg PO DAILY 01/02/23 01/02/23 History bisacodyL 10 mg RECTAL DAILY PRN 01/02/23 01/02/23 History droNABinol [Marinol] 2.5 mg PO BID 01/02/23 01/02/23 History Allergies Allergy/AdvReac Type Severity Reaction Status Date / Time No Known Allergies Allergy Verified 01/02/23 08:02 Physical Exam Vitals: Vital Signs Temp Pulse Resp BP Pulse Ox FiO2 01/02/23 13:00 128 H 43 H 88 L 01/02/23 12:45 129 H 36 H 126/76 01/02/23 12:30 97.2 F L 129 H 44 H 100 01/02/23 12:20 98.1 F 114 H 45 H 91/81 97 01/02/23 12:11 100 01/02/23 11:30 123 H 32 H 112/91 91 L 100 01/02/23 11:15 118 H 50 H 99/82 90 L 100 01/02/23 11:00 117 H 52 H 80/42 79 L 100 01/02/23 10:45 114 H 56 H 80/43 81 L 100 01/02/23 10:32 94.6 F L 118 H 52 H 80/43 85 L 01/02/23 10:15 99/42 100 01/02/23 10:00 125 H 48 H 96/29 90 L 100 01/02/23 09:45 122 H 55 H 105/90 92 L 100 01/02/23 09:30 97.7 F 130 H 45 H 105/52 91 L 100 01/02/23 09:15 131 H 46 H 93/67 90 L 100 01/02/23 09:00 98.2 F 135 H 45 H 86/58 82 L 100 01/02/23 08:50 100 01/02/23 08:31 98.2 F 01/02/23 08:30 130 H 48 H 98/58 81 L 100 01/02/23 08:15 138 H 39 H 96/23 69 L 100 01/02/23 08:03 95.2 F L 01/02/23 08:00 141 H 38 H 105/57 71 L 100 01/02/23 07:46 141 H 34 H 96/64 72 L Intake and Output 01/01/23 01/02/23 01/02/23 22:59 06:59 14:59 Intake Total 255 Output Total 135 Balance 120 Intake: IV 255 Sodium Chloride 0.9% 1, 130 000 ml @ 130 mls/hr IV . Q7H42M [facility] Rx#:[id number] Vancomycin 1,000 mg In 125 Sodium Chloride 0.9% 250 ml @ 125 mls/hr IVPB Q24H [facility] Rx#:[id number] Output: Urine 135 Uretheral (Sofia) 20 Other: Voiding Method Indwelling Catheter Weight 54.431 kg GENERAL EXAM: Alert, oriented times one, pleasant 77-year-old male on BiPAP 04/02 in 100% FiO2, fairly comfortable in no apparent distress. HEAD: Normocephalic. EYES: Normal reaction of pupils, equal size. NOSE: Clear with pink turbinates. THROAT: No erythema or exudates. NECK: No masses, no JVD. CHEST: No chest wall deformity. LUNGS: Equal air entry with bilateral scattered rhonchi. CVS: S1 and S2 normal with no audible murmur, regular rhythm. ABDOMEN: No hepatosplenomegaly, normal bowel sounds, no guarding or rigidity. SPINE: No scoliosis or deformity SKIN: No rashes CENTRAL NERVOUS SYSTEM: No focal deficits, oriented times one, tone is normal in all 4 extremities. EXTREMITIES: Bilateral toenail onychomycosis. There is no peripheral edema. No clubbing, no cyanosis. Peripheral pulses are intact. Results - Laboratory Findings CBC and BMP: 01/02/23 07:34 01/02/23 07:34 ABG ABG pH 7.25 (7.35-7.45) L 01/02/23 11:37 ABG pCO2 66 mmHg (35-45) H 01/02/23 11:37 ABG pO2 74 mmHg (83-108) L 01/02/23 11:37 ABG O2 Saturation 90.0 % (94-97) L 01/02/23 11:37 PT/INR, D-dimer PT 11.0 sec (9.0-12.0) 01/02/23 07:34 INR 1.0 (<1.2) 01/02/23 07:34 Abnormal lab findings: Abnormal Labs 01/02/23 01/02/23 01/02/23 07:34 07:34 07:34 WBC 38.4 H RBC 3.81 L Hgb 11.7 L Hct 37.2 L Plt Count 483 H D Neutrophils # 31.0 H Lymphocytes # 5.8 H Monocytes # 1.2 H ABG pH ABG pCO2 ABG pO2 ABG HCO3 ABG Total CO2 ABG O2 Saturation BUN 26 H Glucose 181 H POC Glucose (mg/dL) Plasma Lactic Acid Prince 5.2 H* Calcium 10.4 H Total Protein 8.3 H Albumin 3.4 L Urine Protein Urine Ketones Urine Blood Ur Leukocyte Esterase Urine RBC Urine WBC Urine WBC Clumps Urine Bacteria Urine Mucus SARS-CoV-2 (PCR) 01/02/23 01/02/23 01/02/23 07:34 08:16 11:37 WBC RBC Hgb Hct Plt Count Neutrophils # Lymphocytes # Monocytes # ABG pH 7.25 L ABG pCO2 66 H ABG pO2 74 L ABG HCO3 29 H ABG Total CO2 31 H ABG O2 Saturation 90.0 L BUN Glucose POC Glucose (mg/dL) Plasma Lactic Acid Prince Calcium Total Protein Albumin Urine Protein 1+ H Urine Ketones Trace H Urine Blood Small H Ur Leukocyte Esterase Large H Urine RBC 12 H Urine WBC >182 H Urine WBC Clumps Many H Urine Bacteria Few H Urine Mucus Many H SARS-CoV-2 (PCR) Detected A 01/02/23 01/02/23 11:39 12:31 WBC RBC Hgb Hct Plt Count Neutrophils # Lymphocytes # Monocytes # ABG pH ABG pCO2 ABG pO2 ABG HCO3 ABG Total CO2 ABG O2 Saturation BUN Glucose POC Glucose (mg/dL) 134 H Plasma Lactic Acid Prince 3.3 H* Calcium Total Protein Albumin Urine Protein Urine Ketones Urine Blood Ur Leukocyte Esterase Urine RBC Urine WBC Urine WBC Clumps Urine Bacteria Urine Mucus SARS-CoV-2 (PCR) - Diagnostic Findings Chest x-ray: image reviewed CT scan - chest: image reviewed Assessment and Plan Assessment: Acute hypoxemic respiratory failure secondary to COVID-19 infection and possible aspiration. Currently on a BiPAP 12/5 and 100% FiO2. Patient did test positive for COVID-19. Acute urinary tract infection Leukocytosis secondary to above Lactic acidosis secondary to above Recent admission from 11/27 - 12/05/2022 for COVID-19 pneumonia and/or aspiration Chronic obstructive pulmonary disease, appears stable Essential hypertension Hyperlipidemia Parkinson's disease Bilateral toe onychomycosis Plan: The patient was seen and evaluated Chest x-ray, computed tomography scan, ABGs, labs and medications reviewed Continue vancomycin and cefepime Blood, sputum, urine cultures pending Procalcitonin pending Continue bronchodilators, steroids Titrate the FiO2 as tolerated Patient's overall prognosis remains poor Should be considered for DO NOT RESUSCITATE/DO NOT INTUBATE CODE STATUS We plan to talk to the legal guardian We will continue to follow and make further recommendations based on his clinical status 2I have personally seen and examined the patient, performed the documentation and the assessment and plan as written. Number of minutes spent on the visit: 20.
[2023-01-02] MEDS ORDERED: ACETAMINOPHEN TAB 325 MG TAB PO PRN (15:17)
[2023-01-02] MEDS ORDERED: bisacodyL 10 MG SUPP RECTAL PRN (15:17)
[2023-01-02] MEDS: CARBIDOPA-LEVODOPA ER 50-200MG 1 EACH TABLET.ER PO SCH (18:14)
[2023-01-02] MEDS: atenoloL 25 MG TAB PO SCH (20:32)
[2023-01-02] MEDS: CHLORTHALIDONE 25 MG TAB PO SCH (20:32)
[2023-01-02] MEDS: droNABinol 2.5 MG CAP PO SCH (20:33)
[2023-01-02] MEDS: ATORVASTATIN 80 MG TAB PO SCH (20:44)
[2023-01-02] MEDS: SENNOSIDES-DOCUSATE SODIUM 1 EACH TAB PO SCH (20:44)
[2023-01-02] MEDS: CEFEPIME 2 GM in SODIUM CHLORIDE 0.9% 100 ML IVPB SCH (20:45)
[2023-01-02] MEDS ORDERED: NON FORMULARY DRUG (Healthshake 1 DOSE) PO SCH (21:00)
[2023-01-02] MEDS: DIVALPROEX 500 MG TABLET.DR PO SCH (21:35)
[2023-01-02] MEDS: allopurinoL 100 MG TAB PO SCH (21:35)
--- NOTE | 2023-01-02 22:13 | P.CONS ---
History of Present Illness - Reason for Consult Consult date: 01/02/23 - History of Present Illness Patient is a 77-year-old male patient with multiple comorbidities including COPD hypertension hyperlipidemia Parkinson disease long term resident who was admitted to this facility in 2022 treated for COVID-19 pneumonia patient has been brought back to the hospital of the patient was noticed to be respiratory distress and low O2 sats apparently symptom has been getting worse over the last few days no clear history of any fever or chills on presentation to hospital patient was hypothermic with a temperature 95.2 patient was hypoxic with O2 sats of 72% on room air currently patient is on BiPAP satting around 90% patient did have white count of 38.4 with a left shift creatinine 1.10 lactic acid 5.2, procalcitonin level is 0.76 urine is positive COVID test, positive influenza RSV was negative patient did have a chest x-ray bilateral lower lobe repeated patient also have a CT angiogram of the chest that was negative for PE did shows patchy groundglass consolidative density within bilateral lower lobes right greater than the left patient has been admitted to ICU on BiPAP currently on a combination of cefepime and vancomycin infectious disease was consulted for further management of antibiotic therapy most information has been obtained from reviewing the chart of the nursing staff as the patient is currently lethargic and not a good historian Past Medical History Past Medical History: COPD Additional Past Medical History / Comment(s): parkinsons History of Any Multi-Drug Resistant Organisms: None Reported Past Surgical History: Unable to Obtain Past Anesthesia/Blood Transfusion Reactions: Unable to Obtain Smoking Status: Unknown if ever smoked - Past Family History Father History Unknown: Yes Mother History Unknown: Yes Medications and Allergies Home Medications Medication Instructions Recorded Confirmed Type Atenolol/Chlorthalidone [Tenoretic 0.5 tab PO HS 08/19/16 01/02/23 History 50 Tablet] Divalproex Sodium [Depakote] 500 mg PO BID 08/19/16 01/02/23 History allopurinoL [Zyloprim] 100 mg PO HS 08/19/16 01/02/23 History Acetaminophen Tab [Tylenol] 650 mg PO Q6H PRN 11/27/22 01/02/23 History Atorvastatin Calcium [Lipitor] 80 mg PO HS 11/27/22 01/02/23 History Healthshake 1 dose PO BID 11/27/22 01/02/23 History Multivitamins, Thera [Multivitamin 1 tab PO DAILY 11/27/22 01/02/23 History (formulary)] Sennosides/Docusate Sodium [Senna 1 tab PO BID 11/27/22 01/02/23 History Plus 8.6-50 mg Tablet] Albuterol Inhaler [Ventolin Hfa 2 puff INHALATION RT-QID 30 Days 12/05/22 01/02/23 Rx Inhaler] #1 dispenser Tiotropium 2.5 Mcg/Puff [Spiriva 1 puff INHALATION RT-DAILY #30 each 12/05/22 01/02/23 Rx Respimat 2.5 Mcg] Carbidopa-Levodopa ER 50-200Mg 1 tab PO TID@0800,1200,1800 01/02/23 01/02/23 History [Sinemet CR 50-200 mg] Levothyroxine Sodium [Synthroid] 50 mcg PO DAILY 01/02/23 01/02/23 History bisacodyL 10 mg RECTAL DAILY PRN 01/02/23 01/02/23 History droNABinol [Marinol] 2.5 mg PO BID 01/02/23 01/02/23 History Allergies Allergy/AdvReac Type Severity Reaction Status Date / Time No Known Allergies Allergy Verified 01/02/23 08:02 Physical Exam Vitals: Vital Signs Temp Pulse Resp BP Pulse Ox FiO2 01/02/23 11:30 123 H 32 H 112/91 91 L 100 01/02/23 11:15 118 H 50 H 99/82 90 L 100 01/02/23 11:00 117 H 52 H 80/42 79 L 100 01/02/23 10:45 114 H 56 H 80/43 81 L 100 01/02/23 10:32 94.6 F L 118 H 52 H 80/43 85 L 01/02/23 10:15 99/42 100 01/02/23 10:00 125 H 48 H 96/29 90 L 100 01/02/23 09:45 122 H 55 H 105/90 92 L 100 01/02/23 09:30 97.7 F 130 H 45 H 105/52 91 L 100 01/02/23 09:15 131 H 46 H 93/67 90 L 100 01/02/23 09:00 98.2 F 135 H 45 H 86/58 82 L 100 01/02/23 08:50 100 01/02/23 08:31 98.2 F 01/02/23 08:30 130 H 48 H 98/58 81 L 100 01/02/23 08:15 138 H 39 H 96/23 69 L 100 01/02/23 08:03 95.2 F L 01/02/23 08:00 141 H 38 H 105/57 71 L 100 01/02/23 07:50 100 01/02/23 07:46 141 H 34 H 96/64 72 L Intake and Output 01/01/23 01/02/23 01/02/23 22:59 06:59 14:59 Output Total 20 Balance -20 Output: Urine 20 Uretheral (Sofia) 20 Other: Weight 54.431 kg Results CBC & Chem 7: 01/04/23 05:55 01/04/23 05:55 Labs: Abnormal Lab Results - Last 24 Hours (Table) 01/02/23 01/02/23 01/02/23 Range/Units 07:34 07:34 07:34 WBC 38.4 H (3.8-10.6) k/uL RBC 3.81 L (4.30-5.90) m/uL Hgb 11.7 L (13.0-17.5) gm/dL Hct 37.2 L (39.0-53.0) % Plt Count 483 H D (150-450) k/uL Neutrophils # 31.0 H (1.3-7.7) k/uL Lymphocytes # 5.8 H (1.0-4.8) k/uL Monocytes # 1.2 H (0-1.0) k/uL ABG pH (7.35-7.45) ABG pCO2 (35-45) mmHg ABG pO2 (83-108) mmHg ABG HCO3 (21-25) mmol/L ABG Total CO2 (19-24) mmol/L ABG O2 Saturation (94-97) % BUN 26 H (9-20) mg/dL Glucose 181 H (74-99) mg/dL Plasma Lactic Acid Prince 5.2 H* (0.7-2.0) mmol/L Calcium 10.4 H (8.4-10.2) mg/dL Total Protein 8.3 H (6.3-8.2) g/dL Albumin 3.4 L (3.5-5.0) g/dL Urine Protein (Negative) Urine Ketones (Negative) Urine Blood (Negative) Ur Leukocyte Esterase (Negative) Urine RBC (0-5) /hpf Urine WBC (0-5) /hpf Urine WBC Clumps (None) /hpf Urine Bacteria (None) /hpf Urine Mucus (None) /hpf SARS-CoV-2 (PCR) (Not Detectd) 01/02/23 01/02/23 01/02/23 Range/Units 07:34 08:16 11:37 WBC (3.8-10.6) k/uL RBC (4.30-5.90) m/uL Hgb (13.0-17.5) gm/dL Hct (39.0-53.0) % Plt Count (150-450) k/uL Neutrophils # (1.3-7.7) k/uL Lymphocytes # (1.0-4.8) k/uL Monocytes # (0-1.0) k/uL ABG pH 7.25 L (7.35-7.45) ABG pCO2 66 H (35-45) mmHg ABG pO2 74 L (83-108) mmHg ABG HCO3 29 H (21-25) mmol/L ABG Total CO2 31 H (19-24) mmol/L ABG O2 Saturation 90.0 L (94-97) % BUN (9-20) mg/dL Glucose (74-99) mg/dL Plasma Lactic Acid Prince (0.7-2.0) mmol/L Calcium (8.4-10.2) mg/dL Total Protein (6.3-8.2) g/dL Albumin (3.5-5.0) g/dL Urine Protein 1+ H (Negative) Urine Ketones Trace H (Negative) Urine Blood Small H (Negative) Ur Leukocyte Esterase Large H (Negative) Urine RBC 12 H (0-5) /hpf Urine WBC >182 H (0-5) /hpf Urine WBC Clumps Many H (None) /hpf Urine Bacteria Few H (None) /hpf Urine Mucus Many H (None) /hpf SARS-CoV-2 (PCR) Detected A (Not Detectd) Assessment and Plan Plan: 1patient presented to the hospital with sepsis in this patient who was hypothermic tachycardic elevated white count elevated lactic acid source likely pneumonia in this patient who was recently treated at this hospital about a month ago for COVID-19 pneumonia we will need to cover for the resistant gram- positive as well as gram-negative pathogen 2-patient also have a positive UA and concerning for component of urinary tract infection 3-patient did tested positive for COVID-19 however he also tested positive about a month ago and could be a left lower antigen from the infection about a month ago rather than reinfection with COVID-19 4-we will try to obtain a sputum for Gram stain and culture 5-continue with the vancomycin and cefepime while waiting for the culture to finalize We will follow on clinical condition and cultures to further adjust medication if needed Thank you for this consultation we will follow the patient along with you Dictation was produced using [employer] dictation software. please excuse any grammatical, word or spelling errors. Time with Patient: Greater than 30
[2023-01-03] MEDS ORDERED: SODIUM CHLORIDE 0.9% 500 ML 500 ML IV ONE ×2 (02:43→03:35)
[2023-01-03] MEDS: NOREPINEPHRINE 4 MG in SODIUM CHLORIDE 0.9% 250 ML IV SCH (04:10)
[2023-01-03] MEDS: methylPREDNISolone SOD SUCCI 125 MG/2 ML VIAL IV SCH ×4 (05:32→23:33)
[2023-01-03] MEDS: LEVOTHYROXINE 50 MCG TAB PO SCH (05:33)
[2023-01-03] MEDS ORDERED: VANCOMYCIN 1,000 MG in SODIUM CHLORIDE 0.9% 250 ML IVPB SCH (06:00)
[2023-01-03] MEDS: SODIUM CHLORIDE 0.9% 1,000 ML IV SCH ×3 (06:44→22:00)
[2023-01-03 07:27] LABS: HCT 28.5 % (39.0-53.0); Hypochromasia Marked; MCH 32.3 pg (25.0-35.0); MCHC 32.3 g/dL (31.0-37.0); MCV 100.1 fL (80.0-100.0); Macrocytosis Slight; Platelet Count 234 k/uL (150-450); RBC 2.85 m/uL (4.30-5.90); RDW 14.3 % (11.5-15.5); WBC 31.9 k/uL (3.8-10.6)
[2023-01-03 07:35] LABS: HGB 9.2 gm/dL (13.0-17.5)
[2023-01-03] MEDS ORDERED: IPRATROPIUM 0.5 MG/2.5 ML NEBU INHALATION SCH (08:00)
[2023-01-03] MEDS: ALBUTEROL HFA INHALER INHALATION SCH ×4 (08:40→19:47)
--- NOTE | 2023-01-03 09:20 | XR ---
EXAMINATION TYPE: XR chest 1V DATE OF EXAM: 01/03/2023 COMPARISON: 12/04/2022 HISTORY: Shortness of breath TECHNIQUE: Single frontal view of the chest is obtained. FINDINGS: Increasing right lower lobe infiltrate with some signal changes in the left lung base stab le. Thickening or tiny amount of fluid in the minor fissure. Heart size normal. Hypertrophic changes of the spine. These osteopenia. No pneumothorax. Underlying COPD. IMPRESSION: Bilateral subsegmental infiltrate greater on the right is slightly progressed. Correlate for pneumonia.
[2023-01-03] MEDS: DIVALPROEX 500 MG TABLET.DR PO SCH ×2 (09:44→21:37)
[2023-01-03] MEDS: droNABinol 2.5 MG CAP PO SCH ×2 (09:44→21:37)
[2023-01-03] MEDS: CARBIDOPA-LEVODOPA ER 50-200MG 1 EACH TABLET.ER PO SCH ×3 (09:44→18:03)
[2023-01-03] MEDS: SENNOSIDES-DOCUSATE SODIUM 1 EACH TAB PO SCH ×2 (09:44→21:37)
[2023-01-03] MEDS: MULTIVITAMINS, THERA 1 EACH TAB PO SCH (09:44)
[2023-01-03] MEDS: CEFEPIME 2 GM in SODIUM CHLORIDE 0.9% 100 ML IVPB SCH ×3 (09:45→23:33)
[2023-01-03] MEDS: PANTOPRAZOLE 40 MG/10 ML VIAL IV SCH (09:45)
[2023-01-03 10:38] LABS: Band Neutrophils % 13 %; Lymphocytes # (M) 0.32 k/uL (1.0-4.8); Metamyelocytes # (M) 0.32 k/uL (0); Metamyelocytes % 1 %; Neutrophils % (M) 82 %; Nucleated Red Blood Cells 0 /100 WBC (0-0); Total Cells Counted 200
--- NOTE | 2023-01-03 10:51 | P.PN ---
Subjective Progress Note Date: 01/03/23 This is a 77-year-old male with past medical history significant for COPD, hypertension, hyperlipidemia, Parkinson's disease, and schizophrenia. He resides at a [facility] facility. He has a legal guardian. He was discharged from here on 12/05/2022 after an acute hypoxemic respiratory failure episode secondary to COVID-19 infection and suspected aspiration. He was brought back to the emergency room early this morning after again being found to have low O2 saturations and respiratory distress. The patient himself is able to answer simple questions and follow basic commands. Otherwise a poor historian. Asked x-ray showed bilateral lower lobe infiltrates that were actually improved compared to the previous on 12/04/2022. Prominent air collection in the upper abdomen most likely related to gastric distention. CT angiogram ruled out pulmonary embolism. There is patchy groundglass and consolidative opacities in the bilateral lower lobes right greater than left. Additional patchy groundglass opacity in the right upper lobe. Reactive mediastinal and right hilar lymphadenopathy. He required BiPAP support currently 04/02 in the 100% FiO2. He has normal saline and 130 ML's per hour. White count 38.4. Hemoglobin 11.7. Platelets 483. Sodium 144. Potassium 4.2. Bicarb 29. BUN 26. Creatinine 1.10. Glucose 181. Lactic acid 5.2. ProBNP 2710. Urinalysis with large white count and few bacteria. Influenza screen negative. RSV screen negative. COVID-19 screen positive. Arterial blood gases on her percent FiO2 revealed a pO2 of 74, pCO2 66 and a pH of 7.25. He is seen today in consultation in the intensive care unit. He is awake. Able to state his name. He is tachycardic in the 120s. He is tachypneic in the 30s. Blood pressure stable. His received 2 L of fluid resuscitation. He is been given vancomycin and cefepime. Receiving bronchodilators. The patient is seen today 01/03/2023 in follow-up in the intensive care unit. He is currently on AirVo high flow oxygen at 40 L and 50% FiO2. He is receiving normal saline at 130 ML's per hour. Currently required norepinephrine at 2.82 mcg/m. White count 31.9. Hemoglobin 9.2. He remains afebrile. Chest x-ray reveals bilateral subsegmental infiltrates right greater than left. Pro- calcitonin 0.76. He remains on cefepime and vancomycin. Continued on Solu- Medrol. Remains on bronchodilators. Objective - Vital Signs Vital signs: Vital Signs Temp 98.2 F 01/03/23 00:00 Pulse 87 01/03/23 10:00 Resp 19 01/03/23 10:00 BP 96/45 01/03/23 10:00 Pulse Ox 91 L 01/03/23 10:00 FiO2 50 01/03/23 08:40 Intake & Output 01/02/23 01/03/23 01/03/23 18:59 06:59 18:59 Intake Total 1160 2155 1005 Output Total 423 600 320 Balance 737 1555 685 Weight 55 kg 94.2 kg 94.2 kg Intake: IV 1160 1430 765 Cefepime 2 gm In Sodium 100 Chloride 0.9% 100 ml @ 25 mls/hr IVPB Q12HR [facility] Rx #:[id number] Invasive Line 2 20 Sodium Chloride 0.9% 1, 910 1430 520 000 ml @ 130 mls/hr IV . Q7H42M [facility] Rx#:[id number] Vancomycin 1,000 mg In 250 125 Sodium Chloride 0.9% 250 ml @ 125 mls/hr IVPB Q24H [facility] Rx#:[id number] Intake, IV Titration 725 Amount Cefepime 2 gm In Sodium 25 Chloride 0.9% 100 ml @ 200 mls/hr IVPB ONCE [facility] Rx#:[id number] Cefepime 2 gm In Sodium 75 Chloride 0.9% 100 ml @ 25 mls/hr IVPB Q12HR [facility] Rx #:[id number] Sodium Chloride 0.9% 500 500 ml 500 ml @ 999 mls/hr IV .Q31M [facility] Rx#:[id number] Vancomycin 1,000 mg In 125 Sodium Chloride 0.9% 250 ml @ 125 mls/hr IVPB ONCE [facility] Rx#:[id number] Oral 240 Output: Urine 423 600 320 Uretheral (Sofia) 20 Other: Voiding Method Indwelling Catheter Indwelling Catheter Indwelling Catheter # Bowel Movements 0 - Exam GENERAL EXAM: Alert, oriented times one, 77-year-old male on AirVo high flow oxygen at 50% FiO2 and 40 L, fairly comfortable in no apparent distress. HEAD: Normocephalic. EYES: Normal reaction of pupils, equal size. NOSE: Clear with pink turbinates. THROAT: No erythema or exudates. NECK: No masses, no JVD. CHEST: No chest wall deformity. LUNGS: Equal air entry with bilateral scattered rhonchi. CVS: S1 and S2 normal with no audible murmur, regular rhythm. ABDOMEN: No hepatosplenomegaly, normal bowel sounds, no guarding or rigidity. SPINE: No scoliosis or deformity SKIN: No rashes CENTRAL NERVOUS SYSTEM: No focal deficits, oriented times one, tone is normal in all 4 extremities. EXTREMITIES: Bilateral toenail onychomycosis. There is no peripheral edema. No clubbing, no cyanosis. Peripheral pulses are intact. - Labs CBC & Chem 7: 01/03/23 05:54 01/02/23 07:34 Labs: Abnormal Lab Results - Last 24 Hours (Table) 01/02/23 01/02/23 01/02/23 Range/Units 07:34 11:37 11:39 WBC (3.8-10.6) k/uL RBC (4.30-5.90) m/uL Hgb (13.0-17.5) gm/dL Hct (39.0-53.0) % MCV (80.0-100.0) fL Neutrophils # (Manual) (1.3-7.7) k/uL Lymphocytes # (Manual) (1.0-4.8) k/uL Monocytes # (Manual) (0-1.0) k/uL Metamyelocytes # (Man) (0) k/uL ABG pH 7.25 L (7.35-7.45) ABG pCO2 66 H (35-45) mmHg ABG pO2 74 L (83-108) mmHg ABG HCO3 29 H (21-25) mmol/L ABG Total CO2 31 H (19-24) mmol/L ABG O2 Saturation 90.0 L (94-97) % POC Glucose (mg/dL) (70-110) mg/dL Plasma Lactic Acid Prince 3.3 H* (0.7-2.0) mmol/L Procalcitonin 0.76 H (0.02-0.09) ng/mL 01/02/23 01/02/23 01/03/23 Range/Units 12:31 15:08 05:54 WBC 31.9 H (3.8-10.6) k/uL RBC 2.85 L (4.30-5.90) m/uL Hgb 9.2 L D (13.0-17.5) gm/dL Hct 28.5 L (39.0-53.0) % MCV 100.1 H (80.0-100.0) fL Neutrophils # (Manual) 30.30 H (1.3-7.7) k/uL Lymphocytes # (Manual) 0.32 L (1.0-4.8) k/uL Monocytes # (Manual) 1.60 H (0-1.0) k/uL Metamyelocytes # (Man) 0.32 H (0) k/uL ABG pH (7.35-7.45) ABG pCO2 (35-45) mmHg ABG pO2 (83-108) mmHg ABG HCO3 (21-25) mmol/L ABG Total CO2 (19-24) mmol/L ABG O2 Saturation (94-97) % POC Glucose (mg/dL) 134 H (70-110) mg/dL Plasma Lactic Acid Prince 4.0 H* (0.7-2.0) mmol/L Procalcitonin (0.02-0.09) ng/mL Assessment and Plan Assessment: Acute hypoxemic respiratory failure secondary to COVID-19 infection and possible aspiration. Chest x-ray shows bilateral infiltrates increased on the right. ProCalcitonin 0.76. Currently on a AirVo high flow at 40 L and 50% FiO2. Patient did test positive for COVID-19. Acute urinary tract infection Leukocytosis secondary to above Lactic acidosis secondary to above Recent admission from 11/27 - 12/05/2022 for COVID-19 pneumonia and/or aspiration Chronic obstructive pulmonary disease, appears stable Essential hypertension Hyperlipidemia Parkinson's disease Bilateral toe onychomycosis Plan: The patient was seen and evaluated Chest x-ray, labs and medications reviewed Continue vancomycin and cefepime Blood, sputum, urine cultures pending Procalcitonin elevated Continue bronchodilators, steroids Lovenox for DVT prophylaxis Titrate the FiO2 as tolerated We will continue to follow 2I have personally seen and examined the patient, performed the documentation an d the assessment and plan as written. Number of minutes spent on the visit: 10.
[2023-01-03 12:59] LABS: African American GFR (CKD) >90 (>60 ml/min/1.73 sqM); Anion Gap 6 mmol/L; Blood Urea Nitrogen 24 mg/dL (9-20); Calcium 7.7 mg/dL (8.4-10.2); Carbon Dioxide 23 mmol/L (22-30); Chloride 115 mmol/L (98-107); Glucose 122 mg/dL (74-99); Non-African American GFR(CKD) 90 (>60 ml/min/1.73 sqM); Potassium 3.4 mmol/L (3.5-5.1); Sodium 144 mmol/L (137-145)
[2023-01-03] MEDS: ENOXAPARIN 40 MG/0.4 ML SYRINGE SQ SCH (14:34)
[2023-01-03] MEDS: VANCOMYCIN 1,250 MG in SODIUM CHLORIDE 0.9% 250 ML IVPB SCH (18:23)
[2023-01-03] MEDS ORDERED: POTASSIUM CHLORIDE ER 20 MEQ TAB.ER PO STA (19:28)
[2023-01-03] MEDS ORDERED: Magnesium Replacement Protocol 1 EACH MISC MISCELLANE PRN (19:30)
[2023-01-03] MEDS ORDERED: POTASSIUM BICARBONATE/CIT AC 20 MEQ TABLET.EFF PO STA (19:36)
[2023-01-03] MEDS: ATORVASTATIN 80 MG TAB PO SCH (21:37)
[2023-01-03] MEDS: MAGNESIUM SULFATE-D5W PMX 1 GM in DEXTROSE/WATER 1 100ML.BAG IVPB SCH ×2 (21:37→23:03)
[2023-01-03] MEDS: allopurinoL 100 MG TAB PO SCH (21:37)
[2023-01-03] MEDS: atenoloL 25 MG TAB PO SCH (22:16)
[2023-01-03] MEDS: CHLORTHALIDONE 25 MG TAB PO SCH (22:16)
[2023-01-04] MEDS: VANCOMYCIN 1,250 MG in SODIUM CHLORIDE 0.9% 250 ML IVPB SCH ×2 (04:17→16:52)
[2023-01-04] MEDS: LEVOTHYROXINE 50 MCG TAB PO SCH (06:15)
[2023-01-04] MEDS: methylPREDNISolone SOD SUCCI 125 MG/2 ML VIAL IV SCH ×4 (06:15→23:51)
[2023-01-04] MEDS: SODIUM CHLORIDE 0.9% 1,000 ML IV SCH ×3 (06:31→23:51)
[2023-01-04 07:04] LABS: Basophils % (A) 0 %; Eosinophils # (A) 0.1 k/uL (0-0.7); Eosinophils % (A) 0 %; HGB 8.5 gm/dL (13.0-17.5); Hypochromasia Marked; Lymphocytes # (A) 0.5 k/uL (1.0-4.8); Lymphocytes % (A) 2 %; MCH 30.7 pg (25.0-35.0); MCHC 30.2 g/dL (31.0-37.0); MCV 101.9 fL (80.0-100.0); Macrocytosis Slight; Mean Platelet Volume 7.9; Monocytes # (A) 0.6 k/uL (0-1.0); Monocytes % (A) 3 %; Neutrophils # (A) 21.2 k/uL (1.3-7.7); Neutrophils % (A) 95 %; Platelet Count 287 k/uL (150-450); RBC 2.75 m/uL (4.30-5.90); RDW 14.1 % (11.5-15.5); WBC 22.5 k/uL (3.8-10.6)
[2023-01-04 07:13] LABS: African American GFR (CKD) >90 (>60 ml/min/1.73 sqM); Anion Gap 6 mmol/L; Blood Urea Nitrogen 26 mg/dL (9-20); Calcium 7.8 mg/dL (8.4-10.2); Carbon Dioxide 23 mmol/L (22-30); Chloride 114 mmol/L (98-107); Glucose 155 mg/dL (74-99); Non-African American GFR(CKD) 88 (>60 ml/min/1.73 sqM); Potassium 3.3 mmol/L (3.5-5.1); Sodium 143 mmol/L (137-145)
[2023-01-04 07:16] LABS: African American GFR (CKD) >90 (>60 ml/min/1.73 sqM); Magnesium 2.3 mg/dL (1.6-2.3); Non-African American GFR(CKD) >90 (>60 ml/min/1.73 sqM)
--- NOTE | 2023-01-04 07:47 | XR ---
EXAMINATION TYPE: XR chest 1V DATE OF EXAM: 01/04/2023 6:05 AM COMPARISON: Chest radiographs from 01/03/2023 TECHNIQUE: XR chest 1V Frontal view of the chest. CLINICAL INDICATION:Male, 77 years old with history of COVID; FINDINGS: Lungs/Pleura: No pleural effusion or pneumothorax. Similar right basilar patchy airspace opacities. S imilar opacities within the left lung base. Pulmonary vascularity: Unremarkable. Heart/mediastinum: Cardiomediastinal silhouette is unremarkable. Musculoskeletal: No acute osseous pathology. Degenerative changes of the spine. IMPRESSION: Redemonstration of bibasilar airspace opacities consistent with reported Covid infection. Overall no significant change from prior exam.
[2023-01-04] MEDS: CEFEPIME 2 GM in SODIUM CHLORIDE 0.9% 100 ML IVPB SCH ×3 (08:38→23:51)
[2023-01-04] MEDS: PANTOPRAZOLE 40 MG/10 ML VIAL IV SCH (08:39)
[2023-01-04] MEDS: MULTIVITAMINS, THERA 1 EACH TAB PO SCH (08:41)
[2023-01-04] MEDS: DIVALPROEX 500 MG TABLET.DR PO SCH ×2 (08:41→21:06)
[2023-01-04] MEDS: droNABinol 2.5 MG CAP PO SCH ×2 (08:41→20:50)
[2023-01-04] MEDS: ENOXAPARIN 40 MG/0.4 ML SYRINGE SQ SCH (08:41)
[2023-01-04] MEDS: POTASSIUM CHLORIDE ER 20 MEQ TAB.ER PO SCH ×2 (08:41→09:45)
[2023-01-04] MEDS: CARBIDOPA-LEVODOPA ER 50-200MG 1 EACH TABLET.ER PO SCH ×3 (08:42→18:20)
[2023-01-04] MEDS: ALBUTEROL HFA INHALER INHALATION SCH ×4 (08:43→20:13)
[2023-01-04] MEDS: SENNOSIDES-DOCUSATE SODIUM 1 EACH TAB PO SCH ×2 (08:45→21:06)
[2023-01-04] MEDS: NOREPINEPHRINE 4 MG in SODIUM CHLORIDE 0.9% 250 ML IV SCH (09:46)
--- NOTE | 2023-01-04 11:07 | P.PN ---
Subjective Progress Note Date: 01/04/23 This is a 77-year-old male with past medical history significant for COPD, hypertension, hyperlipidemia, Parkinson's disease, and schizophrenia. He resides at a assisted facility. He has a legal guardian. He was discharged from here on 12/05/2022 after an acute hypoxemic respiratory failure episode secondary to COVID-19 infection and suspected aspiration. He was brought back to the emergency room early this morning after again being found to have low O2 saturations and respiratory distress. The patient himself is able to answer simple questions and follow basic commands. Otherwise a poor historian. Asked x-ray showed bilateral lower lobe infiltrates that were actually improved compared to the previous on 12/04/2022. Prominent air collection in the upper abdomen most likely related to gastric distention. CT angiogram ruled out pulmonary embolism. There is patchy groundglass and consolidative opacities in the bilateral lower lobes right greater than left. Additional patchy groundglass opacity in the right upper lobe. Reactive mediastinal and right hilar lymphadenopathy. He required BiPAP support currently 04/02 in the 100% FiO2. He has normal saline and 130 ML's per hour. White count 38.4. Hemoglobin 11.7. Platelets 483. Sodium 144. Potassium 4.2. Bicarb 29. BUN 26. Creatinine 1.10. Glucose 181. Lactic acid 5.2. ProBNP 2710. Urinalysis with large white count and few bacteria. Influenza screen negative. RSV screen negative. COVID-19 screen positive. Arterial blood gases on her percent FiO2 revealed a pO2 of 74, pCO2 66 and a pH of 7.25. He is seen today in consultation in the intensive care unit. He is awake. Able to state his name. He is tachycardic in the 120s. He is tachypneic in the 30s. Blood pressure stable. His received 2 L of fluid resuscitation. He is been given vancomycin and cefepime. Receiving bronchodilators. The patient is seen today 01/03/2023 in follow-up in the intensive care unit. He is currently on AirVo high flow oxygen at 40 L and 50% FiO2. He is receiving normal saline at 130 ML's per hour. Currently required norepinephrine at 2.82 mcg/m. White count 31.9. Hemoglobin 9.2. He remains afebrile. Chest x-ray reveals bilateral subsegmental infiltrates right greater than left. Pro- calcitonin 0.76. He remains on cefepime and vancomycin. Continued on Solu- Medrol. Remains on bronchodilators. The patient is seen today 01/04/2023 in follow-up in the intensive care unit. He is currently off the AirVo and on room air now. Chest x-ray reveals bibasilar airspace opacities. He has normal saline at 130 ML's per hour. Currently requiring norepinephrine at 2.5 mcg/m. He is on antibiotics in the f orm of vancomycin and cefepime. Blood cultures reveal no growth. Urine culture positive for gram-negative bacilli. White count 22.5. Hemoglobin 8.5. Platelets 287. Sodium 143. Potassium 3.3. Bicarb 23. BUN 26. Creatinine 0.79. Glucose 155. He remains on bronchodilators, IV Solu-Medrol, Lovenox for DVT prophylaxis. Objective - Vital Signs Vital signs: Vital Signs Temp 98.5 F 01/04/23 08:00 Pulse 89 01/04/23 09:00 Resp 12 01/04/23 09:00 BP 93/61 01/04/23 09:00 Pulse Ox 96 01/04/23 09:00 FiO2 21 01/04/23 08:43 Intake & Output 01/03/23 01/04/23 01/04/23 18:59 06:59 18:59 Intake Total 2736.273 1630.569 808.790 Output Total 640 445 180 Balance 2096.273 1185.569 628.790 Weight 57.153 kg 58.9 kg Intake: IV 1974 1490 540 Cefepime 2 gm In Sodium 100 Chloride 0.9% 100 ml @ 25 mls/hr IVPB Q12HR [facility] Rx #:[id number] Invasive Line 2 60 60 20 Sodium Chloride 0.9% 1, 1690 1430 520 000 ml @ 130 mls/hr IV . Q7H42M [facility] Rx#:[id number] Vancomycin 1,000 mg In 125 Sodium Chloride 0.9% 250 ml @ 125 mls/hr IVPB Q24H [facility] Rx#:[id number] Intake, IV Titration 41.273 140.569 68.790 Amount Norepinephrine 4 mg In 41.273 140.569 68.790 Sodium Chloride 0.9% 250 ml @ 0.03 MCG/KG/MIN 10. 767 mls/hr IV .[id number] [facility] Rx#:[id number] Oral 720 200 Output: Urine 640 445 180 Other: Voiding Method Indwelling Catheter Indwelling Catheter Indwelling Catheter # Bowel Movements 0 - Exam GENERAL EXAM: Alert, oriented x 1, 77-year-old male, on room air, comfortable in no apparent distress. HEAD: Normocephalic. EYES: Normal reaction of pupils, equal size. NOSE: Clear with pink turbinates. THROAT: No erythema or exudates. NECK: No masses, no JVD. CHEST: No chest wall deformity. LUNGS: Equal air entry with bilateral scattered rhonchi. CVS: S1 and S2 normal with no audible murmur, regular rhythm. ABDOMEN: No hepatosplenomegaly, normal bowel sounds, no guarding or rigidity. SPINE: No scoliosis or deformity SKIN: No rashes CENTRAL NERVOUS SYSTEM: No focal deficits, oriented times one, tone is normal in all 4 extremities. EXTREMITIES: Bilateral toenail onychomycosis. There is no peripheral edema. No clubbing, no cyanosis. Peripheral pulses are intact. - Labs CBC & Chem 7: 01/04/23 05:55 01/04/23 05:55 Labs: Abnormal Lab Results - Last 24 Hours (Table) 01/03/23 01/04/23 01/04/23 Range/Units 12:16 05:55 05:55 WBC 22.5 H (3.8-10.6) k/uL RBC 2.75 L (4.30-5.90) m/uL Hgb 8.5 L (13.0-17.5) gm/dL Hct 28.0 L (39.0-53.0) % MCV 101.9 H (80.0-100.0) fL MCHC 30.2 L (31.0-37.0) g/dL Neutrophils # 21.2 H (1.3-7.7) k/uL Lymphocytes # 0.5 L (1.0-4.8) k/uL Potassium 3.4 L 3.3 L (3.5-5.1) mmol/L Chloride 115 H 114 H (98-107) mmol/L BUN 24 H 26 H (9-20) mg/dL Glucose 122 H 155 H (74-99) mg/dL Calcium 7.7 L 7.8 L (8.4-10.2) mg/dL Microbiology - Last 24 Hours (Table) 01/02/23 08:44 Urine Culture - Preliminary Urine,Catheterized Gram Neg Bacilli 01/02/23 08:15 Blood Culture - Preliminary Blood 01/02/23 08:00 Blood Culture - Preliminary Blood Assessment and Plan Assessment: Acute hypoxemic respiratory failure secondary to COVID-19 infection and possible aspiration. Chest x-ray shows bilateral infiltrates increased on the right. ProCalcitonin 0.76. Recovered and on room air. Patient did test positive for COVID-19. Acute urinary tract infection secondary to gram-negative bacilli Leukocytosis secondary to above, trending down Lactic acidosis secondary to above Sepsis with hypotension secondary to urinary tract infection requiring norepinephrine Recent admission from 11/27 - 12/05/2022 for COVID-19 pneumonia and/or aspiration Chronic obstructive pulmonary disease, appears stable Essential hypertension Hyperlipidemia Parkinson's disease Bilateral toe onychomycosis Plan: The patient was seen and evaluated Chest x-ray, labs and medications reviewed Continue vancomycin and cefepime Continue bronchodilators, steroids Lovenox for DVT prophylaxis Currently stable and on room air Titrate down the norepinephrine as tolerated We will continue to follow 2I have personally seen and examined the patient, performed the documentation and the assessment and plan as written. Number of minutes spent on the visit: 10.
[2023-01-04] MEDS: MIDODRINE 5 MG TAB PO SCH ×2 (12:26→17:08)
--- NOTE | 2023-01-04 15:46 | P.PN ---
Subjective Progress Note Date: 01/03/23 Principal diagnosis: Pneumonia Patient is a 77-year-old male patient with multiple comorbidities including COPD hypertension hyperlipidemia Parkinson disease [facility] resident who was admitted to this facility in 2022 treated for COVID-19 pneumonia patient has been brought back to the hospital of the patient was noticed to be respiratory distress and low O2 sats, patient diagnosed with a pneumonia and admitted to the ICU on a BiPAP initially on today's evaluation that is 01/03/2023, the patient is afebrile, the patient is breathing comfortably on 4 L nasal cannula oxygen, the patient is slightly more awake and alert without any good historian no vomiting diarrhea or any other changes reported by the nursing staff. The patient white count started at 31.9, creatinine 0.75, blood cultures currently pending Objective - Vital Signs Vital signs: Vital Signs Temp 98.2 F 01/03/23 00:00 Pulse 87 01/03/23 10:00 Resp 19 01/03/23 10:00 BP 96/45 01/03/23 10:00 Pulse Ox 91 L 01/03/23 10:00 FiO2 50 01/03/23 08:40 Intake & Output 01/02/23 01/03/23 01/03/23 18:59 06:59 18:59 Intake Total 1160 2155 1005 Output Total 423 600 320 Balance 737 1555 685 Weight 55 kg 94.2 kg 94.2 kg Intake: IV 1160 1430 765 Cefepime 2 gm In Sodium 100 Chloride 0.9% 100 ml @ 25 mls/hr IVPB Q12HR [facility] Rx #:[id number] Invasive Line 2 20 Sodium Chloride 0.9% 1, 910 1430 520 000 ml @ 130 mls/hr IV . Q7H42M [facility] Rx#:[id number] Vancomycin 1,000 mg In 250 125 Sodium Chloride 0.9% 250 ml @ 125 mls/hr IVPB Q24H [facility] Rx#:[id number] Intake, IV Titration 725 Amount Cefepime 2 gm In Sodium 25 Chloride 0.9% 100 ml @ 200 mls/hr IVPB ONCE [facility] Rx#:[id number] Cefepime 2 gm In Sodium 75 Chloride 0.9% 100 ml @ 25 mls/hr IVPB Q12HR [facility] Rx #:[id number] Sodium Chloride 0.9% 500 500 ml 500 ml @ 999 mls/hr IV .Q31M [facility] Rx#:[id number] Vancomycin 1,000 mg In 125 Sodium Chloride 0.9% 250 ml @ 125 mls/hr IVPB ONCE [facility] Rx#:[id number] Oral 240 Output: Urine 423 600 320 Uretheral (Sofia) 20 Other: Voiding Method Indwelling Catheter Indwelling Catheter Indwelling Catheter # Bowel Movements 0 - Exam GENERAL DESCRIPTION: An elderly male lying in bed in no distress RESPIRATORY SYSTEM: Unlabored breathing , decreased breath sounds at bases HEART: S1 S2 regular rate and rhythm , ABDOMEN: Soft , no tenderness EXTREMITIES: No edema feet - Labs CBC & Chem 7: 01/04/23 05:55 01/04/23 05:55 Labs: Abnormal Lab Results - Last 24 Hours (Table) 01/02/23 01/02/23 01/02/23 Range/Units 07:34 11:37 11:39 WBC (3.8-10.6) k/uL RBC (4.30-5.90) m/uL Hgb (13.0-17.5) gm/dL Hct (39.0-53.0) % MCV (80.0-100.0) fL Neutrophils # (Manual) (1.3-7.7) k/uL Lymphocytes # (Manual) (1.0-4.8) k/uL Monocytes # (Manual) (0-1.0) k/uL Metamyelocytes # (Man) (0) k/uL ABG pH 7.25 L (7.35-7.45) ABG pCO2 66 H (35-45) mmHg ABG pO2 74 L (83-108) mmHg ABG HCO3 29 H (21-25) mmol/L ABG Total CO2 31 H (19-24) mmol/L ABG O2 Saturation 90.0 L (94-97) % POC Glucose (mg/dL) (70-110) mg/dL Plasma Lactic Acid Prince 3.3 H* (0.7-2.0) mmol/L Procalcitonin 0.76 H (0.02-0.09) ng/mL 01/02/23 01/02/23 01/03/23 Range/Units 12:31 15:08 05:54 WBC 31.9 H (3.8-10.6) k/uL RBC 2.85 L (4.30-5.90) m/uL Hgb 9.2 L D (13.0-17.5) gm/dL Hct 28.5 L (39.0-53.0) % MCV 100.1 H (80.0-100.0) fL Neutrophils # (Manual) 30.30 H (1.3-7.7) k/uL Lymphocytes # (Manual) 0.32 L (1.0-4.8) k/uL Monocytes # (Manual) 1.60 H (0-1.0) k/uL Metamyelocytes # (Man) 0.32 H (0) k/uL ABG pH (7.35-7.45) ABG pCO2 (35-45) mmHg ABG pO2 (83-108) mmHg ABG HCO3 (21-25) mmol/L ABG Total CO2 (19-24) mmol/L ABG O2 Saturation (94-97) % POC Glucose (mg/dL) 134 H (70-110) mg/dL Plasma Lactic Acid Prince 4.0 H* (0.7-2.0) mmol/L Procalcitonin (0.02-0.09) ng/mL Assessment and Plan (1) Pneumonia Current Visit: Yes Status: Acute Code(s): J18.9 - PNEUMONIA, UNSPECIFIED ORGANISM SNOMED Code(s): 769241910 (2) COVID-19 Current Visit: Yes Status: Acute Code(s): U07.1 - COVID-19 SNOMED Code(s): 215633171 (3) UTI (urinary tract infection) Current Visit: Yes Status: Acute Code(s): N39.0 - URINARY TRACT INFECTION, SITE NOT SPECIFIED SNOMED Code(s): 18019012 Plan: 1patient presented to the hospital with sepsis in this patient who was hypothermic tachycardic elevated white count elevated lactic acid source likely pneumonia in this patient who was recently treated at this hospital about a month ago for COVID-19 pneumonia we will need to cover for the resistant gram- positive as well as gram-negative pathogen 2-patient also have a positive UA and concerning for component of urinary tract infection 3-patient did tested positive for COVID-19 however he also tested positive about a month ago and could be a left lower antigen from the infection about a month ago rather than reinfection with COVID-19 4-we will try to obtain a sputum for Gram stain and culture 5-patient seemed to have shown some clinical improvement and will continue with the vancomycin and cefepime while waiting for the culture to finalize Dictation was produced using [employer] software. please excuse any grammatical, word or spelling errors. Time with Patient: Less than 30
--- NOTE | 2023-01-04 15:49 | P.PN ---
Subjective Progress Note Date: 01/04/23 Principal diagnosis: Pneumonia Patient is a 77-year-old male patient with multiple comorbidities including COPD hypertension hyperlipidemia Parkinson disease alf resident who was admitted to this facility in 2022 treated for COVID-19 pneumonia patient has been brought back to the hospital of the patient was noticed to be respiratory distress and low O2 sats, patient diagnosed with a pneumonia and admitted to the ICU on a BiPAP initially on today's evaluation that is 01/04/2023, the patient remains to be afebrile, the patient is breathing comfortably on 2 L nasal cannula oxygen, the patient is slightly more awake however pleasantly confused and unable to good historian, no vomiting diarrhea or any other changes reported by the nursing staff The patient white count is down to 22.5 , creatinine 0.79, blood cultures currently pending, urine is growing gram-negative bacilli Objective - Vital Signs Vital signs: Vital Signs Temp 98.0 F 01/04/23 12:30 Pulse 64 01/04/23 12:30 Resp 16 01/04/23 12:30 BP 94/56 01/04/23 12:30 Pulse Ox 96 01/04/23 12:30 FiO2 21 01/04/23 08:43 Intake & Output 01/03/23 01/04/23 01/04/23 18:59 06:59 18:59 Intake Total 2736.273 1904.164 0083.169 Output Total 640 445 325 Balance 2096.273 1185.569 900.169 Weight 57.153 kg 58.9 kg Intake: IV 1975 1490 930 Cefepime 2 gm In Sodium 100 Chloride 0.9% 100 ml @ 25 mls/hr IVPB Q12HR [facility] Rx #:[id number] Invasive Line 2 60 60 20 Sodium Chloride 0.9% 1, 1690 1430 910 000 ml @ 130 mls/hr IV . Q7H42M [facility] Rx#:[id number] Vancomycin 1,000 mg In 125 Sodium Chloride 0.9% 250 ml @ 125 mls/hr IVPB Q24H [facility] Rx#:[id number] Intake, IV Titration 41.273 140.569 95.169 Amount Norepinephrine 4 mg In 41.273 140.569 95.169 Sodium Chloride 0.9% 250 ml @ 0.03 MCG/KG/MIN 10. 767 mls/hr IV .[id number] [facility] Rx#:[id number] Oral 720 200 Output: Urine 640 445 325 Other: Voiding Method Indwelling Catheter Indwelling Catheter Indwelling Catheter # Bowel Movements 0 - Exam GENERAL DESCRIPTION: An elderly male lying in bed in no distress RESPIRATORY SYSTEM: Unlabored breathing , decreased breath sounds at bases HEART: S1 S2 regular rate and rhythm , ABDOMEN: Soft , no tenderness EXTREMITIES: No edema feet - Labs CBC & Chem 7: 01/04/23 05:55 01/04/23 05:55 Labs: Abnormal Lab Results - Last 24 Hours (Table) 01/04/23 01/04/23 Range/Units 05:55 05:55 WBC 22.5 H (3.8-10.6) k/uL RBC 2.75 L (4.30-5.90) m/uL Hgb 8.5 L (13.0-17.5) gm/dL Hct 28.0 L (39.0-53.0) % MCV 101.9 H (80.0-100.0) fL MCHC 30.2 L (31.0-37.0) g/dL Neutrophils # 21.2 H (1.3-7.7) k/uL Lymphocytes # 0.5 L (1.0-4.8) k/uL Potassium 3.3 L (3.5-5.1) mmol/L Chloride 114 H (98-107) mmol/L BUN 26 H (9-20) mg/dL Glucose 155 H (74-99) mg/dL Calcium 7.8 L (8.4-10.2) mg/dL Microbiology - Last 24 Hours (Table) 01/02/23 08:44 Urine Culture - Preliminary Urine,Catheterized Gram Neg Bacilli 01/02/23 08:15 Blood Culture - Preliminary Blood 01/02/23 08:00 Blood Culture - Preliminary Blood Assessment and Plan (1) Pneumonia Current Visit: Yes Status: Acute Code(s): J18.9 - PNEUMONIA, UNSPECIFIED ORGANISM SNOMED Code(s): 336178752 (2) UTI (urinary tract infection) Current Visit: Yes Status: Acute Code(s): N39.0 - URINARY TRACT INFECTION, SITE NOT SPECIFIED SNOMED Code(s): 13761110 Plan: 1patient presented to the hospital with sepsis in this patient who was hypothermic tachycardic elevated white count elevated lactic acid was initially concern for likely pneumonia however more behaving offer UTI with sepsis now cli nically 2-patient did tested positive for COVID-19 however he also tested positive about a month ago and could be a left lower antigen from the infection about a month ago rather than reinfection with COVID-19 3-we will try to obtain a sputum for Gram stain and culture 4-patient has shown some clinical improvement and will continue with the vancomycin and cefepime while waiting for the culture to finalize and monitor his clinical course closely Dictation was produced using [employer] dictation software. please excuse any grammatical, word or spelling errors. Time with Patient: Less than 30
[2023-01-04] MEDS ORDERED: VANCOMYCIN TROUGH DUE 1 EACH MISC MISCELLANE ONE (16:00)
[2023-01-04] MEDS ORDERED: POTASSIUM CHLORIDE ER 20 MEQ TAB.ER PO SCH (18:00)
[2023-01-04] MEDS: atenoloL 25 MG TAB PO SCH (20:48)
[2023-01-04] MEDS: CHLORTHALIDONE 25 MG TAB PO SCH (20:50)
[2023-01-04] MEDS: ATORVASTATIN 80 MG TAB PO SCH (21:06)
[2023-01-04] MEDS: allopurinoL 100 MG TAB PO SCH (21:06)
[2023-01-05] MEDS: NOREPINEPHRINE 4 MG in SODIUM CHLORIDE 0.9% 250 ML IV SCH (04:31)
[2023-01-05 04:48] LABS: Basophils % (A) 0 %; Eosinophils % (A) 0 %; HCT 25.4 % (39.0-53.0); HGB 7.6 gm/dL (13.0-17.5); Hypochromasia Marked; Lymphocytes # (A) 0.4 k/uL (1.0-4.8); Lymphocytes % (A) 4 %; MCHC 29.8 g/dL (31.0-37.0); MCV 100.7 fL (80.0-100.0); Macrocytosis Slight; Monocytes # (A) 0.3 k/uL (0-1.0); Monocytes % (A) 2 %; Neutrophils # (A) 11.2 k/uL (1.3-7.7); Neutrophils % (A) 94 %; Platelet Count 223 k/uL (150-450); RBC 2.52 m/uL (4.30-5.90); RDW 14.4 % (11.5-15.5)
[2023-01-05 05:03] LABS: African American GFR (CKD) >90 (>60 ml/min/1.73 sqM); Anion Gap 2 mmol/L; Blood Urea Nitrogen 25 mg/dL (9-20); Calcium 7.8 mg/dL (8.4-10.2); Carbon Dioxide 22 mmol/L (22-30); Chloride 120 mmol/L (98-107); Glucose 114 mg/dL (74-99); Magnesium 2.2 mg/dL (1.6-2.3); Non-African American GFR(CKD) 84 (>60 ml/min/1.73 sqM); Sodium 144 mmol/L (137-145)
[2023-01-05] MEDS ORDERED: VANCOMYCIN 1,000 MG in SODIUM CHLORIDE 0.9% 250 ML IVPB SCH (06:00)
[2023-01-05] MEDS: MIDODRINE 5 MG TAB PO SCH ×3 (06:30→17:13)
[2023-01-05] MEDS: LEVOTHYROXINE 50 MCG TAB PO SCH (06:30)
[2023-01-05] MEDS: SODIUM CHLORIDE 0.9% 1,000 ML IV SCH ×2 (06:30→16:58)
[2023-01-05] MEDS: methylPREDNISolone SOD SUCCI 125 MG/2 ML VIAL IV SCH (06:31)
[2023-01-05] MEDS: ENOXAPARIN 40 MG/0.4 ML SYRINGE SQ SCH (07:49)
[2023-01-05] MEDS: MULTIVITAMINS, THERA 1 EACH TAB PO SCH (07:49)
[2023-01-05] MEDS: droNABinol 2.5 MG CAP PO SCH ×2 (07:49→20:37)
[2023-01-05] MEDS: CARBIDOPA-LEVODOPA ER 50-200MG 1 EACH TABLET.ER PO SCH ×3 (07:50→18:01)
[2023-01-05] MEDS: SENNOSIDES-DOCUSATE SODIUM 1 EACH TAB PO SCH ×2 (07:50→20:37)
[2023-01-05] MEDS: DIVALPROEX 500 MG TABLET.DR PO SCH ×2 (07:50→20:37)
[2023-01-05] MEDS: PANTOPRAZOLE 40 MG/10 ML VIAL IV SCH (07:51)
[2023-01-05] MEDS: ALBUTEROL HFA INHALER INHALATION SCH ×4 (08:02→21:10)
[2023-01-05] MEDS: CEFEPIME 2 GM in SODIUM CHLORIDE 0.9% 100 ML IVPB SCH ×3 (08:53→23:59)
--- NOTE | 2023-01-05 10:44 | P.PN ---
Subjective Progress Note Date: 01/05/23 This is a 77-year-old male with past medical history significant for COPD, hypertension, hyperlipidemia, Parkinson's disease, and schizophrenia. He resides at a assisted facility. He has a legal guardian. He was discharged from here on 12/05/2022 after an acute hypoxemic respiratory failure episode secondary to COVID-19 infection and suspected aspiration. He was brought back to the emergency room early this morning after again being found to have low O2 saturations and respiratory distress. The patient himself is able to answer simple questions and follow basic commands. Otherwise a poor historian. Asked x-ray showed bilateral lower lobe infiltrates that were actually improved compared to the previous on 12/04/2022. Prominent air collection in the upper abdomen most likely related to gastric distention. CT angiogram ruled out pulmonary embolism. There is patchy groundglass and consolidative opacities in the bilateral lower lobes right greater than left. Additional patchy groundglass opacity in the right upper lobe. Reactive mediastinal and right hilar lymphadenopathy. He required BiPAP support currently 04/02 in the 100% FiO2. He has normal saline and 130 ML's per hour. White count 38.4. Hemoglobin 11.7. Platelets 483. Sodium 144. Potassium 4.2. Bicarb 29. BUN 26. Creatinine 1.10. Glucose 181. Lactic acid 5.2. ProBNP 2710. Urinalysis with large white count and few bacteria. Influenza screen negative. RSV screen negative. COVID-19 screen positive. Arterial blood gases on her percent FiO2 revealed a pO2 of 74, pCO2 66 and a pH of 7.25. He is seen today in consultation in the intensive care unit. He is awake. Able to state his name. He is tachycardic in the 120s. He is tachypneic in the 30s. Blood pressure stable. His received 2 L of fluid resuscitation. He is been given vancomycin and cefepime. Receiving bronchodilators. The patient is seen today 01/03/2023 in follow-up in the intensive care unit. He is currently on AirVo high flow oxygen at 40 L and 50% FiO2. He is receiving normal saline at 130 ML's per hour. Currently required norepinephrine at 2.82 mcg/m. White count 31.9. Hemoglobin 9.2. He remains afebrile. Chest x-ray reveals bilateral subsegmental infiltrates right greater than left. Pro- calcitonin 0.76. He remains on cefepime and vancomycin. Continued on Solu- Medrol. Remains on bronchodilators. The patient is seen today 01/04/2023 in follow-up in the intensive care unit. He is currently off the AirVo and on room air now. Chest x-ray reveals bibasilar airspace opacities. He has normal saline at 130 ML's per hour. Currently requiring norepinephrine at 2.5 mcg/m. He is on antibiotics in the f orm of vancomycin and cefepime. Blood cultures reveal no growth. Urine culture positive for gram-negative bacilli. White count 22.5. Hemoglobin 8.5. Platelets 287. Sodium 143. Potassium 3.3. Bicarb 23. BUN 26. Creatinine 0.79. Glucose 155. He remains on bronchodilators, IV Solu-Medrol, Lovenox for DVT prophylaxis. The patient is seen today 01/05/2023 in follow-up in the intensive care unit. He is currently sitting up in bed. Awake and alert in no acute distress. Maintaining O2 saturations in the 90s on room air. He has normal saline at 130 ML's per hour. Urine culture positive for Klebsiella pneumoniae. He remains on vancomycin and cefepime. Blood culture reveals no growth. White count 12.0. Hemoglobin 7.6. Platelets 223. Sodium 144. Potassium 4.0. Bicarb 22. BUN 25. Creatinine 0.89. Glucose 114. He remains on bronchodilators, IV Solu- Medrol, Lovenox for DVT prophylaxis. Objective - Vital Signs Vital signs: Vital Signs Temp 97.7 F 01/05/23 08:00 Pulse 71 01/05/23 10:00 Resp 14 01/05/23 09:30 BP 101/48 01/05/23 09:30 Pulse Ox 97 01/05/23 09:30 FiO2 21 01/04/23 08:43 Intake & Output 01/04/23 01/05/23 01/05/23 18:59 06:59 18:59 Intake Total 7730.650 3506 480 Output Total 455 401 60 Balance 1062.520 8449 420 Weight 56.5 kg Intake: IV 1450 1430 130 Invasive Line 2 20 Sodium Chloride 0.9% 1430 1430 130 000 ml @ 130 mls/hr IV . Q7H42M [facility] Rx#:[id number] Intake, IV Titration 227.228 100 250 Amount Cefepime 2 gm In Sodium 100 Chloride 0.9% 100 ml @ 25 mls/hr IVPB Q8HR [facility] Rx# :[id number] Norepinephrine 4 mg In 102.228 Sodium Chloride 0.9% 250 ml @ 0.03 MCG/KG/MIN 10. 767 mls/hr IV .[id number] [facility] Rx#:[id number] Vancomycin 1,000 mg In 125 250 Sodium Chloride 0.9% 250 ml @ 125 mls/hr IVPB Q12H [facility] Rx#:[id number] Oral 200 300 100 Output: Urine 455 401 60 Other: Voiding Method Indwelling Catheter Indwelling Catheter Indwelling Catheter - Exam GENERAL EXAM: Alert, oriented x 1, pleasant 77-year-old male, on room air, comfortable in no apparent distress. HEAD: Normocephalic. EYES: Normal reaction of pupils, equal size. NOSE: Clear with pink turbinates. THROAT: No erythema or exudates. NECK: No masses, no JVD. CHEST: No chest wall deformity. LUNGS: Equal air entry with bilateral scattered rhonchi. CVS: S1 and S2 normal with no audible murmur, regular rhythm. ABDOMEN: No hepatosplenomegaly, normal bowel sounds, no guarding or rigidity. SPINE: No scoliosis or deformity SKIN: No rashes CENTRAL NERVOUS SYSTEM: No focal deficits, oriented times one, tone is normal in all 4 extremities. EXTREMITIES: Bilateral toenail onychomycosis. There is no peripheral edema. No clubbing, no cyanosis. Peripheral pulses are intact. - Labs CBC & Chem 7: 01/05/23 04:03 01/05/23 04:03 Labs: Abnormal Lab Results - Last 24 Hours (Table) 01/05/23 01/05/23 Range/Units 04:03 04:03 WBC 12.0 H (3.8-10.6) k/uL RBC 2.52 L (4.30-5.90) m/uL Hgb 7.6 L (13.0-17.5) gm/dL Hct 25.4 L (39.0-53.0) % MCV 100.7 H (80.0-100.0) fL MCHC 29.8 L (31.0-37.0) g/dL Neutrophils # 11.2 H (1.3-7.7) k/uL Lymphocytes # 0.4 L (1.0-4.8) k/uL Chloride 120 H (98-107) mmol/L BUN 25 H (9-20) mg/dL Glucose 114 H (74-99) mg/dL Calcium 7.8 L (8.4-10.2) mg/dL Microbiology - Last 24 Hours (Table) 01/02/23 08:44 Urine Culture - Final Urine,Catheterized Klebsiella pneumoniae 01/02/23 08:15 Blood Culture - Preliminary Blood 01/02/23 08:00 Blood Culture - Preliminary Blood Assessment and Plan Assessment: Acute hypoxemic respiratory failure secondary to COVID-19 infection and possible aspiration. Chest x-ray shows bilateral infiltrates increased on the right. ProCalcitonin 0.76. Recovered and on room air. Patient did test positive for COVID-19. Acute urinary tract infection secondary to Klebsiella pneumoniae Leukocytosis secondary to above, trending down Lactic acidosis secondary to above Sepsis with hypotension secondary to urinary tract infection requiring norepinephrine Recent admission from 11/27 - 12/05/2022 for COVID-19 pneumonia and/or aspiration Chronic obstructive pulmonary disease, appears stable Essential hypertension Hyperlipidemia Parkinson's disease Bilateral toe onychomycosis Plan: The patient was seen and evaluated Labs and medications reviewed Discontinue vancomycin Continue cefepime, bronchodilators Discontinue steroids Lovenox for DVT prophylaxis Currently stable and on room air Transfer to the regular medical floor We will continue to follow I have personally seen and examined the patient, performed the documentation and the assessment and plan as written. Number of minutes spent on the visit: 10.
[2023-01-05] MEDS: PANTOPRAZOLE 40 MG TABLET PO SCH (17:13)
--- NOTE | 2023-01-05 17:49 | P.PN ---
Subjective Progress Note Date: 01/05/23 Principal diagnosis: Pneumonia Patient is a 77-year-old male patient with multiple comorbidities including COPD hypertension hyperlipidemia Parkinson disease care home resident who was admitted to this facility in 2022 treated for COVID-19 pneumonia patient has been brought back to the hospital of the patient was noticed to be respiratory distress and low O2 sats, patient diagnosed with a pneumonia and admitted to the ICU on a BiPAP initially on today's evaluation that is01/05/2023, the patient remains to be afebrile, the patient is breathing comfortably on room air, the patient denies chest pain shortness of breath or cough, no nausea no vomiting no abdominal pain and no diarrhea has been reported. The patient white count is down to 12.0 , creatinine 0.79, blood cultures negative urine is growing Klebsiella Objective - Vital Signs Vital signs: Vital Signs Temp 97.6 F 01/05/23 16:04 Pulse 46 L 01/05/23 16:04 Resp 18 01/05/23 16:04 BP 135/61 01/05/23 16:04 Pulse Ox 96 01/05/23 16:04 FiO2 21 01/04/23 08:43 Intake & Output 01/04/23 01/05/23 01/05/23 18:59 06:59 18:59 Intake Total 4073.248 1039 1155 Output Total 455 401 260 Balance 0188.972 7352 895 Weight 56.5 kg Intake: IV 1450 1430 655 Invasive Line 2 20 Sodium Chloride 0.9% 1, 1430 1430 655 000 ml @ 75 mls/hr IV . [id number] [facility] Rx#:[id number] Intake, IV Titration 227.228 100 400 Amount Cefepime 2 gm In Sodium 100 Chloride 0.9% 100 ml @ 25 mls/hr IVPB Q8HR [facility] Rx# :[id number] Norepinephrine 4 mg In 102.228 Sodium Chloride 0.9% 250 ml @ 0.03 MCG/KG/MIN 10. 767 mls/hr IV .[id number] [facility] Rx#:[id number] Sodium Chloride 0.9% 1, 150 000 ml @ 75 mls/hr IV . [id number] [facility] Rx#:[id number] Vancomycin 1,000 mg In 125 250 Sodium Chloride 0.9% 250 ml @ 125 mls/hr IVPB Q12H [facility] Rx#:[id number] Oral 200 300 100 Output: Urine 455 401 260 Other: Voiding Method Indwelling Catheter Indwelling Catheter Indwelling Catheter - Exam GENERAL DESCRIPTION: An elderly male lying in bed in no distress RESPIRATORY SYSTEM: Unlabored breathing , decreased breath sounds at bases HEART: S1 S2 regular rate and rhythm , ABDOMEN: Soft , no tenderness EXTREMITIES: No edema feet - Labs CBC & Chem 7: 01/05/23 04:03 01/05/23 04:03 Labs: Abnormal Lab Results - Last 24 Hours (Table) 01/05/23 01/05/23 Range/Units 04:03 04:03 WBC 12.0 H (3.8-10.6) k/uL RBC 2.52 L (4.30-5.90) m/uL Hgb 7.6 L (13.0-17.5) gm/dL Hct 25.4 L (39.0-53.0) % MCV 100.7 H (80.0-100.0) fL MCHC 29.8 L (31.0-37.0) g/dL Neutrophils # 11.2 H (1.3-7.7) k/uL Lymphocytes # 0.4 L (1.0-4.8) k/uL Chloride 120 H (98-107) mmol/L BUN 25 H (9-20) mg/dL Glucose 114 H (74-99) mg/dL Calcium 7.8 L (8.4-10.2) mg/dL Microbiology - Last 24 Hours (Table) 01/02/23 08:15 Blood Culture - Preliminary Blood 01/02/23 08:00 Blood Culture - Preliminary Blood 01/02/23 08:44 Urine Culture - Final Urine,Catheterized Klebsiella pneumoniae Assessment and Plan (1) Pneumonia Current Visit: Yes Status: Acute Code(s): J18.9 - PNEUMONIA, UNSPECIFIED ORGANISM SNOMED Code(s): 603426841 (2) UTI (urinary tract infection) Current Visit: Yes Status: Acute Code(s): N39.0 - URINARY TRACT INFECTION, SITE NOT SPECIFIED SNOMED Code(s): 50312419 Plan: 1patient presented to the hospital with sepsis in this patient who was hypothermic tachycardic elevated white count elevated lactic acid was initially concern for likely pneumonia however more behaving offer UTI with sepsis now clinically 2-patient did tested positive for COVID-19 however he also tested positive about a month ago and could be a left lower antigen from the infection about a month ago rather than reinfection with COVID-19 3--patient has shown some clinical improvement and will continue with cefepime however discontinue vancomycin Dictation was produced using [employer] dictation software. please excuse any grammatical, word or spelling errors. Time with Patient: Less than 30
[2023-01-05] MEDS: ATORVASTATIN 80 MG TAB PO SCH (20:37)
[2023-01-05] MEDS: CHLORTHALIDONE 25 MG TAB PO SCH (20:38)
[2023-01-05] MEDS: allopurinoL 100 MG TAB PO SCH (20:38)
--- NOTE | 2023-01-05 21:40 | PN ---
PROGRESS NOTE DATE OF SERVICE: 01/03/2023 CHIEF COMPLAINT: Acute respiratory distress and COVID pneumonia. HISTORY OF PRESENT ILLNESS: This gentleman remains with ventilator support. He is tachycardic. PHYSICAL EXAMINATION: CHEST: Demonstrates decreased breath sounds bilaterally. CARDIAC: Sinus. ABDOMEN: Soft. IMPRESSION: Acute respiratory failure with COVID pneumonia. PLAN: Continue with ICU management with Intensive Medicine/Pulmonology. MMODL / IJN: [id number] /
--- NOTE | 2023-01-05 22:16 | PN ---
PROGRESS NOTE DATE OF SERVICE: 01/04/2023 CHIEF COMPLAINT: Respiratory failure and COVID pneumonia. HISTORY OF PRESENT ILLNESS: This gentleman is improving. He is breathing on his own. He is awake and alert. Renal function is improved. PHYSICAL EXAM: GENERAL: He remains pale. He is alert. LUNGS: Breath sounds are heard bilaterally, but they are diminished. CARDIAC: Normal. IMPRESSION: 1. Acute respiratory distress. 2. COVID pneumonia. 3. Sepsis. PLAN: Progress activity. MMODL / GIANNAN: [id number] /
[2023-01-06] MEDS: SODIUM CHLORIDE 0.9% 1,000 ML IV SCH ×2 (04:13→21:10)
[2023-01-06] MEDS: MIDODRINE 5 MG TAB PO SCH ×3 (05:50→18:12)
[2023-01-06] MEDS: LEVOTHYROXINE 50 MCG TAB PO SCH (05:51)
[2023-01-06] MEDS: PANTOPRAZOLE 40 MG TABLET PO SCH ×2 (05:52→18:12)
[2023-01-06 06:23] LABS: African American GFR (CKD) >90 (>60 ml/min/1.73 sqM); Non-African American GFR(CKD) 86 (>60 ml/min/1.73 sqM)
[2023-01-06] MEDS: ALBUTEROL HFA INHALER INHALATION SCH ×4 (08:27→20:22)
[2023-01-06] MEDS: CEFEPIME 2 GM in SODIUM CHLORIDE 0.9% 100 ML IVPB SCH ×3 (10:08→23:35)
[2023-01-06] MEDS: CARBIDOPA-LEVODOPA ER 50-200MG 1 EACH TABLET.ER PO SCH ×3 (10:08→18:12)
[2023-01-06] MEDS: droNABinol 2.5 MG CAP PO SCH ×2 (10:08→21:49)
[2023-01-06] MEDS: DIVALPROEX 500 MG TABLET.DR PO SCH ×2 (10:08→21:48)
[2023-01-06] MEDS: SENNOSIDES-DOCUSATE SODIUM 1 EACH TAB PO SCH ×2 (10:08→21:49)
[2023-01-06] MEDS: MULTIVITAMINS, THERA 1 EACH TAB PO SCH (10:08)
[2023-01-06] MEDS: ENOXAPARIN 40 MG/0.4 ML SYRINGE SQ SCH (10:08)
--- NOTE | 2023-01-06 11:09 | P.PN ---
Subjective Progress Note Date: 01/06/23 This is a 77-year-old male with past medical history significant for COPD, hypertension, hyperlipidemia, Parkinson's disease, and schizophrenia. [facility]. He has a legal guardian. He was discharged from here on 12/05/2022 after an acute hypoxemic respiratory failure episode secondary to COVID-19 infection and suspected aspiration. He was brought back to the emergency room early this morning after again being found to have low O2 saturations and respiratory distress. The patient himself is able to answer simple questions and follow basic commands. Otherwise a poor historian. Asked x-ray showed bilateral lower lobe infiltrates that were actually improved compared to the previous on 12/04/2022. Prominent air collection in the upper abdomen most likely related to gastric distention. CT angiogram ruled out pulmonary embolism. There is patchy groundglass and consolidative opacities in the bilateral lower lobes right greater than left. Additional patchy groundglass opacity in the right upper lobe. Reactive mediastinal and right hilar lymphadenopathy. He required BiPAP support currently 04/02 in the 100% FiO2. He has normal saline and 130 ML's per hour. White count 38.4. Hemoglobin 11.7. Platelets 483. Sodium 144. Potassium 4.2. Bicarb 29. BUN 26. Creatinine 1.10. Glucose 181. Lactic acid 5.2. ProBNP 2710. Urinalysis with large white count and few bacteria. Influenza screen negative. RSV screen negative. COVID-19 screen positive. Arterial blood gases on her percent FiO2 revealed a pO2 of 74, pCO2 66 and a pH of 7.25. He is seen today in consultation in the intensive care unit. He is awake. Able to state his name. He is tachycardic in the 120s. He is tachypneic in the 30s. Blood pressure stable. His received 2 L of fluid resuscitation. He is been given vancomycin and cefepime. Receiving bronchodilators. The patient is seen today 01/03/2023 in follow-up in the intensive care unit. He is currently on AirVo high flow oxygen at 40 L and 50% FiO2. He is receiving normal saline at 130 ML's per hour. Currently required norepinephrine at 2.82 mcg/m. White count 31.9. Hemoglobin 9.2. He remains afebrile. Chest x-ray reveals bilateral subsegmental infiltrates right greater than left. Pro- calcitonin 0.76. He remains on cefepime and vancomycin. Continued on Solu- Medrol. Remains on bronchodilators. The patient is seen today 01/04/2023 in follow-up in the intensive care unit. He is currently off the AirVo and on room air now. Chest x-ray reveals bibasilar airspace opacities. He has normal saline at 130 ML's per hour. Currently requiring norepinephrine at 2.5 mcg/m. He is on antibiotics in the f orm of vancomycin and cefepime. Blood cultures reveal no growth. Urine culture positive for gram-negative bacilli. White count 22.5. Hemoglobin 8.5. Platelets 287. Sodium 143. Potassium 3.3. Bicarb 23. BUN 26. Creatinine 0.79. Glucose 155. He remains on bronchodilators, IV Solu-Medrol, Lovenox for DVT prophylaxis. The patient is seen today 01/05/2023 in follow-up in the intensive care unit. He is currently sitting up in bed. Awake and alert in no acute distress. Maintaining O2 saturations in the 90s on room air. He has normal saline at 130 ML's per hour. Urine culture positive for Klebsiella pneumoniae. He remains on vancomycin and cefepime. Blood culture reveals no growth. White count 12.0. Hemoglobin 7.6. Platelets 223. Sodium 144. Potassium 4.0. Bicarb 22. BUN 25. Creatinine 0.89. Glucose 114. He remains on bronchodilators, IV Solu- Medrol, Lovenox for DVT prophylaxis. The patient is seen today 01/06/2023 in follow-up on the regular medical floor. He is resting comfortably in bed. Awake and alert. Poor historian. No acute distress. Maintaining O2 saturations in the 90s on room air. He is being treated for Klebsiella pneumoniae urinary tract infection with cefepime. He has normal saline at 75 ML's per hour. Lovenox for DVT prophylaxis. Creatinine 0.83. Objective - Vital Signs Vital signs: Vital Signs Temp 97.9 F 01/06/23 07:09 Pulse 59 L 01/06/23 07:09 Resp 15 01/06/23 07:09 BP 107/61 01/06/23 07:09 Pulse Ox 99 01/06/23 07:09 FiO2 21 01/04/23 08:43 Intake & Output 01/05/23 01/06/23 01/06/23 18:59 06:59 18:59 Intake Total 1155 Output Total 260 Balance 895 Intake: IV 655 Sodium Chloride 0.9% 1, 655 000 ml @ 75 mls/hr IV . [id number] DANUTA Rx#:[id number] Intake, IV Titration 400 Amount Sodium Chloride 0.9% 1, 150 000 ml @ 75 mls/hr IV . [id number] DANUTA Rx#:[id number] Vancomycin 1,000 mg In 250 Sodium Chloride 0.9% 250 ml @ 125 mls/hr IVPB Q12H DANUTA Rx#:[id number] Oral 100 Output: Urine 260 Other: Voiding Method Indwelling Catheter - Exam GENERAL EXAM: Alert, oriented x 1, 77-year-old male, on room air, comfortable in no apparent distress. HEAD: Normocephalic. EYES: Normal reaction of pupils, equal size. NOSE: Clear with pink turbinates. THROAT: No erythema or exudates. NECK: No masses, no JVD. CHEST: No chest wall deformity. LUNGS: Equal air entry with bilateral scattered rhonchi. CVS: S1 and S2 normal with no audible murmur, regular rhythm. ABDOMEN: No hepatosplenomegaly, normal bowel sounds, no guarding or rigidity. SPINE: No scoliosis or deformity SKIN: No rashes CENTRAL NERVOUS SYSTEM: No focal deficits, oriented times one, tone is normal in all 4 extremities. EXTREMITIES: Bilateral toenail onychomycosis. There is no peripheral edema. No clubbing, no cyanosis. Peripheral pulses are intact. - Labs CBC & Chem 7: 01/05/23 04:03 01/06/23 05:34 Labs: Microbiology - Last 24 Hours (Table) 01/02/23 08:15 Blood Culture - Preliminary Blood 01/02/23 08:00 Blood Culture - Preliminary Blood Assessment and Plan Assessment: Acute hypoxemic respiratory failure secondary to COVID-19 infection and possible aspiration. Chest x-ray shows bilateral infiltrates increased on the right. ProCalcitonin 0.76. Recovered and on room air. Patient did test positive for COVID-19. COVID-19 infection Acute urinary tract infection secondary to Klebsiella pneumoniae Leukocytosis secondary to above, trending down Lactic acidosis secondary to above Sepsis with hypotension secondary to urinary tract infection requiring norepinephrine, recovered Recent admission from 11/27 - 12/05/2022 for COVID-19 pneumonia and/or aspiration Chronic obstructive pulmonary disease, appears stable Essential hypertension Hyperlipidemia Parkinson's disease Bilateral toe onychomycosis Plan: The patient was seen and evaluated Labs and medications reviewed Continue cefepime, bronchodilators Lovenox for DVT prophylaxis Currently stable and on room air I have personally seen and examined the patient, performed the documentation and the assessment and plan as written. Number of minutes spent on the visit: 10.
--- NOTE | 2023-01-06 17:44 | P.PN ---
Subjective Progress Note Date: 01/06/23 Principal diagnosis: Pneumonia Patient is a 77-year-old male patient with multiple comorbidities including COPD hypertension hyperlipidemia Parkinson disease [facility] resident who was admitted to this facility in 2022 treated for COVID-19 pneumonia patient has been brought back to the hospital of the patient was noticed to be respiratory distress and low O2 sats, patient diagnosed with a pneumonia and admitted to the ICU on a BiPAP initially on today's evaluation that is 01/06/2023, the patient continues to be afebrile, the patient is breathing comfortably on room air patient on a good historian but when asked directly denies any shortness of breath no chest pain or cough, the patient denies having any nausea and vomiting no abdominal pain and no diarrhea The patient white count is down to 12.0 , creatinine 0.79 as of yesterday no blood work was done today, blood cultures negative urine is growing Klebsiella Objective - Vital Signs Vital signs: Vital Signs Temp 98.2 F 01/06/23 13:15 Pulse 61 01/06/23 13:15 Resp 18 01/06/23 13:15 BP 87/41 01/06/23 13:15 Pulse Ox 89 L 01/06/23 13:15 FiO2 21 01/04/23 08:43 Intake & Output 01/05/23 01/06/23 01/06/23 18:59 06:59 18:59 Intake Total 1155 Output Total 260 Balance 895 Intake: IV 655 Sodium Chloride 0.9% 1, 655 000 ml @ 75 mls/hr IV . [id number] DANUTA Rx#:[id number] Intake, IV Titration 400 Amount Sodium Chloride 0.9% 1, 150 000 ml @ 75 mls/hr IV . [id number] DANUTA Rx#:[id number] Vancomycin 1,000 mg In 250 Sodium Chloride 0.9% 250 ml @ 125 mls/hr IVPB Q12H DANUTA Rx#:[id number] Oral 100 Output: Urine 260 Other: Voiding Method Indwelling Catheter - Exam GENERAL DESCRIPTION: An elderly male lying in bed in no distress RESPIRATORY SYSTEM: Unlabored breathing , decreased breath sounds at bases HEART: S1 S2 regular rate and rhythm , ABDOMEN: Soft , no tenderness EXTREMITIES: No edema feet - Labs CBC & Chem 7: 01/05/23 04:03 01/06/23 05:34 Labs: Microbiology - Last 24 Hours (Table) 01/02/23 08:15 Blood Culture - Preliminary Blood 01/02/23 08:00 Blood Culture - Preliminary Blood Assessment and Plan (1) Pneumonia Current Visit: Yes Status: Acute Code(s): J18.9 - PNEUMONIA, UNSPECIFIED ORGANISM SNOMED Code(s): 023282338 (2) UTI (urinary tract infection) Current Visit: Yes Status: Acute Code(s): N39.0 - URINARY TRACT INFECTION, SITE NOT SPECIFIED SNOMED Code(s): 31312878 Plan: 1patient presented to the hospital with sepsis in this patient who was hypothermic tachycardic elevated white count elevated lactic acid was initially concern for likely pneumonia however more behaving offer UTI with sepsis now clinically 2-patient did tested positive for COVID-19 however he also tested positive about a month ago and could be a left lower antigen from the infection about a month ago rather than reinfection with COVID-19 3-patient urine has been finalized with Klebsiella pneumoniae 4-patient has shown some clinical improvement and will continue with cefepime and transitioned oral antibiotics on discharge Dictation was produced using [employer] dictation software. please excuse any grammatical, word or spelling errors. Time with Patient: Less than 30
[2023-01-06] MEDS: ATORVASTATIN 80 MG TAB PO SCH (21:47)
[2023-01-06] MEDS: allopurinoL 100 MG TAB PO SCH (21:47)
[2023-01-06] MEDS: CHLORTHALIDONE 25 MG TAB PO SCH (21:47)
[2023-01-07 06:24] LABS: African American GFR (CKD) >90 (>60 ml/min/1.73 sqM); Non-African American GFR(CKD) 85 (>60 ml/min/1.73 sqM)
[2023-01-07] MEDS: LEVOTHYROXINE 50 MCG TAB PO SCH ×2 (06:43→08:31)
[2023-01-07] MEDS: PANTOPRAZOLE 40 MG TABLET PO SCH ×3 (06:43→17:00)
[2023-01-07] MEDS: MIDODRINE 5 MG TAB PO SCH ×4 (06:43→17:00)
[2023-01-07] MEDS: ATORVASTATIN 80 MG TAB PO SCH ×2 (06:51→21:26)
[2023-01-07] MEDS: DIVALPROEX 500 MG TABLET.DR PO SCH ×2 (08:39→21:26)
[2023-01-07] MEDS: CEFEPIME 2 GM in SODIUM CHLORIDE 0.9% 100 ML IVPB SCH ×3 (08:39→23:51)
[2023-01-07] MEDS: SENNOSIDES-DOCUSATE SODIUM 1 EACH TAB PO SCH ×2 (08:39→21:26)
[2023-01-07] MEDS: MULTIVITAMINS, THERA 1 EACH TAB PO SCH (08:39)
[2023-01-07] MEDS: droNABinol 2.5 MG CAP PO SCH ×2 (08:39→21:26)
[2023-01-07] MEDS: CARBIDOPA-LEVODOPA ER 50-200MG 1 EACH TABLET.ER PO SCH ×3 (08:39→17:03)
[2023-01-07] MEDS: ENOXAPARIN 40 MG/0.4 ML SYRINGE SQ SCH (08:40)
[2023-01-07] MEDS: ALBUTEROL HFA INHALER INHALATION SCH ×4 (08:43→20:49)
--- NOTE | 2023-01-07 12:06 | P.PN ---
Subjective Progress Note Date: 12/31/22 Principal diagnosis: Pneumonia Patient is a 77-year-old male patient with multiple comorbidities including COPD hypertension hyperlipidemia Parkinson disease [facility] resident who was admitted to this facility in 2022 treated for COVID-19 pneumonia patient has been brought back to the hospital of the patient was noticed to be respiratory distress and low O2 sats, patient diagnosed with a pneumonia and admitted to the ICU on a BiPAP initially on today's evaluation that is 01/07/2023, the patient remains to be afebrile, the patient is breathing comfortably , the patient denies having chest pain and no worsening cough, the patient denies nausea and vomiting no abdominal pain and no diarrhea The patient white count is down to 12.0 , creatinine 0.79 as of 01/05/2023, no blood work was done today, blood cultures negative urine is growing Klebsiella Objective - Vital Signs Vital signs: Vital Signs Temp 99.0 F 01/07/23 07:35 Pulse 72 01/07/23 07:35 Resp 17 01/07/23 07:35 BP 134/64 01/07/23 07:35 Pulse Ox 97 01/07/23 08:43 FiO2 21 01/04/23 08:43 Intake & Output 01/06/23 01/07/23 01/07/23 18:59 06:59 18:59 Output Total 1550 Balance -1550 Output: Urine 1550 Other: Voiding Method Indwelling Catheter Indwelling Catheter - Exam GENERAL DESCRIPTION: An elderly male lying in bed in no distress RESPIRATORY SYSTEM: Unlabored breathing , decreased breath sounds at bases HEART: S1 S2 regular rate and rhythm , ABDOMEN: Soft , no tenderness EXTREMITIES: No edema feet - Labs CBC & Chem 7: 01/05/23 04:03 01/07/23 05:48 Assessment and Plan (1) Pneumonia Current Visit: Yes Status: Acute Code(s): J18.9 - PNEUMONIA, UNSPECIFIED ORGANISM SNOMED Code(s): 978008537 (2) UTI (urinary tract infection) Current Visit: Yes Status: Acute Code(s): N39.0 - URINARY TRACT INFECTION, SITE NOT SPECIFIED SNOMED Code(s): 62410092 Plan: 1patient presented to the hospital with sepsis in this patient who was hypothermic tachycardic elevated white count elevated lactic acid was initially concern for likely pneumonia however more behaving offer UTI with sepsis now clinically 2-patient did tested positive for COVID-19 however he also tested positive about a month ago and could be a left lower antigen from the infection about a month ago rather than reinfection with COVID-19 3-patient urine has been finalized with Klebsiella pneumoniae 4-patient continued to show clinical improvement and will continue with cefepime while inpatient and transitioned oral Ceftin 7 days on discharge Dictation was produced using [employer] dictation software. please excuse any grammatical, word or spelling errors. Time with Patient: Less than 30
[2023-01-07] MEDS: SODIUM CHLORIDE 0.9% 1,000 ML IV SCH ×2 (12:35→22:12)
--- NOTE | 2023-01-07 14:53 | P.PN ---
Subjective Progress Note Date: 01/07/23 This is a 77-year-old male with past medical history significant for COPD, hypertension, hyperlipidemia, Parkinson's disease, and schizophrenia. He resides at a residential facility. He has a legal guardian. He was discharged from here on 12/05/2022 after an acute hypoxemic respiratory failure episode secondary to COVID-19 infection and suspected aspiration. He was brought back to the emergency room early this morning after again being found to have low O2 saturations and respiratory distress. The patient himself is able to answer simple questions and follow basic commands. Otherwise a poor historian. Asked x-ray showed bilateral lower lobe infiltrates that were actually improved compared to the previous on 12/04/2022. Prominent air collection in the upper abdomen most likely related to gastric distention. CT angiogram ruled out pulmonary embolism. There is patchy groundglass and consolidative opacities in the bilateral lower lobes right greater than left. Additional patchy groundglass opacity in the right upper lobe. Reactive mediastinal and right hilar lymphadenopathy. He required BiPAP support currently 04/02 in the 100% FiO2. He has normal saline and 130 ML's per hour. White count 38.4. Hemoglobin 11.7. Platelets 483. Sodium 144. Potassium 4.2. Bicarb 29. BUN 26. Creatinine 1.10. Glucose 181. Lactic acid 5.2. ProBNP 2710. Urinalysis with large white count and few bacteria. Influenza screen negative. RSV screen negative. COVID-19 screen positive. Arterial blood gases on her percent FiO2 revealed a pO2 of 74, pCO2 66 and a pH of 7.25. He is seen today in consultation in the intensive care unit. He is awake. Able to state his name. He is tachycardic in the 120s. He is tachypneic in the 30s. Blood pressure stable. His received 2 L of fluid resuscitation. He is been given vancomycin and cefepime. Receiving bronchodilators. The patient is seen today 01/03/2023 in follow-up in the intensive care unit. He is currently on AirVo high flow oxygen at 40 L and 50% FiO2. He is receiving normal saline at 130 ML's per hour. Currently required norepinephrine at 2.82 mcg/m. White count 31.9. Hemoglobin 9.2. He remains afebrile. Chest x-ray reveals bilateral subsegmental infiltrates right greater than left. Pro- calcitonin 0.76. He remains on cefepime and vancomycin. Continued on Solu- Medrol. Remains on bronchodilators. The patient is seen today 01/04/2023 in follow-up in the intensive care unit. He is currently off the AirVo and on room air now. Chest x-ray reveals bibasilar airspace opacities. He has normal saline at 130 ML's per hour. Currently requiring norepinephrine at 2.5 mcg/m. He is on antibiotics in the form of vancomycin and cefepime. Blood cultures reveal no growth. Urine culture positive for gram-negative bacilli. White count 22.5. Hemoglobin 8.5. Platelets 287. Sodium 143. Potassium 3.3. Bicarb 23. BUN 26. Creatinine 0.79. Glucose 155. He remains on bronchodilators, IV Solu-Medrol, Lovenox for DVT prophylaxis. The patient is seen today 01/05/2023 in follow-up in the intensive care unit. He is currently sitting up in bed. Awake and alert in no acute distress. Maintaining O2 saturations in the 90s on room air. He has normal saline at 130 ML's per hour. Urine culture positive for Klebsiella pneumoniae. He remains on vancomycin and cefepime. Blood culture reveals no growth. White count 12.0. Hemoglobin 7.6. Platelets 223. Sodium 144. Potassium 4.0. Bicarb 22. BUN 25 . Creatinine 0.89. Glucose 114. He remains on bronchodilators, IV Solu-Medrol, Lovenox for DVT prophylaxis. The patient is seen today 01/06/2023 in follow-up on the regular medical floor. He is resting comfortably in bed. Awake and alert. Poor historian. No acute distress. Maintaining O2 saturations in the 90s on room air. He is being treated for Klebsiella pneumoniae urinary tract infection with cefepime. He has normal saline at 75 ML's per hour. Lovenox for DVT prophylaxis. Creatinine 0.83. on today's evaluation of 01/07/2023, the patient is being seen for a follow-up. Patient is resting comfortably in bed. The patient is afebrile and the patient is also hemodynamically stable. No nausea vomiting diarrhea or abdominal pain.the patient remains on IV cefepime. the patient was tested positive for Covid 19. There is also bibasilar airspace opacities reported suggestive of underlying bacterial infection based on that the patient was kept on IV cefepime. Objective - Vital Signs Vital signs: Vital Signs Temp 99.0 F 01/07/23 07:35 Pulse 72 01/07/23 07:35 Resp 17 01/07/23 07:35 BP 134/64 01/07/23 07:35 Pulse Ox 97 01/07/23 08:43 FiO2 21 01/04/23 08:43 Intake & Output 01/06/23 01/07/23 01/07/23 18:59 06:59 18:59 Output Total 1550 Balance -1550 Output: Urine 1550 Other: Voiding Method Indwelling Catheter Indwelling Catheter - Exam GENERAL EXAM: Alert, oriented x 1, 77-year-old male, on room air, comfortable in no apparent distress. HEAD: Normocephalic. EYES: Normal reaction of pupils, equal size. NOSE: Clear with pink turbinates. THROAT: No erythema or exudates. NECK: No masses, no JVD. CHEST: No chest wall deformity. LUNGS: Equal air entry with bilateral scattered rhonchi. CVS: S1 and S2 normal with no audible murmur, regular rhythm. ABDOMEN: No hepatosplenomegaly, normal bowel sounds, no guarding or rigidity. SPINE: No scoliosis or deformity SKIN: No rashes CENTRAL NERVOUS SYSTEM: No focal deficits, oriented times one, tone is normal in all 4 extremities. EXTREMITIES: Bilateral toenail onychomycosis. There is no peripheral edema. No clubbing, no cyanosis. Peripheral pulses are intact. - Labs CBC & Chem 7: 01/05/23 04:03 01/07/23 05:48 Assessment and Plan Plan: Acute hypoxemic respiratory failure secondary to COVID-19 infection and possible aspiration. Chest x-ray shows bilateral infiltrates increased on the right. ProCalcitonin 0.76. Recovered and on room air. Patient did test positive for COVID-19. COVID-19 infection Acute urinary tract infection secondary to Klebsiella pneumoniae Leukocytosis secondary to above, trending down Lactic acidosis secondary to above Sepsis with hypotension secondary to urinary tract infection requiring norepinephrine, recovered Recent admission from 11/27 - 12/05/2022 for COVID-19 pneumonia and/or aspiration Chronic obstructive pulmonary disease, appears stable Essential hypertension Hyperlipidemia Parkinson's disease Bilateral toe onychomycosis Plan: repeat chest x-ray in the morning Continue same antibiotic coverage Lovenox for DVT prophylaxis Currently stable and on room air
[2023-01-07] MEDS: CHLORTHALIDONE 25 MG TAB PO SCH (21:26)
[2023-01-07] MEDS: allopurinoL 100 MG TAB PO SCH (21:26)
[2023-01-08] MEDS: MIDODRINE 5 MG TAB PO SCH ×3 (06:49→17:04)
[2023-01-08] MEDS: PANTOPRAZOLE 40 MG TABLET PO SCH ×2 (06:49→17:05)
[2023-01-08] MEDS: LEVOTHYROXINE 50 MCG TAB PO SCH (06:49)
[2023-01-08] MEDS: CARBIDOPA-LEVODOPA ER 50-200MG 1 EACH TABLET.ER PO SCH ×3 (08:25→17:05)
[2023-01-08] MEDS: ENOXAPARIN 40 MG/0.4 ML SYRINGE SQ SCH (08:25)
[2023-01-08] MEDS: SENNOSIDES-DOCUSATE SODIUM 1 EACH TAB PO SCH ×2 (08:25→21:10)
[2023-01-08] MEDS: DIVALPROEX 500 MG TABLET.DR PO SCH ×2 (08:25→21:10)
[2023-01-08] MEDS: droNABinol 2.5 MG CAP PO SCH ×2 (08:25→21:10)
[2023-01-08] MEDS: MULTIVITAMINS, THERA 1 EACH TAB PO SCH (08:25)
[2023-01-08] MEDS: CEFEPIME 2 GM in SODIUM CHLORIDE 0.9% 100 ML IVPB SCH ×2 (08:25→17:04)
[2023-01-08] MEDS: ALBUTEROL HFA INHALER INHALATION SCH ×4 (09:57→21:17)
[2023-01-08] MEDS: SODIUM CHLORIDE 0.9% 1,000 ML IV SCH ×2 (11:52→17:04)
--- NOTE | 2023-01-08 12:02 | P.PN ---
Subjective Progress Note Date: 01/08/23 This is a 77-year-old male with past medical history significant for COPD, hypertension, hyperlipidemia, Parkinson's disease, and schizophrenia. He resides at a correction facility. He has a legal guardian. He was discharged from here on 12/05/2022 after an acute hypoxemic respiratory failure episode secondary to COVID-19 infection and suspected aspiration. He was brought back to the emergency room early this morning after again being found to have low O2 saturations and respiratory distress. The patient himself is able to answer simple questions and follow basic commands. Otherwise a poor historian. Asked x-ray showed bilateral lower lobe infiltrates that were actually improved compared to the previous on 12/04/2022. Prominent air collection in the upper abdomen most likely related to gastric distention. CT angiogram ruled out pulmonary embolism. There is patchy groundglass and consolidative opacities in the bilateral lower lobes right greater than left. Additional patchy groundglass opacity in the right upper lobe. Reactive mediastinal and right hilar lymphadenopathy. He required BiPAP support currently 04/02 in the 100% FiO2. He has normal saline and 130 ML's per hour. White count 38.4. Hemoglobin 11.7. Platelets 483. Sodium 144. Potassium 4.2. Bicarb 29. BUN 26. Creatinine 1.10. Glucose 181. Lactic acid 5.2. ProBNP 2710. Urinalysis with large white count and few bacteria. Influenza screen negative. RSV screen negative. COVID-19 screen positive. Arterial blood gases on her percent FiO2 revealed a pO2 of 74, pCO2 66 and a pH of 7.25. He is seen today in consultation in the intensive care unit. He is awake. Able to state his name. He is tachycardic in the 120s. He is tachypneic in the 30s. Blood pressure stable. His received 2 L of fluid resuscitation. He is been given vancomycin and cefepime. Receiving bronchodilators. The patient is seen today 01/03/2023 in follow-up in the intensive care unit. He is currently on AirVo high flow oxygen at 40 L and 50% FiO2. He is receiving normal saline at 130 ML's per hour. Currently required norepinephrine at 2.82 mcg/m. White count 31.9. Hemoglobin 9.2. He remains afebrile. Chest x-ray reveals bilateral subsegmental infiltrates right greater than left. Pro- calcitonin 0.76. He remains on cefepime and vancomycin. Continued on Solu- Medrol. Remains on bronchodilators. The patient is seen today 01/04/2023 in follow-up in the intensive care unit. He is currently off the AirVo and on room air now. Chest x-ray reveals bibasilar airspace opacities. He has normal saline at 130 ML's per hour. Currently requiring norepinephrine at 2.5 mcg/m. He is on antibiotics in the form of vancomycin and cefepime. Blood cultures reveal no growth. Urine culture positive for gram-negative bacilli. White count 22.5. Hemoglobin 8.5. Platelets 287. Sodium 143. Potassium 3.3. Bicarb 23. BUN 26. Creatinine 0.79. Glucose 155. He remains on bronchodilators, IV Solu-Medrol, Lovenox for DVT prophylaxis. The patient is seen today 01/05/2023 in follow-up in the intensive care unit. He is currently sitting up in bed. Awake and alert in no acute distress. Maintaining O2 saturations in the 90s on room air. He has normal saline at 130 ML's per hour. Urine culture positive for Klebsiella pneumoniae. He remains on vancomycin and cefepime. Blood culture reveals no growth. White count 12.0. Hemoglobin 7.6. Platelets 223. Sodium 144. Potassium 4.0. Bicarb 22. BUN 25 . Creatinine 0.89. Glucose 114. He remains on bronchodilators, IV Solu-Medrol, Lovenox for DVT prophylaxis. The patient is seen today 01/06/2023 in follow-up on the regular medical floor. He is resting comfortably in bed. Awake and alert. Poor historian. No acute distress. Maintaining O2 saturations in the 90s on room air. He is being treated for Klebsiella pneumoniae urinary tract infection with cefepime. He has normal saline at 75 ML's per hour. Lovenox for DVT prophylaxis. Creatinine 0.83. on today's evaluation of 01/07/2023, the patient is being seen for a follow-up. Patient is resting comfortably in bed. The patient is afebrile and the patient is also hemodynamically stable. No nausea vomiting diarrhea or abdominal pain.the patient remains on IV cefepime. the patient was tested positive for Covid 19. There is also bibasilar airspace opacities reported suggestive of underlying bacterial infection based on that the patient was kept on IV cefepime. On today's evaluation of 01/08/2023, patient is stable on room air oxygen. No significant signs of any respiratory distress. He remains on normal saline at rate of 75 mL an hour. He is on Lovenox for DVT prophylaxis. Is still covered with antibiotics. The patient on IV cefepime. The patient has not had labs for the past few days. He is on room air oxygen with a pulse ox of 94%. Is afebrile. Objective - Vital Signs Vital signs: Vital Signs Temp 98.4 F 01/08/23 08:00 Pulse 55 L 01/08/23 08:00 Resp 18 01/08/23 08:00 BP 149/61 01/08/23 08:00 Pulse Ox 94 L 01/08/23 08:00 FiO2 21 01/04/23 08:43 Intake & Output 01/07/23 01/08/23 01/08/23 18:59 06:59 18:59 Output Total 1950 Balance -1950 Output: Urine 1950 Other: Voiding Method Indwelling Catheter Indwelling Catheter Indwelling Catheter - Exam GENERAL EXAM: Alert, oriented x 1, 77-year-old male, on room air, comfortable in no apparent distress. HEAD: Normocephalic. EYES: Normal reaction of pupils, equal size. NOSE: Clear with pink turbinates. THROAT: No erythema or exudates. NECK: No masses, no JVD. CHEST: No chest wall deformity. LUNGS: Equal air entry with bilateral scattered rhonchi. CVS: S1 and S2 normal with no audible murmur, regular rhythm. ABDOMEN: No hepatosplenomegaly, normal bowel sounds, no guarding or rigidity. SPINE: No scoliosis or deformity SKIN: No rashes CENTRAL NERVOUS SYSTEM: No focal deficits, oriented times one, tone is normal in all 4 extremities. EXTREMITIES: Bilateral toenail onychomycosis. There is no peripheral edema. No clubbing, no cyanosis. Peripheral pulses are intact. - Labs CBC & Chem 7: 01/05/23 04:03 01/07/23 05:48 Labs: Microbiology - Last 24 Hours (Table) 01/02/23 08:15 Blood Culture - Final Blood 01/02/23 08:00 Blood Culture - Final Blood Assessment and Plan Plan: Acute hypoxemic respiratory failure secondary to COVID-19 infection and possible aspiration. Chest x-ray shows bilateral infiltrates increased on the right. ProCalcitonin 0.76. Recovered and on room air. Patient did test positive for CO VID-19. COVID-19 infection Acute urinary tract infection secondary to Klebsiella pneumoniae Leukocytosis secondary to above, trending down Lactic acidosis secondary to above Sepsis with hypotension secondary to urinary tract infection requiring norepinephrine, recovered Recent admission from 11/27 - 12/05/2022 for COVID-19 pneumonia and/or aspiration Chronic obstructive pulmonary disease, appears stable Essential hypertension Hyperlipidemia Parkinson's disease Bilateral toe onychomycosis Plan: Awaiting chest x-ray from today Continue same antibiotic coverage Aspiration precautions Lovenox for DVT prophylaxis Currently stable and on room air
--- NOTE | 2023-01-08 12:22 | PN ---
PROGRESS NOTE CHIEF COMPLAINT: COVID pneumonia and schizophrenia. HISTORY OF PRESENT ILLNESS: This gentleman is stable and there has been no interval change. It is not clear when he will be going back to the correction. PHYSICAL EXAMINATION: GENERAL: He remains pale. LUNGS: Breath sounds are heard bilaterally. CARDIAC: Normal. ABDOMEN: Soft, nontender. IMPRESSION: 1. Status post COVID pneumonia. 2. Schizophrenia. PLAN: He can go back to the correction anytime. MMODL / IJN: [id number] /
[2023-01-08 12:46] VITALS: BMI 17.4
[2023-01-08 14:19] VITALS: TEMP 98.1
--- NOTE | 2023-01-08 17:03 | P.PN ---
Subjective Progress Note Date: 01/08/23 Principal diagnosis: Pneumonia Patient is a 77-year-old male patient with multiple comorbidities including COPD hypertension hyperlipidemia Parkinson disease [facility] resident who was admitted to this facility in 2022 treated for COVID-19 pneumonia patient has been brought back to the hospital of the patient was noticed to be respiratory distress and low O2 sats, patient diagnosed with a pneumonia and admitted to the ICU on a BiPAP initially on today's evaluation that is 01/08/2023, the patient denies any fever or any chills, the patient is breathing comfortably on room air the patient remains to be lethargic and not a good historian, no diarrhea has been reported The patient white count is down to 12.0 as of 01/05/2023, creatinine is 0.85, blood cultures negative urine is growing Klebsiella Objective - Vital Signs Vital signs: Vital Signs Temp 98.1 F 01/08/23 14:00 Pulse 56 L 01/08/23 14:00 Resp 18 01/08/23 14:00 BP 124/69 01/08/23 14:00 Pulse Ox 93 L 01/08/23 14:00 FiO2 21 01/04/23 08:43 Intake & Output 01/07/23 01/08/23 01/08/23 18:59 06:59 18:59 Output Total 1950 1400 Balance -1950 -1400 Weight 56.5 kg Output: Urine 1950 1400 Other: Voiding Method Indwelling Catheter Indwelling Catheter Indwelling Catheter - Exam GENERAL DESCRIPTION: An elderly male lying in bed in no distress RESPIRATORY SYSTEM: Unlabored breathing , decreased breath sounds at bases HEART: S1 S2 regular rate and rhythm , ABDOMEN: Soft , no tenderness EXTREMITIES: No edema feet - Labs CBC & Chem 7: 01/05/23 04:03 01/07/23 05:48 Labs: Microbiology - Last 24 Hours (Table) 01/02/23 08:15 Blood Culture - Final Blood 01/02/23 08:00 Blood Culture - Final Blood Assessment and Plan (1) Pneumonia Current Visit: Yes Status: Acute Code(s): J18.9 - PNEUMONIA, UNSPECIFIED ORGANISM SNOMED Code(s): 394931394 (2) UTI (urinary tract infection) Current Visit: Yes Status: Acute Code(s): N39.0 - URINARY TRACT INFECTION, SITE NOT SPECIFIED SNOMED Code(s): 45346643 Plan: 1patient presented to the hospital with sepsis in this patient who was hypothermic tachycardic elevated white count elevated lactic acid was initially concern for likely pneumonia however more behaving offer UTI with sepsis now clinically 2-patient did tested positive for COVID-19 however he also tested positive about a month ago and could be a left lower antigen from the infection about a month ago rather than reinfection with COVID-19 3-patient urine has been finalized with Klebsiella pneumoniae 4-patient is slowly clinically improving and will continue with cefepime while inpatient and transitioned oral Ceftin on discharge Dictation was produced using [employer] dictation software. please excuse any grammatical, word or spelling errors. Time with Patient: Less than 30
[2023-01-08 18:15] VITALS: BP 145/66; PULSE 59; RESP 15
--- NOTE | 2023-01-08 19:48 | XR ---
EXAMINATION TYPE: XR chest 1V DATE OF EXAM: 01/08/2023 4:08 PM CLINICAL INDICATION:Male, 77 years old with history of Pneumonia; [facility] COMPARISON: Chest radiographs from 01/04/2023.. TECHNIQUE: XR chest 1V Frontal view of the chest. FINDINGS: Lungs/Pleura: The lung airspace opacities similar 01/04/2023.. There is no evidence of pleural effusion , focal consolidation, or pneumothorax. Pulmonary vascularity: Unremarkable. Heart/mediastinum: Cardiomediastinal silhouette is unremarkable. Musculoskeletal: Degenerative changes of the shoulder joints. IMPRESSION: Right lower lung airspace opacities could relate for pneumonia. Findings similar 01/04/2023.
--- NOTE | 2023-01-08 20:21 | DS ---
DISCHARGE SUMMARY CHIEF COMPLAINT: Fever, cough, shortness of breath, and COVID pneumonia. HISTORY OF PRESENT ILLNESS AND PHYSICAL EXAMINATION: Details of this man's history and physical can be found in the initial workup. LABORATORY STUDIES: While he was in the hospital, he had laboratory studies, details of which can be found in the laboratory section of his chart. COURSE IN THE HOSPITAL: After admission, he was placed on bedrest and started intravenous fluids and respiratory support. He wound up being in ICU and was found to have COVID. He deteriorated quite quickly. However, he then began to improve, and his respiratory support was decreased, and he was eventually able to be moved out of ICU to regular bed. After that, arrangements were made for him to go back to the longterm on hospice. FINAL DIAGNOSES: 1. COVID pneumonia. 2. Acute respiratory failure. 3. Schizophrenia. 4. Parkinson disease. OPERATIONS: None. CONSULTATIONS: Intensive Care and Pulmonology. CONDITION: He is improved. MMRISHI / GUALBERTO: [id number] /
[2023-01-08] MEDS: CHLORTHALIDONE 25 MG TAB PO SCH (21:10)
[2023-01-08] MEDS: ATORVASTATIN 80 MG TAB PO SCH (21:10)
[2023-01-08] MEDS: allopurinoL 100 MG TAB PO SCH (21:11)
--- NOTE | 2023-01-08 21:12 | PN ---
PROGRESS NOTE CHIEF COMPLAINT: COVID pneumonia. HISTORY OF PRESENT ILLNESS: Juan Manuel is doing well and is apparently going back to the half-way sometime, but is not clear when. PHYSICAL EXAMINATION: GENERAL: He is awake and alert, but confused which is his normal state. He is pale. VITAL SIGNS: Normal. CHEST: Clear. IMPRESSION: 1. Coronavirus disease pneumonia. 2. Schizophrenia. PLAN: Return to the half-way anytime. MMODL / IJN: [id number] /
--- NOTE | 2023-01-09 05:48 | PN ---
PROGRESS NOTE DATE OF SERVICE: 01/05/2023 CHIEF COMPLAINT: Respiratory failure and COVID pneumonia. HISTORY OF PRESENT ILLNESS: This gentleman is doing better. He is more awake and alert. He is progressing. He has grown Klebsiella out of the urine. PHYSICAL EXAMINATION: CHEST: Clear. CARDIAC: Normal. ABDOMEN: Soft and nontender. He is pale. IMPRESSION: 1. COVID pneumonia. 2. Respiratory failure. 3. Schizophrenia. 4. UTI with Klebsiella. PLAN: Progress activity and he will be going back to the senior care. The word is that he may be going on hospice. MMODL / IJN: [id number] /
--- NOTE | 2023-01-09 06:09 | PN ---
PROGRESS NOTE DATE OF SERVICE: 01/06/2023 CHIEF COMPLAINT: COVID pneumonia. HISTORY OF PRESENT ILLNESS: This gentleman is slowly improving. He could probably go back to the care home anytime. PHYSICAL EXAMINATION: CHEST: Clear. CARDIAC: Normal. ABDOMEN: Soft and nontender. IMPRESSION: Resolving COVID pneumonia. PLAN: Return to the care home this week. MMODL / IJN: [id number] /
== END 2023-01-08 23:58 | DRG 871 ==
LOC: EC 07:45 → EEVIPCON 07:45 → 2SICU 10:51 → 4SSUR 01-05 14:55
PROVIDERS: ADMIT Family Medicine; ATTEND Family Medicine
PROC: 5A09357 Assistance with Respiratory Ventilation, Less than 24 Consecutive Hours, Continuous Positive Airway Pressure (ICD-10-PCS; principal; 2023-01-02)
PROC: 3E043XZ Introduction of Vasopressor into Central Vein, Percutaneous Approach (ICD-10-PCS; 2023-01-04)
DX: A41.89 Other specified sepsis (principal); J12.82 Pneumonia due to coronavirus disease 2019; U07.1 COVID-19; J15.9 Unspecified bacterial pneumonia; J96.21 Acute and chronic respiratory failure with hypoxia; J44.1 Chronic obstructive pulmonary disease with (acute) exacerbation; J44.0 Chronic obstructive pulmonary disease with (acute) lower respiratory infection; N39.0 Urinary tract infection, site not specified; T17.890A Other foreign object in other parts of respiratory tract causing asphyxiation, initial encounter; R59.0 Localized enlarged lymph nodes; R68.0 Hypothermia, not associated with low environmental temperature; I95.9 Hypotension, unspecified; E78.5 Hyperlipidemia, unspecified; F20.9 Schizophrenia, unspecified; G20 Parkinson's disease; I10 Essential (primary) hypertension; K31.89 Other diseases of stomach and duodenum; Z66 Do not resuscitate; U09.9 Post COVID-19 condition, unspecified; B96.1 Klebsiella pneumoniae [K. pneumoniae] as the cause of diseases classified elsewhere; B35.1 Tinea unguium; Z79.890 Hormone replacement therapy; Z79.899 Other long term (current) drug therapy; Z59.6 Low income; Z51.5 Encounter for palliative care
CPT/HCPCS: 36415; 36600; 51702; 71045; 71275; 80048; 80053; 80202; 81001; 82533; 82565; 82805; 83605; 83735; 83880; 84132; 84145; 85025; 85610; 85730; 87040; 87077; 87086; 87186; 87636; 93005; 94640; 94660; 94760; 96365; 96366; 96368; 96375; 96376; 99291